=== PATIENT | male | born 1960 | race Caucasian/White ===

== ENCOUNTER 2018-10-13 05:57 | Observation (INO) | payer MEDICARE, MEDICAID ==
[2018-10-13] MEDS ORDERED: ceFAZolin 2 GM PREMIX in ORs 2 GM/50 ML BAG IVPB ONE (06:40)
[2018-10-13] MEDS ORDERED: Bupivacaine 0.5%* 50 ML VIAL ONE (06:47)
[2018-10-13] MEDS ORDERED: fentaNYL* 50 MCG/ML 2 ML VIAL (100 MCG VIAL) ONE (07:03)
[2018-10-13] MEDS ORDERED: Propofol* 10 MG/ML 20 ML BTL ONE (07:03)
[2018-10-13] MEDS ORDERED: Midazolam* 1 MG/ML 2 ML VIAL (2 MG) ONE (07:03)
[2018-10-13] MEDS ORDERED: Lidocaine 2% PF * 5 ML VIAL ONE (07:03)
[2018-10-13] MEDS ORDERED: Phenylephrine 10 MG/ML VIAL* 1 ML VIAL ONE (07:46)
[2018-10-13] MEDS ORDERED: VASOPRESSIN 20 UNITS/ML 1 ML VIAL ONE (07:49)
[2018-10-13] MEDS ORDERED: Naloxone* 0.4 MG/ML 1 ML VIAL IV PRN (08:07)
[2018-10-13] MEDS ORDERED: DiMENhydriNATE IV* 50 MG/ML VIAL IV PUSH PRN (08:07)
[2018-10-13] MEDS ORDERED: Metoclopramide IV* 5 MG/ML 2 ML VIAL ONE (08:07)
[2018-10-13] MEDS ORDERED: Dexamethasone IV* 4 MG/ML 1 ML (4 MG) ONE (08:07)
[2018-10-13] MEDS ORDERED: Ondansetron INJ* 2 MG/ML VIAL ONE (08:07)
[2018-10-13] MEDS ORDERED: Succinylcholine* 20 MG/ML 10 ML VIAL ONE (08:44)
[2018-10-13] MEDS ORDERED: Acetaminophen TAB* 325 MG PO PRN ×2 (09:08→09:20)
[2018-10-13] MEDS ORDERED: Bisacodyl SUPP* 10 MG SUPP PR PRN (09:08)
[2018-10-13] MEDS ORDERED: diPHENhydraMINE IV* 50 MG/ML 1 ml VIAL (BENADRYL) IV PRN (09:08)
[2018-10-13] MEDS ORDERED: oxyCODONE/Acetamin 5/325 MG* TAB PO PRN (09:08)
[2018-10-13] MEDS ORDERED: Magnesium Hydroxide LIQ* 30 ML UDC PO PRN (09:08)
[2018-10-13] MEDS ORDERED: oxyCODONE TAB* 5 MG TAB PO PRN (09:08)
[2018-10-13] MEDS ORDERED: oxyCODONE TAB* 5 MG TAB ONE ×2 (09:25→09:28)
[2018-10-13] MEDS: oxyCODONE TAB* 5 MG TAB PO PRN ×2 (09:26→09:28)
--- NOTE | 2018-10-13 09:27 | OP ---
Operative Report - Blank - Operative Report Date of Operation: 10/13/18 Note: PATIENT: William Castro DATE OF : 1960 DATE OF SURGERY: 10/13/2018 SURGEON: Bala Colon MD GENERAL FARM MANAGER: SHIVAM Cosme, whos assistance was necessary for positioning, retraction, help with instrumentation, and closure. ANESTHESIOLOGIST: Dr. Hernandez PREOPERATIVE DIAGNOSIS: Left ankle instability and peroneal tenosynovitis. POSTOPERATIVE DIAGNOSIS: Left ankle instability, peroneus brevis and longus tendon tears, and peroneal tenosynovitis. OPERATION: 1. Left ankle modified Brostrom procedure lateral ligament reconstruction. 2. Left peroneal tendon exploration with peroneus longus and peroneus brevis tenolysis, tenosynovectomy and excision of low-lying peroneus brevis muscle belly. ANESTHESIA: General IMPLANTS: none TOURNIQUET TIME: Less than 1 hour with an ankle Esmarch tourniquet SPECIMENS: none ESTIMATED BLOOD LOSS: minimal COMPLICATIONS: none STATUS: Stable from the operating room to the recovery room and then home. INDICATIONS FOR PROCEDURE: William has had persistent left ankle pain and instability despite extensive nonoperative treatment. Both operative and non operative treatment alternatives were reviewed. Further, the nature and risks of surgery were reviewed in careful detail, in the office as well as the pre-operative holding area. Our discussions regarding the risks of surgery included, but were not limited to, infection, wound problems, nerve injury, neuroma, RSD, persistent symptoms, recurrent instability, blood clot, failure of the surgery, and even the remote chance of catastrophic complication, including loss of limb. DESCRIPTION OF PROCEDURE: The patient was seen in the preoperative holding unit and informed written consent was obtained. The appropriate extremity was marked. The patient was then brought to the operating room and carefully positioned on the operating room table. Anesthesia was induced. All bony prominences were padded with great care. A chlorhexidine based pre-scrub was performed followed by a chloraprep prep and drape in standard sterile fashion. A surgical safety pause was then conducted in which we confirmed the appropriate patient, extremity, planned procedure, availability of equipment, indication and administration of prophylactic antibiotics, and DVT prophylaxis in the form of a compression boot on the non-surgical extremity. An Esmarch exsanguination of the limb was performed followed by the placement of an ankle Esmarch tourniquet. I utilized an incision overlying the distal fibula laterally. I carried the dissection down through the soft tissue to the level of the periosteum and superior peroneal retinaculum (SPR) with care taken to protect the sural nerve, which was not visualized during the procedure. I carefully incised the SPR off of the posterior fibula to expose the peroneal tendons. Dissection of the tendons was carried distally. The tendons were explored at this time for any tears. There were tears of both the peroneus longus and peroneus brevis tendons, but both tears were more degenerative appearing and not repairable. The torn parts of the tendons were sharply excised with tenotomy scissors. This left about 90% of the tendons intact. The remaining tendons appeared healthy and viable. There was a large amount of inflamed tenosynovium in the tendon sheath so an extensive tenosynovectomy was performed. Additionally, there was a low-lying peroneus brevis muscle belly which was debrided and excised. At this point, I carefully inspected the peroneal groove at the posterior aspect of the fibula. This was deemed to have adequate depth so the decision was made not to perform a groove deepening procedure. So at this point I carefully planned out the repair of the superior peroneal retinaculum. I then reduced the tendons and they sat nicely in the retro-fibular groove. The wound was copiously irrigated. I repaired the SPR utilizing #1 Vicryl suture in a transosseous horizontal mattress suture pattern. I utilized multiple sutures for this repair, appropriately tensioning the SPR. I was able to pass a [place] under the repaired SPR without difficulty after the repair. I then dissected anteriorly to expose the anterolateral ankle ligaments. We protected the superficial peroneal nerve at all times, which was not visualized within our field. Once we had adequately exposed a pocket anterior to the ligaments, we sharply took the ligaments down off of the anterior and distal aspect of the fibula using a 15 blade. The inferior extensor retinaculum was exposed and protected for subsequent repair later in the procedure. I then utilized a rongeur to make a trough along the fibula to receive the reconstructed ligaments. I then utilized K-wires to drill holes in the fibula for a transosseous suture repair of the lateral ligaments utilizing a horizontal mattress suture. Multiple #1 Vicryl sutures were passed through the fibula and then through the ligaments and then back through the fibula. These sutures were all passed with great care taken to appropriately tension both the ATFL as well as the CFL in order to get a nice tight repair. We held the ankle in a dorsiflexed and everted position while the ligaments and sutures were tied down over the fibular bone bridges. These held the ankle in a much improved position with excellent tension on the ligaments. We then utilized a rotational flap from the periosteum overlying the distal fibula to augment the repair. This was sewn down using a horizontal mattress stich overlying the ATFL. We further augmented the repair by bringing the inferior extensor retinaculum up to the fibula. There was a much improved anterior drawer at this point as compared to pre-operatively. The wound was copiously irrigated. We then irrigated the wound copiously again. The wound was closed in a layered fashion utilizing 3-0 Monocryl and 3-0 nylon. A sterile dressing was then applied and the ankle was splinted in a neutral position. All needle and sponge counts were correct at the end of the case. The patient was awakened from anesthesia and transferred to the recovery room in stable condition. There were no complications. ATTESTATION: I attest I was present and scrubbed and performed the critical portions of the procedure myself. POST-OPERATIVE PLAN: The patient will remain [id number] for an anticipated duration of 6 weeks. Follow up will be in 2 weeks for likely suture removal and transition into a short leg cast.
[2018-10-13] MEDS ORDERED: HYDROmorphone INJ1* 1 MG/ML SYRINGE ONE (09:28)
[2018-10-13] MEDS: HYDROmorphone INJ1* 1 MG/ML SYRINGE IV PRN ×4 (09:29→11:51)
[2018-10-13] MEDS ORDERED: Lactated Ringers 1000 ML Bag* 1,000 ML IV SCH (10:00)
--- NOTE | 2018-10-13 11:12 | PN ---
Progress Note - Progress Note Date of Service: 10/13/18 SOAP: Subjective: [Pt has just undergone surgery, a left lateral ligament ankle reconstruction ] Assessment: [S/P Left lateral ligament ankle reconstruction Plan: [Pt will stay overnight for observation today. We feel given that he has a high chance of developing pain and swelling with his splint in place, we would also like to have neurovascular checks done frequently. He does also have a history of Coumadin and plavix which he will need to restart tonight and tomorrow morning respectively. He will be seen by PT and evaluated NWB LLE We feel he is unasfe to be discharged home at this point ]
[2018-10-13] MEDS: oxyCODONE/Acetamin 5/325 MG* TAB PO PRN ×2 (13:00→17:06)
[2018-10-13] MEDS: ceFAZolin 1 GM ADVAN(*) 1 GM in NS 0.9% 50 ML* 50 ML IVPB SCH ×2 (14:02→22:04)
[2018-10-13] MEDS: Morphine 4 MG/ML VIAL (1 ml) 4 MG/ML VIAL IV PRN ×2 (14:09→18:50)
[2018-10-13] MEDS ORDERED: Warfarin TAB(*) 5 MG PO SCH (17:00)
[2018-10-13] MEDS: buPROPion SR TAB.SR* 150 MG PO SCH (20:45)
[2018-10-13] MEDS: Docusate CAP* 100 MG PO SCH (20:45)
[2018-10-13] MEDS: Venlafaxine EXT RELEASE CAP* 75 MG PO SCH (20:45)
[2018-10-13] MEDS: Cilostazol TAB* 100 MG PO SCH (20:46)
[2018-10-13] MEDS: ALPRAZolam TAB* 0.5 MG PO PRN (20:51)
[2018-10-13] MEDS: Magnesium Hydroxide LIQ* 30 ML UDC PO SCH (20:51)
[2018-10-13] MEDS: Cyclobenzaprine TAB* 10 MG PO PRN (20:52)
[2018-10-13] MEDS ORDERED: Atorvastatin* 40 MG TAB PO SCH (21:00)
[2018-10-13] MEDS ORDERED: traZODone TAB* 50 MG TAB PO SCH (21:00)
[2018-10-14] MEDS: oxyCODONE/Acetamin 5/325 MG* TAB PO PRN ×4 (00:55→13:25)
[2018-10-14] MEDS: ceFAZolin 1 GM ADVAN(*) 1 GM in NS 0.9% 50 ML* 50 ML IVPB SCH (05:48)
[2018-10-14 06:13] LABS: Hematocrit 35 % (42-52); Hemoglobin 12.5 g/dL (14.0-18.0); Mean Platelet Volume 6.8 fL (7.4-10.4); Platelet Count 277 10^3/uL (150-450)
[2018-10-14 06:28] LABS: BUN/Creatinine Ratio 11.8 (8-20); EGFR African American 83.2 (>60); EGFR Non-African American 68.8 (>60); Potassium 3.8 mmol/L (3.5-5.0)
[2018-10-14] MEDS: Magnesium Hydroxide LIQ* 30 ML UDC PO SCH (08:01)
[2018-10-14] MEDS: Venlafaxine EXT RELEASE CAP* 75 MG PO SCH (08:01)
[2018-10-14] MEDS: ALPRAZolam TAB* 0.5 MG PO PRN (08:01)
[2018-10-14] MEDS: Docusate CAP* 100 MG PO SCH (08:01)
[2018-10-14] MEDS: Cilostazol TAB* 100 MG PO SCH (08:01)
[2018-10-14] MEDS: buPROPion SR TAB.SR* 150 MG PO SCH (08:01)
[2018-10-14] MEDS: Cyclobenzaprine TAB* 10 MG PO PRN (08:02)
--- NOTE | 2018-10-14 08:59 | PN ---
Progress Note - Progress Note Date of Service: 10/14/18 SOAP: Subjective: POD #1 Left ankle ligament reconstruction, peroneal tenolysis. Doing well, pain controlled. Has not been OOB yet. Denies CP/SOB, calf pain, f/c, n/v. Objective: Vitals: Temp Pulse Resp BP Pulse Ox 97.8 F 70 18 122/61 95 10/14/18 03:58 10/14/18 03:58 10/14/18 08:02 10/14/18 03:58 10/14/18 03:58 Gen: A&Ox3, NAD at rest sitting in bed LLE: Splint C/D/I. +f/e at MTPs. N/V intact Labs: Laboratory Results - last 24 hr 0510/14/18 05:46 05:46 Hgb 12.5 L Hct 35 L Plt Count 277 MPV 6.8 L Sodium 138 Potassium 3.8 Chloride 106 Carbon Dioxide 28 Anion Gap 4 BUN 13 Creatinine 1.10 Est GFR ( Amer) 83.2 Est GFR (Non-Af Amer) 68.8 BUN/Creatinine Ratio 11.8 Glucose 118 H Calcium 8.0 L Assessment: POD #1 Left ankle ligament reconstruction, peroneal tenolysis Plan: NWB LLE Pt to work with PT, if stable he can be d/c'd home with VNS, otherwise would need CRISELDA Plavix and Coumadin restarted, bridge with Lovenox
[2018-10-14] MEDS ORDERED: Clopidogrel TAB* 75 MG PO SCH (09:00)
[2018-10-14] MEDS ORDERED: Vitamin THERAPEUTIC TAB PO SCH (09:00)
[2018-10-14] MEDS ORDERED: Enoxaparin(*) 80 MG/0.8 ML SYR SUBCUT SCH (09:00)
[2018-10-14] MEDS ORDERED: Lisinopril TAB* 10 MG PO SCH (09:00)
--- NOTE | 2018-10-14 10:04 | DS ---
Orthopedic Discharge Summary - Discharge Summary Date of Admission:10/13/18 Date of Discharge: 10/14/18 Date of Surgery: 10/13/18 Attending Orthopedic Provider: Bala Colon MD Pre-operative Diagnosis: Left ankle instability Operative Procedure: Left ankle ligament repair with peroneal tenolysis Disposition of Patient: Home Condition of Patient: Stable History: LUCAS RAMIREZ is a 58 year old M with years of increasingly severe left ankle pain and instability. Patient has failed conservative management and has elected to undergo a left ankle ligament repair. Hospital Course: LUCAS was admitted to [facility] on 10/13/18. Patient underwent a left ankle ligament repair with peroneal tenolysis without complication followed by a brief recovery in PACU and transfer to the Short Stay Surgical Unit in stable condition. Post-op day 1: patient was alert and in no acute distress. Dressing was clean, dry and intact. Operative extremity sensation intact to light touch distally, good capillary refill. Patient was deemed to be medically and orthopedically stable for discharge. Physical therapy goals were met. He was able to use a knee scooter to ambulate safely. Home Medications Medication Instructions Recorded Confirmed Type Cilostazol TAB* [Pletal TAB*] 100 mg PO BID 04/19/12 10/13/18 History Lisinopril [Lisinopril 2.5 MG-] 20 mg PO QAM 04/19/12 10/13/18 History Trazodone HCl 50 - 100 mg PO BEDTIME 04/19/12 10/13/18 History Warfarin [Coumadin] 5 mg PO 1700 04/19/12 10/13/18 History Cyclobenzaprine TAB* [Flexeril 10 mg PO TID PRN 02/02/14 10/13/18 History TAB*] ALPRAZolam [Alprazolam] 1 mg PO TID PRN 10/06/18 10/13/18 History Atorvastatin* [Lipitor*] 40 mg PO 2100 10/06/18 10/13/18 History Clopidogrel Bisulfate [Plavix] 75 mg PO QAM 10/06/18 10/13/18 History Venlafaxine ER (NF) [Effexor ER 150 mg PO BID 10/06/18 10/13/18 History (NF)] Diclofenac 1% GEL (NF) [Voltaren 1 applic TOPICAL TID PRN 10/10/18 10/13/18 History 1% GEL (NF)] Enoxaparin Sodium [Lovenox] 80 mg SQ Q12HR 10/10/18 10/13/18 History buPROPion HCl [Bupropion HCl Sr] 150 mg PO BID 10/13/18 10/13/18 History DISCHARGE INSTRUCTIONS: Non-weightbearing left leg with scooter or walker Wound Care: Keep splint on and dry until follow up Call Orthopedic office for increased pain, or fever. Go to ER with shortness of breath or chest pain. Diet: Regular diet, increase fluids and fiber to prevent constipation. Continue to use stool softeners, call office if no bowel motion within 48 hours. - Visiting home nurse to draw blood work for INR on Wednesday and and to provide home health aide DVT Prophylaxis: - Coumadin Dosing: Resume home dose of Coumadin (5mg daily except Wednesday and take 2.5mg) - Resume Plavix also - Lovenox 40mg daily until follow up with Coumadin clinic next week - Pain control with: Oxycodone 1 tab every 6 hours as needed FOLLOW UP: Follow up with Dr. Colon Within 10-14 days, call for appointment Please call our office with any questions or concerns ([phone]) Medications sent to [facility] to beds inpatient pharmacy
[2018-10-14 11:33] LABS: INR 1.17 (0.82-1.09)
[2018-10-14 14:02] VITALS: BP 105/52
[2018-10-14] MEDS ORDERED: Warfarin TAB(*) 5 MG PO SCH (17:00)
== END 2018-10-14 14:52 | disposition home or self-care (01) ==
LOC: OR 05:57 → SSU 09:08
PROVIDERS: ADMIT Orthopaedic Surgery; ATTEND Orthopaedic Surgery
DX: M25.372 Other instability, left ankle (principal); M76.72 Peroneal tendinitis, left leg; Z87.891 Personal history of nicotine dependence; Z88.6 Allergy status to analgesic agent; I10 Essential (primary) hypertension; I73.1 Thromboangiitis obliterans [Buerger's disease]; I82.409 Acute embolism and thrombosis of unspecified deep veins of unspecified lower extremity; E78.5 Hyperlipidemia, unspecified; F32.9 Major depressive disorder, single episode, unspecified; Z79.01 Long term (current) use of anticoagulants
CPT/HCPCS: 36415; 80048; 85014; 85018; 85049; 85610; 96365; 96366; 96367; 96372; 96375; 96376; A9270-GY; C1776; G0378; G8978-GP-CJ; G8979-GP-CI; G8987-GO-CI; G8988-GO-CH; J0330; J0690; J1100; J1170; J1650; J2250; J2270; J2405; J2704; J2765; J3010; J3490

== ENCOUNTER 2018-10-17 12:46 | Emergency (ER) | payer MEDICARE, MEDICAID ==
--- OUTSIDE RECORDS SUMMARY | 2018-10-17 13:21 | XMS REPORT | Continuity of Care Document ---
:1960 External Reference #:[id number] Author Name SNOW Croft Address [address] [place] [address] Care Team Providers Name Role Phone Frank Hardy MD Primary Care Physician Unavailable Payers Date Identification Numbers Payment Provider Subscriber Policy Number: [id number] Medicare William Castro PayID: [id number] [address] [place] [address] Policy Number: [id number] Medicaid William Castro Group Name: 1 1 [address] PayID: [id number] [place] [address] Effective: 2014 Policy Number: [employer] William Castro [id number] Claims Onset: 2014 Group Number: [id number] [address] [address] Group Name: [id number] [place] [address] PayID: [id number] Advance Directives Description No Information Available Problems Active Problems Provider Date Peroneal tendinitis, left leg Bala Colon MD Onset: 05/17/2018 Joint derangement Bala Colon MD Onset: 05/17/2018 Family History Description No Information Available Social History Type Date Description Comments Sex Unknown Tobacco Use Start: Unknown End: Unknown Patient is a former smoker Smoking Status Reviewed: 09/14/18 Patient is a former smoker Allergies, Adverse Reactions, Alerts Active Allergies Reaction Severity Comments Date Aspirin hives 05/17/2018 Medications Active Medications SIG Qnty Indications Ordering Provider Date Knee Scooter Disp 1 knee scooter M25.372 Akiko Dyer MD 10/04/2018 History Medications No Active Medications Unknown 05/17/2018 - 10/04/2018 Immunizations Description No Information Available Vital Signs Date Vital Result Comment 09/14/2018 1:06pm Height 70 inches 5'10" Weight 172.00 lb Heart Rate 80 /min BP Systolic 122 mmHg BP Diastolic 80 mmHg Body Temperature 97.3 F Pain Level 5 BMI (Body Mass Index) 24.7 kg/m2 07/06/2018 2:03pm Height 70 inches 5'10" Weight 171.00 lb Heart Rate 98 /min BP Systolic 138 mmHg BP Diastolic 80 mmHg Respiratory Rate 16 /min Body Temperature 99.0 F Pain Level 5 BMI (Body Mass Index) 24.5 kg/m2 05/17/2018 7:56am Height 70 inches 5'10" Weight 171.00 lb Heart Rate 82 /min Respiratory Rate 16 /min Body Temperature 97.0 F Pain Level 7 BMI (Body Mass Index) 24.5 kg/m2 Results Description No Information Available Procedures Description No Information Available Encounters Type Date Location Provider Dx Diagnosis Office Visit 09/14/2018 Orthopedic Bala Colon M25.372 Other 1:[facility]p [facility] instability, left ankle M76.72 Peroneal tendinitis, left leg Office Visit 07/06/2018 Orthopedic Bala Colon, M25.372 Other instability, 2:30p [facility] 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
[2018-10-17 14:11] VITALS: BP 106/68
--- NOTE | 2018-10-17 15:34 | ED ---
Adult Trauma - HPI Summary HPI Summary: Patient is a 58-year-old male who had recently had left foot surgery presenting to the ED after 3 falls in the past 3 days from arriving home from his surgery. He states he has been falling because he does not have a scooter at home. He has a walker given to him but he states the walker is too big for his apartment. For this reason he has not been using it. He has been hopping around on his right leg due to the nonweightbearing status of his left leg. As he is hopping on his right leg, he will often trip and fall. He denies any injuries after he falls. Denies any pain at this time. He states he called the orthopedic clinic and advised him to come here for further evaluation of his falls. Upon EMS arrival , he was placed in a cervical collar. He states his neck does not hurt, but this was precaution. - History of Current Complaint Chief Complaint: EDFall Stated Complaint: FALL/EVAL PER EMS Time Seen by Provider: 10/17/18 12:59 Hx Obtained From: Patient Mechanism of Injury: Fall Onset/Duration: Started Days Ago Onset of Pain: Minutes Onset Severity: Mild Current Severity: Mild Pain Intensity: 0 Pain Scale Used: 0-10 Numeric Aggravating Factor(s): Nothing Alleviating Factor(s): Nothing - Allergy/Home Medications Allergies/Adverse Reactions: Allergies Allergy/AdvReac Type Severity Reaction Status Date / Time aspirin Allergy Intermediate Hives Verified 10/13/18 06:48 Adhesive Tape Allergy Tears skin Verified 10/13/18 06:48 off latex Allergy Rash Verified 10/13/18 06:48 PMH/Surg Hx/FS Hx/Imm Hx Previously Healthy: Yes Endocrine/Hematology History: Reports: Hx Anticoagulant Therapy - coumadin Denies: Hx Diabetes, Hx Thyroid Disease Cardiovascular History: Reports: Hx Deep Vein Thrombosis - three bypasses, Hx Hypercholesterolemia, Hx Hypertension, Hx Peripheral Vascular Disease - 3 bypass /stents to the left leg-fem iliac/fem pop-left toe amputation, Other Cardiovascular Problems/Disorders - Hyperlipidemia Respiratory History: Denies: Hx Asthma, Hx Chronic Obstructive Pulmonary Disease (COPD), Other Respiratory Problems/Disorders GI History: Denies: Hx Ulcer, Other GI Disorders History: Denies: Other Problems/Disorders Musculoskeletal History: Reports: Hx Arthritis, Hx Back Problems, Hx Tendonitis - Peroneal tendinitis, left leg, Other Musculoskeletal History - Left chronic ankle instability-joint derangement Sensory History: Reports: Hx Contacts or Glasses - Glasses, Hx Hearing Aid - Bilateral Opthamlomology History: Reports: Hx Contacts or Glasses - Glasses Neurological History: Reports: Hx Nerve Disease - peripheral neuropathy Denies: Other Neuro Impairments/Disorders Psychiatric History: Reports: Hx Anxiety, Hx Depression Denies: Hx Suicide Attempt, Hx Substance Abuse - Surgical History Surgery Procedure, Year, and Place: 3 Bypasses, Femoral, Popliteal, [place], 3 Stents Left Leg [facility]. Rotator cuff repair 2014 [facility]. NASAL SEPTOPLASTy 1999 [facility] Hx Anesthesia Reactions: No Infectious Disease History: No Infectious Disease History: Denies: Hx Hepatitis, Hx Human Immunodeficiency Virus (HIV), Traveled Outside the [place] in Last 30 Days - Family History Known Family History: Negative: Cardiac Disease, Hypertension - Social History Occupation: Unemployed Lives: Alone Alcohol Use: Occasionally Hx Substance Use: No Substance Use Type: Reports: None Hx Tobacco Use: Yes Smoking Status (MU): Former Smoker Type: Cigarettes Amount Used/How Often: 1-2 PPD for 22 years Review of Systems Negative: Fever, Chills, Fatigue, Skin Diaphoresis Negative: Palpitations, Chest Pain Negative: Shortness Of Breath, Cough Genitourinary: Negative Positive: no symptoms reported, see HPI Musculoskeletal: Negative Skin: Negative Neurological: Negative All Other Systems Reviewed And Are Negative: Yes Physical Exam Triage Information Reviewed: Yes Vital Signs On Initial Exam: Initial Vitals Pulse Pulse Ox 78 90 10/17/18 12:49 10/17/18 12:49 Vital Signs Reviewed: Yes Appearance: Positive: Well-Appearing, Well-Nourished Skin: Positive: Warm, Skin Color Reflects Adequate Perfusion Head/Face: Positive: Normal Head/Face Inspection Eyes: Positive: EOMI, Conjunctiva Clear Neck: Positive: Supple, No Lymphadenopathy Cardiovascular: Positive: RRR, Pulses are Symmetrical in both Upper and Lower Extremities Musculoskeletal: Positive: Normal, Strength/ROM Intact Neurological: Positive: Speech Normal Psychiatric: Positive: Affect/Mood Appropriate AVPU Assessment: Alert Diagnostics - Vital Signs Vital Signs Temp Pulse Resp BP Pulse Ox 10/17/18 14:10 98.9 F 84 16 106/68 92 10/17/18 13:50 66 84/50 90 10/17/18 13:20 107/59 10/17/18 13:00 71 95 05/20/19 12:50 98.7 F 76 17 93/53 92 10/17/18 12:49 78 90 - Laboratory Lab Statement: Any lab studies that have been ordered have been reviewed, and results considered in the medical decision making process. Adult Trauma Course/Dx - Course Course Of Treatment: Patient is evaluated for multiple falls in the past 3 days due to hopping around his apartment. He states he has not been able to secure a scooter as he is #18 on the waiting list. He is unable to use his walker well at home due to the size of his apartment. Patient denies any CP, SOB, neck pain, back pain, headache, head injury, LOC or any other injuries after his falls. He denies any dizziness or weakness as the cause of his falls. He states these are mechanical. He states he is feeling otherwise well at this time. He called the ambulance as he had no way to get to the ED. Discussed case with social work who suggested calling that [employer] in attempts to borrow one until he can secure one of his own. He states he is okay for discharge at this time and will continue to attempt to use his walker more to prevent further falling. - Diagnoses Provider Diagnoses: Accident due to mechanical fall without injury Discharge - Sign-Out/Discharge Documenting (check all that apply): Patient Departure Patient Received Moderate/Deep Sedation with Procedure: No - Discharge Plan Condition: Stable Disposition: HOME Referrals: Frank Hardy MD [Primary Care Provider] - Additional Instructions: Please call [employer] to try to obtain a scooter [employer] Address: [address] [place] [address] Hours: 8:30a-5pm - Billing Disposition and Condition Condition: STABLE Disposition: Home
== END 2018-10-17 14:10 | disposition home or self-care (01) ==
LOC: ED 12:46
DX: Z04.3 Encounter for examination and observation following other accident (principal); Z86.718 Personal history of other venous thrombosis and embolism; E78.00 Pure hypercholesterolemia, unspecified; I10 Essential (primary) hypertension; I73.9 Peripheral vascular disease, unspecified; E78.5 Hyperlipidemia, unspecified; G62.9 Polyneuropathy, unspecified; Z87.891 Personal history of nicotine dependence; Z79.01 Long term (current) use of anticoagulants; Z98.890 Other specified postprocedural states; W18.09XA Striking against other object with subsequent fall, initial encounter; Y92.9 Unspecified place or not applicable
CPT/HCPCS: 99282

== ENCOUNTER 2018-10-18 12:53 | Observation (INO) | payer MEDICARE, MEDICAID ==
--- NOTE | 2018-10-18 14:06 | ED ---
Adult Trauma - HPI Summary HPI Summary: Patient is a 58-year-old male with a recent history of left sided foot and ankle surgery performed by Dr. Slater presenting to the ED with frequent falls. He was seen in the ED yesterday. Yesterday, social work was consulted to obtain a scooter. Patient states he has been unable to use his walker at home due to the size of his apartment. Provider had given him the phone number and information on [employer] to contact to borrow scooter. Patient states he is currently on the waiting list and is #18. Yesterday, he was comfortable with discharge home. Today he arrives requesting alf placement or placement to the hospital due to his frequent falls. He states since being discharged yesterday he has fallen 2-3 more times. He is now endorsing pain to the left hip. He states he has not tried to bear any weight on the hip as he is not to bear any weight on the foot. He has not been taking pain medication at home including ibuprofen or Tylenol. States he is allergic to ibuprofen as he is currently on Coumadin. Denies any other injuries status post falls. - History of Current Complaint Chief Complaint: EDFall Stated Complaint: LEFT LEG PAIN PER PT Time Seen by Provider: 10/18/18 12:58 Hx Obtained From: Patient Mechanism of Injury: Direct Blow Ambulatory at the Scene: No Onset Severity: Mild Current Severity: Mild Pain Intensity: 9 Pain Scale Used: 0-10 Numeric Character: Aching Aggravating Factor(s): Nothing Alleviating Factor(s): Nothing Associated Signs & Symptoms: Positive: Negative - Allergy/Home Medications Allergies/Adverse Reactions: Allergies Allergy/AdvReac Type Severity Reaction Status Date / Time aspirin Allergy Intermediate Hives Verified 10/18/18 13:09 Adhesive Tape Allergy Tears skin Verified 10/18/18 13:09 off latex Allergy Rash Verified 10/18/18 13:09 PMH/Surg Hx/FS Hx/Imm Hx Previously Healthy: Yes Endocrine/Hematology History: Reports: Hx Anticoagulant Therapy - coumadin Denies: Hx Diabetes, Hx Thyroid Disease Cardiovascular History: Reports: Hx Deep Vein Thrombosis - three bypasses, Hx Hypercholesterolemia, Hx Hypertension, Hx Peripheral Vascular Disease - 3 bypass /stents to the left leg-fem iliac/fem pop-left toe amputation, Other Cardiovascular Problems/Disorders - Hyperlipidemia Respiratory History: Denies: Hx Asthma, Hx Chronic Obstructive Pulmonary Disease (COPD), Other Respiratory Problems/Disorders GI History: Denies: Hx Ulcer, Other GI Disorders History: Denies: Other Problems/Disorders Musculoskeletal History: Reports: Hx Arthritis, Hx Back Problems, Hx Tendonitis - Peroneal tendinitis, left leg, Other Musculoskeletal History - Left chronic ankle instability-joint derangement Sensory History: Reports: Hx Contacts or Glasses - Glasses, Hx Hearing Aid - Bilateral Opthamlomology History: Reports: Hx Contacts or Glasses - Glasses Neurological History: Reports: Hx Nerve Disease - peripheral neuropathy Denies: Other Neuro Impairments/Disorders Psychiatric History: Reports: Hx Anxiety, Hx Depression Denies: Hx Suicide Attempt, Hx Substance Abuse - Surgical History Surgery Procedure, Year, and Place: 3 Bypasses, Femoral, Popliteal, Illiac, 3 Stents Left Leg [facility]. Rotator cuff repair 2014 [facility]. NASAL SEPTOPLASTy 1999 [facility] Hx Anesthesia Reactions: No Infectious Disease History: No Infectious Disease History: Denies: Hx Hepatitis, Hx Human Immunodeficiency Virus (HIV), Traveled Outside the [place] in Last 30 Days - Family History Known Family History: Negative: Cardiac Disease, Hypertension - Social History Occupation: Unemployed Lives: Alone Alcohol Use: Occasionally Hx Substance Use: No Substance Use Type: Reports: None Hx Tobacco Use: Yes Smoking Status (MU): Former Smoker Type: Cigarettes Amount Used/How Often: 1-2 PPD for 22 years Review of Systems Constitutional: Negative Negative: Fever, Chills, Fatigue Negative: Palpitations, Chest Pain Negative: Shortness Of Breath, Cough Genitourinary: Negative Positive: no symptoms reported, see HPI Positive: Arthralgia - left lateral hip pain s/p fall this morning Positive: Rash Neurological: Negative All Other Systems Reviewed And Are Negative: Yes Physical Exam Triage Information Reviewed: Yes Vital Signs On Initial Exam: Initial Vitals Temp Pulse Resp BP Pulse Ox 97.6 F 79 16 125/63 100 10/18/18 12:57 10/18/18 12:57 10/18/18 12:57 10/18/18 12:57 10/18/18 12:57 Vital Signs Reviewed: Yes Appearance: Positive: Well-Appearing, Well-Nourished Skin: Positive: Warm, Skin Color Reflects Adequate Perfusion Head/Face: Positive: Normal Head/Face Inspection Eyes: Positive: EOMI, Conjunctiva Clear Neck: Positive: Supple, No Lymphadenopathy Respiratory/Lung Sounds: Positive: Clear to Auscultation, Breath Sounds Present Cardiovascular: Positive: RRR, Pulses are Symmetrical in both Upper and Lower Extremities Musculoskeletal: Positive: Pain @ - left hip pain - lateral Neurological: Positive: Sensory/Motor Intact, Alert, Oriented to Person Place, Time Psychiatric: Positive: Normal, Affect/Mood Appropriate AVPU Assessment: Alert Diagnostics - Vital Signs Vital Signs Temp Pulse Resp BP Pulse Ox 10/18/18 12:57 97.6 F 79 16 125/63 100 - Laboratory Lab Statement: Any lab studies that have been ordered have been reviewed, and results considered in the medical decision making process. Adult Trauma Course/Dx - Course Course Of Treatment: Patient is not complaining of left sided hip pain from one of his falls over the past day. He was seen in the ED yesterday and discharged home. Today he is willing to be admitted at this time and is requesting this as he has been having too many frequent falls and is concerned over his health and the recovery to his foot and ankle. He has not been taking any medications including ibuprofen or Tylenol. He does endorse some pain to the incision site of the left foot. Denies any weakness, fevers, sweats, chills. He continues to state these falls are mechanical as he does not have a scooter at home. I discussed this with [facility] social work, who agrees to come see patient. Physical therapy is ordered from the ED. Discussed case with Dr. Caban to attempt at admission due to frequent falls. Left hip x-ray obtained and pending. Labs pending. Patient is signed out to Eddie Beach PA-C pending admission/discharge status, labs and xray. - Diagnoses Differential Diagnosis/HQI/PQRI: Positive: Contusion(s), Fracture, Other - frequent falls, weakness Provider Diagnoses: Fall Discharge - Sign-Out/Discharge Documenting (check all that apply): Sign-Out Patient Signing out patient TO: Eddie Beach Patient Received Moderate/Deep Sedation with Procedure: No - Discharge Plan Condition: Fair Referrals: Frank Hardy MD [Primary Care Provider] - - Billing Disposition and Condition Condition: FAIR
[2018-10-18 14:17] LABS: ABS Eosinophils 0.2 10^3/ul (0-0.6); ABS Lymphocytes 0.9 10^3/ul (1.0-4.8); ABS Monocytes 0.4 10^3/ul (0-0.8); ABS Neutrophils 3.9 10^3/ul (1.5-7.7); Eosinophil % 3.2 %; Hematocrit 37 % (42-52); Hemoglobin 12.9 g/dL (14.0-18.0); Lymphocyte % 16.3 %; Mean Corpuscular HGB Conc 34 g/dL (31-36); Mean Corpuscular Hemoglobin 34 pg (27-31); Mean Corpuscular Volume 100 fL (80-94); Nucleated Red Blood Cells % 0.1; Platelet Count 396 10^3/uL (150-450); Red Blood Count 3.73 10^6 /uL (4.18-5.48); Red Cell Distribution Width 15 % (10.5-15); White Blood Count 5.3 10^3/uL (3.5-10.8)
[2018-10-18 14:34] LABS: INR 1.17 (0.82-1.09)
[2018-10-18 14:46] LABS: Albumin 3.6 g/dL (3.2-5.2); Albumin/Globulin Ratio 1.6 (1-3); BUN/Creatinine Ratio 13.5 (8-20); C Reactive Protein 67.19 mg/L (<8.01); Calcium 8.9 mg/dL (8.6-10.3); EGFR African American 88.8 (>60); EGFR Non-African American 73.4 (>60); Globulin 2.3 g/dL (2-4); Potassium 5.1 mmol/L (3.5-5.0); Total Bilirubin 1.3 mg/dL (0.2-1.0); Total Protein 5.9 g/dL (6.4-8.9)
[2018-10-18] MEDS ORDERED: Acetaminophen TAB* 325 MG PO PRN (16:04)
[2018-10-18] MEDS ORDERED: ALPRAZolam TAB* 0.5 MG PO PRN (16:12)
[2018-10-18] MEDS: oxyCODONE/Acetamin 5/325 MG* TAB PO PRN ×2 (17:33→21:41)
--- NOTE | 2018-10-18 17:51 | HP ---
CC: Dr. Frank Hardy; Dr. Colon * HISTORY AND PHYSICAL: DATE OF ADMISSION: 10/18/18 PRIMARY CARE PROVIDER: Dr. Frank Hardy. ORTHOPEDIC SURGEON: Dr. Colon. ATTENDING PHYSICIAN: Dr. Camilla Caban * (dictated by SHIVAM Villar). CHIEF COMPLAINT: Left ankle pain and difficulty with ambulation. HISTORY OF PRESENT ILLNESS: Mr. Castro is a 58-year-old male with past medical history of coronary artery disease, Buerger's, hyperlipidemia, hypertension, DVT , who presents today with complaints of left ankle pain, status post ligament repair on 10/13/18. He was then discharged to home the following day with instructions for nonweightbearing left leg with use of scooter or walker. He notes that he was unable to obtain a scooter. He states that he was offered a wheelchair, but it did not fit in his apartment and that he was not interested in a walker. It is noted that the patient was in the ER the day prior to admission on 10/17/18, stating that he has had 3 falls in the past 3 days. He presented again today stating that he has fallen approximately 5 times in the last 24 hours since the day prior. The patient notes that he has not hit his head in the process of falling. He does report left hip pain due to the fall. He also complains of left ankle pain, which he states is a 9.5/10. He states that the area is tingling. He does have a history of peripheral neuropathy. The patient denies chest pain, shortness of breath, abdominal pain, nausea, vomiting, diarrhea, constipation. He denies fever, chills, cough. He denies loss of sensation or numbness in the left foot. He denies inability to move the toes. While in the emergency room, the patient received a full workup, which included blood work and left hip/pelvis imaging. The hospitalist team was asked to evaluate the patient for admission. PAST MEDICAL HISTORY: 1. Coronary artery disease with triple bypass, 4 stents. 2. Hypertension. 3. Hyperlipidemia. 4. Buerger's disease. 5. Peripheral neuropathy. 6. Depression. 7. Anxiety. 8. History of DVT. PAST SURGICAL HISTORY: 1. Left ankle on 10/13/18. 2. Triple bypass with 4 stents. 3. Left rotator cuff. 4. Septoplasty. 5. 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 HOME MEDICATIONS: 1. Acetaminophen 650 mg p.o. q.4 hours p.r.n. pain. 2. Alprazolam 1 mg p.o. q.i.d. p.r.n. anxiety. 3. Atorvastatin 40 mg p.o. daily. 4. Bupropion SR 150 mg p.o. b.i.d. 5. Cilostazol 100 mg p.o. b.i.d. 6. Clopidogrel 75 mg p.o. daily. 7. Diclofenac 1% gel 1 application topically t.i.d. p.r.n. pain. 8. Enoxaparin 80 mg subcu daily. 9. Lisinopril 20 mg p.o. daily. 10. Trazodone 50 to 100 mg p.o. at bedtime. 11. Venlafaxine 150 mg p.o. daily. ALLERGIES: ASPIRIN, hives; LATEX, rash; ADHESIVE TAPE "tears skin off." FAMILY HISTORY: Positive for heart disease, diabetes, stroke. Negative for cancer. SOCIAL HISTORY: The patient states that he quit smoking approximately 25 years ago. Prior to that, he has smoked for about 12 years, 2 packs per day. The patient states he occasionally drinks and reports that he does not consume alcohol on a weekly basis. He is disabled. He lives home alone. In the event that he is unable to make his own medical decisions, he appoints his sister, Erika Thornton, to be his surrogate decision maker. REVIEW OF SYSTEMS: A 10-point review of systems was performed and all the pertinent positives and negatives are in the HPI. All other systems are negative. PHYSICAL EXAMINATION GENERAL: Mr. Castro is a well-developed, well-nourished, somewhat unkempt, middle- aged white male, who is sitting up in bed. He appears to be in no acute distress. He appears comfortable. He is cooperative and appropriate. VITAL SIGNS: Temperature 97.6 temporal, heart rate 79, respiratory rate 16, oxygen saturation 100% on room air, blood pressure 125/63. HEENT: PERRL. EOMI. Sclerae without icterus. The patient is noted to have hearing aids bilaterally. He is wearing glasses. Edentulous. Oral mucous membranes are moist. There are no lesions. The pharynx is clear. NECK: With full range of motion. Trachea at midline. Nontender to palpation. RESPIRATORY: Symmetrical chest expansion without use of accessory muscles. The lungs are clear to auscultation bilaterally. There is no wheeze, rhonchi, or rubs. CARDIOVASCULAR: Regular rate and rhythm with S1, S2 present. There are no murmurs, rubs, clicks, or gallops. There is no JVD. ABDOMEN: Flat. Bowel sounds noted in all quadrants. The abdomen is soft. There is mild tenderness to palpation diffusely. MUSCULOSKELETAL: Full range of motion without pain or deformities. EXTREMITIES: Skin is warm and smooth bilaterally. There is no clubbing or cyanosis. Radial pulses palpable. Right pedal pulse palpable. The patient's left leg has a partial cast that is wrapped. Dressing is clean, dry, and intact. NEURO: The patient is awake. He is alert and oriented x3. He is able to move all of his extremities. Sensation intact distally to the left foot. The left third digit has been amputated. DIAGNOSTIC STUDIES/LAB DATA: Left hip/pelvis x-ray, impression: Degenerative changes of the left hip. Pelvis ring is intact. ASSESSMENT AND PLAN: Mr. Castro is a 58-year-old male with past medical history of left ankle ligament repair on 10/13/18, coronary artery disease, Buerger's, history of deep venous thrombosis, who presented today with difficulty ambulating due to inability to obtain a scooter. He will be admitted to observation for: 1. Left ankle ligament repair, 10/13/18. Ortho recommended nonweightbearing left leg. Physical therapy and occupational therapy will be ordered. The patient should be discharged with instructions to obtain a scooter. The patient will be continued on Percocet. He will also be continued on Lovenox for DVT prophylaxis, which he last administered this morning; therefore, we will continue it tomorrow. 2. Coronary artery disease. Continue atorvastatin, lisinopril, clopidogrel. 3. Hypertension. Continue home medications. 4. Depression, anxiety. The patient's home medication of alprazolam will be ordered p.r.n. He will continue his venlafaxine and bupropion. 5. Code status: Full code. 6. DVT prophylaxis: The patient scores 2 according to the DVT Risk Assessment , which places him at moderate risk. He is on postoperative Lovenox and we will continue this at home dose. TIME SPENT: Approximately 45 minutes was spent on this admission, greater than half that time was spent with the patient obtaining history, performing physical , and reviewing the plan of care. The case has been reviewed with my attending, Dr. Caban, who is in agreement with the plan of care. SHIVAM ANDERSON [id number]/[facility] #: [id number] DANIELA
[2018-10-18] MEDS: ALPRAZolam TAB* 0.5 MG PO PRN (20:47)
[2018-10-18] MEDS: traZODone TAB* 50 MG TAB PO PRN (20:47)
[2018-10-18] MEDS: Cilostazol TAB* 100 MG PO SCH (20:47)
[2018-10-18] MEDS: buPROPion SR TAB.SR* 150 MG PO SCH (20:47)
[2018-10-19] MEDS: oxyCODONE/Acetamin 5/325 MG* TAB PO PRN ×6 (01:40→22:07)
[2018-10-19] MEDS ORDERED: Ketorolac INJ* 15 MG/ML 1 ML VIAL IV PUSH ONE (02:03)
[2018-10-19] MEDS ORDERED: Enoxaparin(*) 80 MG/0.8 ML SYR SUBCUT SCH (09:00)
[2018-10-19] MEDS: Cilostazol TAB* 100 MG PO SCH ×2 (10:12→21:18)
[2018-10-19] MEDS: Atorvastatin* 40 MG TAB PO SCH (10:12)
[2018-10-19] MEDS: buPROPion SR TAB.SR* 150 MG PO SCH ×2 (10:12→21:18)
[2018-10-19] MEDS: Venlafaxine EXT RELEASE CAP* 75 MG PO SCH (10:12)
[2018-10-19] MEDS: Lisinopril TAB* 10 MG PO SCH (10:12)
[2018-10-19] MEDS: Clopidogrel TAB* 75 MG PO SCH (10:12)
--- NOTE | 2018-10-19 11:01 | PN ---
Progress Note - Progress Note Date of Service: 10/19/18 SOAP: Subjective: []Patient seen and examined at bedside today. He returned to the ER yesterday after falling 5x at home. Falls occurred while using his walker on carpet at home, he feels falls were mechanical in nature. He is unsure if he hit his head when falling, but reports no loss of consciousness or confusion. He does not feel he injured his left foot/ankle in the falls. Has no complaints today, but feels he has been unsteady to ambulate at home with his walker Objective: []General: NAD, a&ox3 LLE: Splint CDI and in good condition. Sensation intact to light touch distally , flexion and extension of MTPs intact without associated pain. Right calf supple and nontender. Assessment: []SP Left ankle modified Brostrom procedure lateral ligament reconstruction. Left peroneal tendon exploration with peroneus longus and peroneus brevis tenolysis, tenosynovectomy and excision of low-lying peroneus brevis muscle belly now admitted due to falls at home Plan: []NWB LLE May ambulate with knee scooter with PT. Head CT due to multiple falls at home on blood thinners Xrays left foot and ankle Needs rehab placement patient is not safe for discharge to home Vital Signs Temp 97.6 F 10/19/18 08:27 Pulse 59 10/19/18 08:27 Resp 18 10/19/18 10:56 BP 97/52 10/19/18 08:27 Pulse Ox 100 10/19/18 08:27 Intake & Output 10/18/18 10/19/18 10/19/18 18:59 06:59 18:59 Intake Total 2200 210 Output Total 1175 Balance 1025 210 Weight 170 lb Intake: Oral 2200 210 Output: Urine 1175 Other: # Bowel Movements 0 Laboratory Last Values WBC 5.3 10^3/uL (3.5-10.8) 10/18/18 14:08 RBC 3.73 10^6 /uL (4.18-5.48) L 10/18/18 14:08 Hgb 12.9 g/dL (14.0-18.0) L 10/18/18 14:08 Hct 37 % (42-52) L 10/18/18 14:08 MCV 100 fL (80-94) H 10/18/18 14:08 MCH 34 pg (27-31) H 10/18/18 14:08 MCHC 34 g/dL (31-36) 10/18/18 14:08 RDW 15 % (10.5-15) 10/18/18 14:08 Plt Count 396 10^3/uL (150-450) 10/18/18 14:08 MPV 7.0 fL (7.4-10.4) L 10/18/18 14:08 Neut % (Auto) 73.1 % 10/18/18 14:08 Lymph % (Auto) 16.3 % 10/18/18 14:08 [place] % (Auto) 7.1 % 10/18/18 14:08 Eos % (Auto) 3.2 % 10/18/18 14:08 Baso % (Auto) 0.3 % 10/18/18 14:08 Absolute Neuts (auto) 3.9 10^3/ul (1.5-7.7) 10/18/18 14:08 Absolute Lymphs (auto) 0.9 10^3/ul (1.0-4.8) L 10/18/18 14:08 Absolute Monos (auto) 0.4 10^3/ul (0-0.8) 10/18/18 14:08 Absolute Eos (auto) 0.2 10^3/ul (0-0.6) 10/18/18 14:08 Absolute Basos (auto) 0.0 10^3/ul (0-0.2) 10/18/18 14:08 Absolute Nucleated RBC 0.0 10^3/ul 10/18/18 14:08 Nucleated RBC % 0.1 10/18/18 14:08 INR (Anticoag Therapy) 1.17 (0.82-1.09) H 10/18/18 14:08 Sodium 139 mmol/L (135-145) 10/18/18 14:08 Potassium 5.1 mmol/L (3.5-5.0) H 10/18/18 14:08 Chloride 105 mmol/L (101-111) 10/18/18 14:08 Carbon Dioxide 29 mmol/L (22-32) 10/18/18 14:08 Anion Gap 5 mmol/L (2-11) 10/18/18 14:08 BUN 14 mg/dL (6-24) 10/18/18 14:08 Creatinine 1.04 mg/dL (0.67-1.17) 10/18/18 14:08 Est GFR ( Amer) 88.8 (>60) 10/18/18 14:08 Est GFR (Non-Af Amer) 73.4 (>60) 10/18/18 14:08 BUN/Creatinine Ratio 13.5 (8-20) 10/18/18 14:08 Glucose 91 mg/dL (70-100) 10/18/18 14:08 Calcium 8.9 mg/dL (8.6-10.3) 10/18/18 14:08 Total Bilirubin 1.30 mg/dL (0.2-1.0) H 10/18/18 14:08 AST 35 U/L (13-39) 10/18/18 14:08 ALT 16 U/L (7-52) 10/18/18 14:08 Alkaline Phosphatase 102 U/L (34-104) 10/18/18 14:08 C-Reactive Protein 67.19 mg/L (<8.01) H 10/18/18 14:08 Total Protein 5.9 g/dL (6.4-8.9) L 10/18/18 14:08 Albumin 3.6 g/dL (3.2-5.2) 10/18/18 14:08 Globulin 2.3 g/dL (2-4) 10/18/18 14:08 Albumin/Globulin Ratio 1.6 (1-3) 10/18/18 14:08
--- NOTE | 2018-10-19 11:13 | PN ---
Subjective Date of Service: 10/19/18 Interval History: Mr. Castro is feeling about the same today. He reports 7/10 left ankle pain which is consistent with what he has been experiencing recently, though he thinks his pain has gotten worse since surgery and that is why he is falling. He is not sure if he hit his head any of those times. He has had difficulty getting around his apartment because it is mostly carpeted and he has a hard time moving the walker around. Denies CP, SOB, N/V, leg pain. He does feel he needs to go to rehab prior to returning home as he does not feel safe d/t frequent falls. To clarify surgical history: NO cardiac cath, stenting, or CABG. He has had 3 LLE bypasses - femoral, iliac, popliteal - in that order starting in 2002. Had failed stenting in all of these vessels. Vascular issues and the DVTs he has had are all secondary to Buerger's disease. Has been on Coumadin since 2002 which is when he had his first DVT. No concerns from nursing. Family History: Unchanged from Admission Social History: Unchanged from Admission Past Medical History: Unchanged from Admission Objective Active Medications: Acetaminophen (Tylenol Tab*) 650 mg PO Q4H PRN FEVER/PAIN Alprazolam (Xanax Tab*) 0.5 mg PO QID PRN ANXIETY Atorvastatin Calcium (Lipitor*) 40 mg PO DAILY [facility] Bupropion HCl (Wellbutrin Sr Tab*) 150 mg PO BID [facility] Cilostazol (Pletal Tab*) 100 mg PO BID [facility] Clopidogrel Bisulfate (Plavix Tab*) 75 mg PO DAILY [facility] Enoxaparin Sodium (Lovenox(*)) 80 mg SUBCUT BID RANDEE Lisinopril (Prinivil Tab*) 20 mg PO DAILY [facility] Oxycodone/Acetaminophen (Percocet 5/325 Tab*) 1 tab PO Q4H PRN Pain Trazodone HCl (Desyrel Tab*) 50 mg PO BEDTIME PRN INSOMNIA Venlafaxine HCl (Effexor Xr Cap*) 150 mg PO DAILY [facility] Warfarin Sodium (Coumadin Tab(*)) 2.5 mg PO SuTh@1700 RANDEE; Protocol Warfarin Sodium (Coumadin Tab(*)) 5 mg PO MoTuWeFrSa@1700 RANDEE; Protocol Vital Signs - 8 hr 05/10/19/18 10/19/18 03:34 05:59 08:00 Temperature 98.1 F Pulse Rate 61 Respiratory 16 16 16 Rate Blood Pressure 109/59 (mmHg) O2 Sat by Pulse 99 Oximetry 10/19/18 10/19/18 10/19/18 08:27 10:12 10:56 Temperature 97.6 F Pulse Rate 59 Respiratory 16 18 18 Rate Blood Pressure 97/52 (mmHg) O2 Sat by Pulse 100 Oximetry Oxygen Devices in Use Now: None Appearance: Middle-aged male sitting in chair in NAD Eyes: No Scleral Icterus Ears/Nose/Mouth/Throat: Mucous Membranes Moist Neck: NL Appearance and Movements; NL JVP, Trachea Midline Respiratory: Symmetrical Chest Expansion and Respiratory Effort, Clear to Auscultation Cardiovascular: NL Sounds; No Murmurs; No JVD, RRR Abdominal: NL Sounds; No Tenderness; No Distention Extremities: No Edema, - - Surgical cast in place LLE Skin: No Rash or Ulcers Neurological: Alert and Oriented x 3 Lines/Tubes/Other Access: Clean, Dry and Intact Peripheral IV Nutrition: Taking PO's Result Diagrams: 10/18/18 14:08 10/18/18 14:08 Assess/Plan/Problems-Billing Assessment: Mr. Castro is a 58 yo M with PMH of HTN, HLD, Buerger's disease with resulting DVT s/p multiple bypasses, neuropathy, and recent total left ankle ligament repair on 10/13/[address] Colon; who presented to the ED with c/o difficulty ambulating and multiple falls at home. - Patient Problems (1) Inability to ambulate due to left ankle or foot Code(s): R26.2 - DIFFICULTY IN WALKING, NOT ELSEWHERE CLASSIFIED Comment: - S/p left ankle ligament repair on 10/13/[address] Colon - Reported to have 4 falls in a 24hr period prior to admission; not sure if he hit his head; was not able to obtain a scooter as recommended and was unsuccessful with a walker - Left ankle and foot xray unremarkable for fracture - CT brain unremarkable for hemorrhage - Appreciate Ortho consult - PT/OT evals; NWB LLE per d/c summary from prior visit - Will need CRISELDA as returning home is not a safe discharge - Continue Percocet (2) History of DVT (deep vein thrombosis) Code(s): Z86.718 - PERSONAL HISTORY OF OTHER VENOUS THROMBOSIS AND EMBOLISM Comment: - There was some confusion regarding Lovenox dosing; he was on 80mg BID preop and stopped the day before surgery as instructed; at d/c he was placed on only 40mg daily and instructed to resume Coumadin; he has been taking 40mg daily but did not resume Coumadin - Spoke with PCP office to confirm usual Coumadin dosing; he has been on Coumadin since 2002 so is stable on that dosing - Lovenox 80mg BID bridging to Coumadin (goal INR 2.5-3.5) (3) Buerger's disease Code(s): I73.1 - THROMBOANGIITIS OBLITERANS [BUERGER'S DISEASE] Comment: - LLE only, s/p femoral, iliac, popliteal stenting and bypasses - Continue Pletal, Plavix (4) Hypertension Code(s): I10 - ESSENTIAL (PRIMARY) HYPERTENSION Comment: - Borderline soft pressures, SBP 90-120s - Continue lisinopril (5) Hyperlipidemia Code(s): E78.5 - HYPERLIPIDEMIA, UNSPECIFIED Comment: - Continue atorvastatin (6) Anxiety and depression Code(s): F41.9 - ANXIETY DISORDER, UNSPECIFIED; F32.9 - MAJOR DEPRESSIVE DISORDER, SINGLE EPISODE, UNSPECIFIED Comment: - Continue venlafaxine, bupropion, Xanax (7) DVT prophylaxis Code(s): Z29.9 - ENCOUNTER FOR PROPHYLACTIC MEASURES, UNSPECIFIED Comment: - Lovenox bridging to Coumadin (goal INR 2.5-3.5) (8) Full code status Code(s): Z78.9 - OTHER SPECIFIED HEALTH STATUS Comment: Status and Disposition: Inpatient. Anticipate d/c to [facility] when a bed offer is obtained as he is medically stable. Attending: Sami Bautista
[2018-10-19] MEDS ORDERED: Warfarin TAB(*) 5 MG PO SCH (17:00)
[2018-10-19] MEDS: Enoxaparin(*) 80 MG/0.8 ML SYR SUBCUT SCH (21:20)
[2018-10-20] MEDS: ALPRAZolam TAB* 0.5 MG PO PRN ×2 (02:11→08:54)
[2018-10-20] MEDS: oxyCODONE/Acetamin 5/325 MG* TAB PO PRN ×2 (02:12→07:22)
[2018-10-20] MEDS: traZODone TAB* 50 MG TAB PO PRN (02:12)
[2018-10-20 04:55] LABS: ABS Eosinophils 0.3 10^3/ul (0-0.6); ABS Lymphocytes 1.6 10^3/ul (1.0-4.8); ABS Monocytes 0.4 10^3/ul (0-0.8); ABS Neutrophils 2.6 10^3/ul (1.5-7.7); Eosinophil % 5.4 %; Hematocrit 36 % (42-52); Hemoglobin 12.4 g/dL (14.0-18.0); Lymphocyte % 32.2 %; Mean Corpuscular HGB Conc 35 g/dL (31-36); Mean Corpuscular Hemoglobin 34 pg (27-31); Mean Corpuscular Volume 99 fL (80-94); Mean Platelet Volume 7.1 fL (7.4-10.4); Nucleated Red Blood Cells % 0.1; Platelet Count 408 10^3/uL (150-450); Red Blood Count 3.61 10^6 /uL (4.18-5.48); Red Cell Distribution Width 15 % (10.5-15); White Blood Count 4.9 10^3/uL (3.5-10.8)
[2018-10-20 05:01] LABS: INR 1.24 (0.82-1.09)
[2018-10-20 05:12] LABS: Calcium 8.5 mg/dL (8.6-10.3); Potassium 4.1 mmol/L (3.5-5.0)
[2018-10-20 05:18] LABS: BUN/Creatinine Ratio 16.5 (8-20); EGFR African American 84.1 (>60); EGFR Non-African American 69.5 (>60)
[2018-10-20] MEDS: Lisinopril TAB* 10 MG PO SCH (08:53)
[2018-10-20] MEDS: Cilostazol TAB* 100 MG PO SCH (08:53)
[2018-10-20] MEDS: Clopidogrel TAB* 75 MG PO SCH (08:53)
[2018-10-20] MEDS: Venlafaxine EXT RELEASE CAP* 75 MG PO SCH (08:53)
[2018-10-20] MEDS: Enoxaparin(*) 80 MG/0.8 ML SYR SUBCUT SCH (08:54)
[2018-10-20] MEDS: Atorvastatin* 40 MG TAB PO SCH (08:54)
[2018-10-20] MEDS: buPROPion SR TAB.SR* 150 MG PO SCH (08:54)
--- NOTE | 2018-10-20 11:05 | DS ---
CC: Dr. Frank Hardy; Dr. Bala Colon* DISCHARGE SUMMARY: DATE OF ADMISSION: 10/18/18 DATE OF DISCHARGE: 10/20/18 PRIMARY CARE PROVIDER: Dr. Frank Hardy. ORTHOPEDIC SURGEON: Dr. Bala Colon. ATTENDING PHYSICIAN: Dr. Sami Bautista* (dictated by Ana Foster NP). PRIMARY DIAGNOSES: 1. Inability to ambulate due to nonweightbearing status, left lower extremity, status post ligament repair on 10/13/18. 2. Falls. SECONDARY DIAGNOSES: 1. History of deep vein thrombosis. 2. Buerger's disease. 3. Hypertension. 4. Hyperlipidemia. 5. Anxiety. 6. Depression. STUDIES WHILE IN THE HOSPITAL: 1. EKG on 10/18/18 shows normal sinus rhythm with PACs and PVCs and a rate of 75, QTc 415, no ischemic changes. 2. Left hip pelvis x-ray on 10/18/18 reads as degenerative changes of the left hip. Pelvic ring is intact. 3. Brain CT on 10/19/18 reads as no evidence of intracranial mass or hemorrhage. 4. Left ankle x-ray on 10/19/18 reads as limited radiographic exam of the left ankle and foot secondary to the overlying splint cast without suspicious abnormality. 5. Left foot x-ray on 10/19/18 reads as limited radiographic exam of the left ankle and foot secondary to the overlying splint cast without suspicious abnormality. CONSULTATIONS WHILE IN THE HOSPITAL: SHIVAM Cardenas from Orthopedics, . HISTORY OF PRESENT ILLNESS AND HOSPITAL COURSE: Mr. Castro is a 58-year-old male with past medical history of hypertension, hyperlipidemia, Buerger's disease with resulting DVT, status post multiple stents and bypasses, neuropathy , and recent left ankle ligament repair on 10/13/[address] Colon, who presented to the emergency room on 10/18/18 with complaints of left ankle pain and difficulty with ambulation. Please see the history and physical by SHIVAM Villar for complete summary of the events leading up to this hospitalization. In short, the patient underwent a left ankle ligament repair on 10/13/[address] Colon and was discharged from this facility on . He was instructed to use a scooter or walker at home though ultimately the patient reports that because most of his home is carpeted he had significant difficulty using a walker and therefore had multiple falls. He reported 3 falls in 3 days after surgery and then 5 falls within 24 hours of presenting to the emergency room. He denied any head injuries. In the emergency room, he had imaging as noted above and labs, which were mostly unremarkable except for a mild anemia consistent with his baseline and mildly elevated potassium at 5.1 and an elevated CRP at 67. Vital signs were stable. He was admitted by the hospitalist service longterm care to find mcc placement. The following day, the patient was evaluated by Physical Therapy, who noted that he would benefit from short-term rehab. He was also evaluated by Occupational Therapy, who felt as though he would benefit from rehabilitation. The patient was seen by SHIVAM Cardenas from Orthopedics, who ultimately had no acute concerns. She noted that the patient should remain nonweightbearing in the left lower extremity and said that he may ambulate with a knee scooter if he was able to obtain one. When I saw the patient on 10/19/18, the patient did report to me that he was unsure of he hit his head during any of his falls and so a brain CT was done as he has been on anticoagulation. There were no bleeds noted. I will note that there was some confusion regarding dosing of the patient's Lovenox. He had been on 80 mg b.i.d. of therapeutic Lovenox preoperatively and stopped that the day prior to surgery as instructed. At discharge here from the hospital on 10/14/18, he was discharged on only 40 mg daily of Lovenox and instructed to resume his Coumadin. He had been taking the 40 mg daily but did not resume his Coumadin because those instructions were not clear to him. The patient has been on Coumadin since 2002 due to a history of DVT and he does have a goal INR of 2.5 to 3.5 due to the presence of left lower extremity . As of today, the patient's INR remains subtherapeutic at 1.24. The patient has been offered a bed for rehab at [facility] and has accepted. Mr. Castro is stable for discharge today. Vital signs are as follows: Temp 98.8, heart rate 81, respiratory rate 16, oxygen saturation 99% on room air, blood pressure 107/72. DISCHARGE MEDICATIONS: New Medications: Oxycodone/acetaminophen 5/325 mg 1 tab p.o. q.4 hours p.r.n. pain, max daily dose of 6 tabs. Changed Medications: Enoxaparin 80 mg subcu q.12 hours (previously was 40 mg daily). Continued Home Medications: 1. Alprazolam 1 mg p.o. 4 times a day p.r.n. anxiety. 2. Atorvastatin 40 mg p.o. daily. 3. Bupropion 150 mg p.o. b.i.d. 4. Pletal 100 mg p.o. b.i.d. 5. Plavix 75 mg p.o. daily. 6. Lisinopril 20 mg p.o. daily. 7. Venlafaxine 150 mg p.o. daily. 8. Coumadin 2.5 mg p.o. Wednesday and . 9. Coumadin 5 mg p.o. Wednesday, Wednesday, Wednesday, Wednesday, Wednesday. 10. Acetaminophen 650 mg p.o. q.4 hours p.r.n. pain. 11. Diclofenac 1% gel 1 application topically t.i.d. p.r.n. pain. 12. Trazodone 50 to 100 mg p.o. at bedtime. DISCHARGE PLAN: Mr. Castro will be discharged to subacute rehab at [facility]. Activity will be nonweightbearing on the left lower extremity, otherwise as tolerated. Diet will be heart healthy. Medications are noted above. The patient can take Percocet for pain. As noted above, he should be on 80 mg every 12 hours of Lovenox for therapeutic dosing bridging to Coumadin. He can resume his usual Coumadin dosing as he has been on Coumadin for quite some time and has been stable on that dosing, so he should continue this daily until he has reached a goal INR of 2.5 to 3.5. He can continue his other usual medications when I have not made any further changes. The patient will need to follow up with a provider at [facility] and should follow up with his primary care provider after discharge from rehab. He has been instructed to return to the emergency room or nearest hospital for any worsening of symptoms, shortness of breath, lightheadedness, dizziness, chest discomfort, high fevers, chills, night sweats, loss of consciousness, or any other worrisome signs or symptoms. DISCHARGE CONDITION: Stable. DISCHARGE DISPOSITION: [facility] Facility, [facility]. This is a summarized report of a complex medical history and hospital stay. For further details, please see the entire medical record. TIME SPENT: Approximately 45 minutes was spent on this discharge. ANA FOSTER, COMMUNITY ASSISTANT [id number]/CPS #: [id number] DANIELA
[2018-10-20 12:26] VITALS: BP 130/74
[2018-10-20] MEDS ORDERED: Warfarin TAB(*) 2.5 MG PO SCH (17:00)
== END 2018-10-20 12:20 ==
LOC: ED 12:53 → SSU 16:04
PROVIDERS: ADMIT Internal Medicine; ATTEND Internal Medicine
DX: R26.2 Difficulty in walking, not elsewhere classified (principal); Z98.890 Other specified postprocedural states; Z86.718 Personal history of other venous thrombosis and embolism; Z91.81 History of falling; I73.1 Thromboangiitis obliterans [Buerger's disease]; I10 Essential (primary) hypertension; E78.5 Hyperlipidemia, unspecified; F41.9 Anxiety disorder, unspecified; F32.9 Major depressive disorder, single episode, unspecified; Z79.01 Long term (current) use of anticoagulants; Z88.6 Allergy status to analgesic agent; Z87.891 Personal history of nicotine dependence; R21 Rash and other nonspecific skin eruption
CPT/HCPCS: 36415; 70450; 80048; 80053; 85025; 85610; 86140; 93005; 96365; 96372; 99284; A9270-GY; G0378; G8978-GP-CJ; G8979-GP-CI; G8987-GO-CJ; G8988-GO-CI; J1650; J1885

== ENCOUNTER 2018-10-26 15:28 | Emergency (ER) | payer MEDICARE, MEDICAID ==
[2018-10-26 16:16] LABS: ABS Basophils 0.1 10^3/ul (0-0.2); ABS Eosinophils 0.2 10^3/ul (0-0.6); ABS Lymphocytes 1.2 10^3/ul (1.0-4.8); ABS Monocytes 0.6 10^3/ul (0-0.8); ABS Neutrophils 7.4 10^3/ul (1.5-7.7); Eosinophil % 2.5 %; Hematocrit 41 % (42-52); Lymphocyte % 12.2 %; Mean Corpuscular HGB Conc 34 g/dL (31-36); Mean Corpuscular Hemoglobin 34 pg (27-31); Mean Corpuscular Volume 100 fL (80-94); Mean Platelet Volume 7.6 fL (7.4-10.4); Nucleated Red Blood Cells % 0.1; Platelet Count 828 10^3/uL (150-450); Red Cell Distribution Width 15 % (10.5-15); White Blood Count 9.5 10^3/uL (3.5-10.8)
--- NOTE | 2018-10-26 16:30 | ED ---
Psychiatric Complaint - HPI Summary HPI Summary: Pt is a 58 y/o M presenting to the ED brought in by EMS for a psychiatric complaint. The pt is from [facility] and states that he saw 17 guys threatening him with knives and guns, so he called the police. He denies SI/HI, CP, SOB, fever, alcohol use, smoking or drug use, or prior psychiatric issues. He notes L ankle surgery 16 days ago. - History Of Current Complaint Chief Complaint: EDPsychosocial Time Seen by Provider: 10/26/18 15:47 Hx Obtained From: Patient Onset/Duration: Sudden Onset, Lasting Hours, Still Present Timing: Hours Severity Initially: Moderate Severity Currently: Moderate Character: Anxious Aggravating Factor(s): Nothing Alleviating Factor(s): Nothing Associated Signs And Symptoms: Positive: Hallucinating, Paranoid Behavior Related History: Negative For: Prior Psychiatric Issues Has Suicidal: Denies: Thoughts Has Homicidal: Denies: Thoughts - Allergies/Home Medications Allergies/Adverse Reactions: Allergies Allergy/AdvReac Type Severity Reaction Status Date / Time aspirin Allergy Intermediate Hives Verified 10/18/18 13:09 Adhesive Tape Allergy Tears skin Verified 10/18/18 13:09 off latex Allergy Rash Verified 10/18/18 13:09 PMH/Surg Hx/FS Hx/Imm Hx Previously Healthy: No Endocrine/Hematology History: Reports: Hx Anticoagulant Therapy - coumadin Denies: Hx Diabetes, Hx Thyroid Disease Cardiovascular History: Reports: Hx Deep Vein Thrombosis - three bypasses, Hx Hypercholesterolemia, Hx Hypertension, Hx Peripheral Vascular Disease - 3 bypass /stents to the left leg-fem iliac/fem pop-left toe amputation, Other Cardiovascular Problems/Disorders - Hyperlipidemia Respiratory History: Denies: Hx Asthma, Hx Chronic Obstructive Pulmonary Disease (COPD), Other Respiratory Problems/Disorders GI History: Denies: Hx Ulcer, Other GI Disorders History: Denies: Other Problems/Disorders Musculoskeletal History: Reports: Hx Arthritis, Hx Back Problems, Hx Tendonitis - Peroneal tendinitis, left leg, Other Musculoskeletal History - Left chronic ankle instability-joint derangement Sensory History: Reports: Hx Contacts or Glasses, Hx Hearing Aid Opthamlomology History: Reports: Hx Contacts or Glasses Neurological History: Reports: Hx Nerve Disease - peripheral neuropathy Denies: Other Neuro Impairments/Disorders Psychiatric History: Reports: Hx Anxiety, Hx Depression Denies: Hx Suicide Attempt, Hx Substance Abuse - Surgical History Surgery Procedure, Year, and Place: 3 Bypasses, Femoral, Popliteal, [place], 4 Stents Left Leg [facility]. Rotator cuff repair 2014 [facility]. Nasal Septoplasty 1999 [facility]. Left 3rd toe amputation. Left ankle-ligament repairs 09/2018 Hx Anesthesia Reactions: No Infectious Disease History: No Infectious Disease History: Denies: Hx Hepatitis, Hx Human Immunodeficiency Virus (HIV), Traveled Outside the [place] in Last 30 Days - Family History Known Family History: Negative: Cardiac Disease, Hypertension - Social History Lives: Assisted Living Alcohol Use: Occasionally Hx Substance Use: No Substance Use Type: Reports: None Hx Tobacco Use: Yes Smoking Status (MU): Former Smoker Type: Cigarettes Amount Used/How Often: 1-2 PPD for 22 years Review of Systems Negative: Fever Negative: Chest Pain Negative: Shortness Of Breath Psychological: Other - denies SI/HI Positive: Other - paranoid All Other Systems Reviewed And Are Negative: Yes Physical Exam - Summary Physical Exam Summary: Appearance: Well appearing, no pain distress, anxious affect Skin: warm, dry, reflects adequate perfusion Head/face: normal Eyes: EOMI, YARY ENT: normal Neck: supple, non-tender Respiratory: CTA, breath sounds present Cardiovascular: RRR, pulses symmetrical Abdomen: non-tender, soft Musculoskeletal: L ankle has a splint on it, strength/ROM intact Neuro: normal, sensory motor intact, A&Ox3 Triage Information Reviewed: Yes Vital Signs On Initial Exam: Initial Vitals Temp Pulse Resp BP Pulse Ox 97.8 F 97 18 138/75 96 10/26/18 15:35 10/26/18 15:35 10/26/18 15:35 10/26/18 15:35 10/26/18 15:35 Vital Signs Reviewed: Yes Diagnostics - Vital Signs Vital Signs Temp Pulse Resp BP Pulse Ox 10/26/18 15:35 97.8 F 97 18 138/75 96 - Laboratory Lab Results: Lab Results 10/26/18 Range/Units 15:57 WBC 9.5 (3.5-10.8) 10^3/uL RBC 4.10 L (4.18-5.48) 10^6 /uL Hgb 14.0 (14.0-18.0) g/dL Hct 41 L (42-52) % MCV 100 H (80-94) fL MCH 34 H (27-31) pg MCHC 34 (31-36) g/dL RDW 15 (10.5-15) % Plt Count 828 H D (150-450) 10^3/uL MPV 7.6 (7.4-10.4) fL Neut % (Auto) 78.5 % Lymph % (Auto) 12.2 % Rhea % (Auto) 6.1 % Eos % (Auto) 2.5 % Baso % (Auto) 0.7 % Absolute Neuts (auto) 7.4 (1.5-7.7) 10^3/ul Absolute Lymphs (auto) 1.2 (1.0-4.8) 10^3/ul Absolute Monos (auto) 0.6 (0-0.8) 10^3/ul Absolute Eos (auto) 0.2 (0-0.6) 10^3/ul Absolute Basos (auto) 0.1 (0-0.2) 10^3/ul Absolute Nucleated RBC 0.0 10^3/ul Nucleated RBC % 0.1 Result Diagrams: 10/26/18 15:57 10/26/18 15:57 Lab Statement: Any lab studies that have been ordered have been reviewed, and results considered in the medical decision making process. Course/Dx - Course Course Of Treatment: Pt is a 58 y/o M presenting to the ED brought in by EMS for a psychiatric complaint. The pt is from [facility] and states that he saw 17 guys threatening him with knives and guns, so he called the police. He denies CP, SOB, fever, alcohol use, smoking or drug use, or prior psychiatric issues. The pt will be d/c'ed with dx including drug withdrawal symptoms and depression. He is stable and agreeable with this plan. - Differential Dx/Clinical Impression Differential Diagnosis/HQI/PQRI: Positive: Depression Provider Diagnosis: Symptom of drug withdrawal, Depression Discharge - Sign-Out/Discharge Documenting (check all that apply): Patient Departure Patient Received Moderate/Deep Sedation with Procedure: No - Discharge Plan Condition: Stable Disposition: HOME Referrals: Frank Hardy MD [Primary Care Provider] - As Soon As Possible (Schedule an appointment with your PCP to discuss your current medications and how they might be interacting at this time.) - Billing Disposition and Condition Condition: STABLE Disposition: Home - Attestation Statements Document Initiated by Deniaibe: Yes Documenting Scribe: Jessy Link Provider For Whom Bree is Documenting (Include Credential): Jd Humphries MD. Scribe Attestation: Jessy Trinidad, scribed for Jd Humphries MD. on 10/26/18 at 2148. Scribe Documentation Reviewed: Yes Provider Attestation: The documentation as recorded by the deniaibe, Jessy Link accurately reflects the service I personally performed and the decisions made by , Jd Humphries MD. Status of Scribe Document: Viewed
[2018-10-26 16:33] LABS: ALT 21 U/L (7-52); AST 23 U/L (13-39); Albumin 4.2 g/dL (3.2-5.2); Albumin/Globulin Ratio 1.6 (1-3); Alkaline Phosphatase 132 U/L (34-104); Anion Gap 8 mmol/L (2-11); BUN/Creatinine Ratio 21.3 (8-20); Blood Urea Nitrogen 23 mg/dL (6-24); CO2 Carbon Dioxide 23 mmol/L (22-32); Calcium 9.2 mg/dL (8.6-10.3); Chloride 104 mmol/L (101-111); EGFR Non-African American 70.2 (>60); Globulin 2.6 g/dL (2-4); Glucose 105 mg/dL (70-100); Potassium 4.9 mmol/L (3.5-5.0); Sodium 135 mmol/L (135-145); Total Protein 6.8 g/dL (6.4-8.9)
[2018-10-26 16:40] LABS: Acetaminophen < 15 mcg/mL; Alcohol < 10 mg/dL (<10); Salicylate < 2.50 mg/dL (<30)
[2018-10-26 16:54] LABS: TSH (Thyroid Stimulating Horm) 0.71 mcIU/mL (0.34-5.60)
[2018-10-26 17:13] LABS: Urine Appearance Cloudy; Urine Bilirubin Negative (Negative); Urine Blood Negative (Negative); Urine Color Yellow; Urine Glucose Negative (Negative); Urine Ketones 1+ (Negative); Urine Nitrite Negative (Negative); Urine Protein Negative (Negative); Urine Specific Gravity 1.019 (1.010-1.030); Urine Urobilinogen Negative (Negative)
[2018-10-26 17:24] LABS: Urine Benzodiazepine Screen Presumptive Positive (None Detect); Urine Opiates Screen None Detected (None Detect)
[2018-10-26 22:13] VITALS: BP 168/91
== END 2018-10-26 22:12 | disposition home or self-care (01) ==
LOC: ED 15:28
DX: F19.939 Other psychoactive substance use, unspecified with withdrawal, unspecified (principal); F32.9 Major depressive disorder, single episode, unspecified; I10 Essential (primary) hypertension; I73.9 Peripheral vascular disease, unspecified; E78.5 Hyperlipidemia, unspecified; M19.90 Unspecified osteoarthritis, unspecified site; E78.00 Pure hypercholesterolemia, unspecified; F41.9 Anxiety disorder, unspecified; Z88.6 Allergy status to analgesic agent; Z91.040 Latex allergy status; Z79.01 Long term (current) use of anticoagulants; Z86.718 Personal history of other venous thrombosis and embolism; Z87.891 Personal history of nicotine dependence
CPT/HCPCS: 36415; 80053; 80307; 80320; 80329; 81003; 84443; 85025; 99284; G0480

== ENCOUNTER 2018-10-27 09:58 | Inpatient (IN) | payer MEDICARE, MEDICAID ==
--- NOTE | 2018-10-27 10:25 | ED ---
Complex/Multi-Sys Presentation - HPI Summary HPI Summary: 58 year old M brought in by ambulance from [facility] to [facility] with a chief complaint of altered mental status since this morning. Symptoms aggravated by nothing. Symptoms alleviated by nothing. Patient was seen ED yesterday and discharged to [facility] yesterday. Per [facility] staff, patient has been increasingly confused and anxious. LEVEL 5 CAVEAT: HPI is limited due to altered mental status. - History Of Current Complaint Chief Complaint: EDAltMentalStatus Time Seen by Provider: 10/27/18 10:12 Hx Obtained From: Other: - [facility] staff Onset/Duration: Lasting Hours, Still Present Timing: Constant Aggravating Factor(s): Nothing Alleviating Factor(s): Nothing Associated Signs And Symptoms: Positive: Other - increasing confusion and anxiety - Allergies/Home Medications Allergies/Adverse Reactions: Allergies Allergy/AdvReac Type Severity Reaction Status Date / Time aspirin Allergy Intermediate Hives Verified 10/27/18 10:08 Adhesive Tape Allergy Tears skin Verified 10/27/18 10:08 off latex Allergy Rash Verified 10/27/18 10:08 Home Medications: Home Medications Warfarin TAB(*) [Coumadin TAB(*)] 3.5 mg PO DAILY 10/27/18 [History Confirmed ] PMH/Surg Hx/FS Hx/Imm Hx Previously Healthy: No Endocrine/Hematology History: Reports: Hx Anticoagulant Therapy - coumadin Denies: Hx Diabetes, Hx Thyroid Disease Cardiovascular History: Reports: Hx Deep Vein Thrombosis - three bypasses, Hx Hypercholesterolemia, Hx Hypertension, Hx Peripheral Vascular Disease - 3 bypass /stents to the left leg-fem iliac/fem pop-left toe amputation, Other Cardiovascular Problems/Disorders - Hyperlipidemia Respiratory History: Denies: Hx Asthma, Hx Chronic Obstructive Pulmonary Disease (COPD), Other Respiratory Problems/Disorders GI History: Denies: Hx Ulcer, Other GI Disorders History: Denies: Other Problems/Disorders Musculoskeletal History: Reports: Hx Arthritis, Hx Back Problems, Hx Tendonitis - Peroneal tendinitis, left leg, Other Musculoskeletal History - Left chronic ankle instability-joint derangement Sensory History: Reports: Hx Contacts or Glasses, Hx Hearing Aid Opthamlomology History: Reports: Hx Contacts or Glasses Neurological History: Reports: Hx Nerve Disease - peripheral neuropathy Denies: Other Neuro Impairments/Disorders Psychiatric History: Reports: Hx Anxiety, Hx Depression Denies: Hx Eating Disorder, Hx Suicide Attempt, Hx of Violent Episodes Against Others, Hx Substance Abuse - Surgical History Surgery Procedure, Year, and Place: 3 Bypasses, Femoral, Popliteal, [place], 4 Stents Left Leg [facility]. Rotator cuff repair 2014 [facility]. Nasal Septoplasty 1999 [facility]. Left 3rd toe amputation. Left ankle-ligament repairs 09/2018 Hx Anesthesia Reactions: No Infectious Disease History: No Infectious Disease History: Denies: Hx Hepatitis, Hx Human Immunodeficiency Virus (HIV), Traveled Outside the [place] in Last 30 Days - Family History Known Family History: Negative: Cardiac Disease, Hypertension - Social History Alcohol Use: Occasionally Hx Substance Use: No Substance Use Type: Reports: None Hx Tobacco Use: Yes Smoking Status (MU): Former Smoker Type: Cigarettes Amount Used/How Often: 1-2 PPD for 22 years Review of Systems Neurological: Other - altered mental status, increasing confusion Positive: Other - increasing anxiety All Other Systems Reviewed And Are Negative: Yes Physical Exam - Summary Physical Exam Summary: VITAL SIGNS: Reviewed. GENERAL: Patient is a well-developed and nourished MALE who is lying comfortable in the stretcher. Patient is not in any acute respiratory distress. HEAD AND FACE: No signs of trauma. No ecchymosis, hematomas or skull depressions. No sinus tenderness. EYES: PERRLA, EOMI x 2, No injected conjunctiva, no nystagmus. EARS: Hearing grossly intact. Ear canals and tympanic membranes are within normal limits. MOUTH: Oropharynx within normal limits. NECK: Supple, trachea is midline, no adenopathy, no JVD, no carotid bruit, no c- spine tenderness, neck with full ROM. CHEST: Symmetric, no tenderness at palpation LUNGS: Clear to auscultation bilaterally. No wheezing or crackles. CVS: Regular rate and rhythm, S1 and S2 present, no murmurs or gallops appreciated. ABDOMEN: Soft, non-tender. No signs of distention. No rebound no guarding, and no masses palpated. Bowel sounds are normal. EXTREMITIES: FROM in all major joints, no edema, no cyanosis or clubbing. NEURO: Alert and oriented x 3. No acute neurological deficits. Speech is normal and follows commands. SKIN: Dry and warm. GCS: 15 Triage Information Reviewed: Yes Vital Signs On Initial Exam: Initial Vitals Temp Pulse Resp BP Pulse Ox 99.1 F 95 14 159/90 93 10/27/18 09:59 10/27/18 09:59 10/27/18 09:59 10/27/18 09:59 10/27/18 09:59 Vital Signs Reviewed: Yes Diagnostics - Vital Signs Vital Signs Temp Pulse Resp BP Pulse Ox 10/27/18 09:59 99.1 F 95 14 159/90 93 - Laboratory Result Diagrams: 10/27/18 10:59 10/27/18 10:59 Lab Statement: Any lab studies that have been ordered have been reviewed, and results considered in the medical decision making process. - Radiology CXR Radiology Interpretation Completed By: Radiologist Summary of Radiographic Findings: NO ACTIVE CARDIOPULMONARY DISEASE IS NOTED. ED physician has reviewed this report. - CT Brain CT Interpretation Completed By: Radiologist Summary of CT Findings: NO ACUTE INTRACRANIAL PATHOLOGY. ED physician has reviewed this report. - EKG 1028 Cardiac Rate: NL - 95 BPM EKG Rhythm: Sinus Rhythm Summary of EKG Findings: No ST elevations Complex Multi-Symp Course/Dx Assessment/Plan: 58 year old M brought in by ambulance from [facility] to [facility] with a chief complaint of altered mental status since this morning. Symptoms aggravated by nothing. Symptoms alleviated by nothing. Patient was seen ED yesterday and discharged to [facility] yesterday. Per [facility] staff, patient has been increasingly confused and anxious. Unable to obtain any history from the patient due to confusion. The patient is alert but not oriented. In the EMS report, EMS state that patient was hallucinating this morning and was aggressive towards the staff members at the snf. He has a left posterior cast in the lower extremity secondary to status post ankle/ foot ligament repair on 10/13/18. Blood test results without any significant abnormality except for an INR of 2.75. Head CT impression: No acute interconnected pathology. Chest x-ray impression: No active cardiopulmonary disease. In the ED course, the patient continues to have altered mental status. The patient doesnt have any fever, doesnt have any headache, doesnt have any neck stiffness so at this point, I do not believe that the patient needs an LP. At this point, because of the patients symptoms, I discussed my physical exam and findings with Dr. Cai from the hospital services who accepted the patient for admission. The patient is alert but not oriented. - Diagnoses Provider Diagnoses: Altered mental status - Physician Notifications Discussed Care Of Patient With: Maribel Cai Time Discussed With Above Provider: 12:22 Instructed by Provider To: Other - Dr. Cai, hospitalist, agrees to admit patient Discharge - Sign-Out/Discharge Documenting (check all that apply): Patient Departure - Admit Patient Received Moderate/Deep Sedation with Procedure: No - Discharge Plan Condition: Stable Disposition: ADMITTED TO [facility] - Billing Disposition and Condition Condition: STABLE Disposition: Admitted to [facility] - Attestation Statements Document Initiated by Scribe: Yes Documenting Scribe: Sho Manning Provider For Whom Scribe is Documenting (Include Credential): Jacky Cherry MD Scribe Attestation: Sho Trinidad, scribed for Jacky Cherry MD on 10/27/18 at 1849. Scribe Documentation Reviewed: Yes Provider Attestation: The documentation as recorded by the Sho naylor accurately reflects the service I personally performed and the decisions made by Jacky north MD Status of Scribe Document: Viewed
[2018-10-27 11:11] LABS: ABS Basophils 0.1 10^3/ul (0-0.2); ABS Eosinophils 0.1 10^3/ul (0-0.6); ABS Lymphocytes 1.3 10^3/ul (1.0-4.8); ABS Monocytes 0.6 10^3/ul (0-0.8); Eosinophil % 0.8 %; Hematocrit 42 % (42-52); Hemoglobin 14.7 g/dL (14.0-18.0); Lymphocyte % 14.7 %; Mean Corpuscular HGB Conc 35 g/dL (31-36); Mean Corpuscular Hemoglobin 35 pg (27-31); Mean Corpuscular Volume 100 fL (80-94); Mean Platelet Volume 7.2 fL (7.4-10.4); Platelet Count 999 10^3/uL (150-450); Red Blood Count 4.23 10^6 /uL (4.18-5.48); Red Cell Distribution Width 15 % (10.5-15); White Blood Count 9.1 10^3/uL (3.5-10.8)
[2018-10-27 11:22] LABS: INR 2.75 (0.82-1.09)
[2018-10-27 11:58] LABS: Acetaminophen < 15 mcg/mL; Alcohol < 10 mg/dL (<10); Salicylate < 2.50 mg/dL (<30)
[2018-10-27 11:59] LABS: ALT 22 U/L (7-52); AST 26 U/L (13-39); Albumin 4.3 g/dL (3.2-5.2); Albumin/Globulin Ratio 1.7 (1-3); Alkaline Phosphatase 134 U/L (34-104); Anion Gap 10 mmol/L (2-11); BUN/Creatinine Ratio 19.5 (8-20); Blood Urea Nitrogen 24 mg/dL (6-24); CO2 Carbon Dioxide 21 mmol/L (22-32); Calcium 9.4 mg/dL (8.6-10.3); Chloride 106 mmol/L (101-111); Creatine Kinase 302 U/L (10-223); EGFR African American 73.1 (>60); EGFR Non-African American 60.4 (>60); Globulin 2.6 g/dL (2-4); Glucose 106 mg/dL (70-100); Potassium 4.7 mmol/L (3.5-5.0); Sodium 137 mmol/L (135-145); Total Protein 6.9 g/dL (6.4-8.9)
[2018-10-27 12:10] LABS: TSH (Thyroid Stimulating Horm) 0.67 mcIU/mL (0.34-5.60)
[2018-10-27 12:24] LABS: Urine Appearance Cloudy; Urine Bilirubin Negative (Negative); Urine Blood Negative (Negative); Urine Color Amber; Urine Glucose Negative (Negative); Urine Ketones 1+ (Negative); Urine Nitrite Negative (Negative); Urine Protein Negative (Negative); Urine Specific Gravity 1.023 (1.010-1.030); Urine Urobilinogen Negative (Negative)
[2018-10-27 13:08] LABS: Urine Benzodiazepine Screen Presumptive Positive (None Detect); Urine Opiates Screen None Detected (None Detect)
[2018-10-27] MEDS ORDERED: oxyCODONE/Acetamin 5/325 MG* TAB PO PRN (15:52)
[2018-10-27] MEDS ORDERED: Acetaminophen TAB* 325 MG PO PRN (15:52)
[2018-10-27] MEDS ORDERED: Warfarin TAB(*) 2.5 MG PO SCH (17:00)
[2018-10-27] MEDS ORDERED: Warfarin TAB(*) 1 MG PO SCH (17:00)
[2018-10-27] MEDS: Cilostazol TAB* 100 MG PO SCH (21:12)
[2018-10-27] MEDS: Atorvastatin* 40 MG TAB PO SCH (21:12)
[2018-10-27] MEDS: buPROPion SR TAB.SR* 150 MG PO SCH (21:12)
[2018-10-27] MEDS: Venlafaxine EXT RELEASE CAP* 75 MG PO SCH (21:13)
[2018-10-27] MEDS: ALPRAZolam TAB* 0.5 MG PO PRN (22:11)
--- NOTE | 2018-10-28 00:29 | HP ---
CC: Dr. Hardy* HISTORY AND PHYSICAL: DATE OF ADMISSION: 10/27/18 PRIMARY CARE PROVIDER: Dr. Hardy. ATTENDING PHYSICIAN WHILE IN THE HOSPITAL: Dr. Maribel Cai* (dictated by Elayne Anna NP). CHIEF COMPLAINT: Altered mental status. HISTORY OF PRESENT ILLNESS: Mr. Castro is a 58-year-old male with past medical history significant for hypertension, Buerger's disease, history of DVT, hyperlipidemia, depression, anxiety, peripheral neuropathy with recent admission on 10/13/18, left ankle instability, peroneus brevis and longus tendon tear and peroneal tenosynovitis, who had lateral ligament reconstruction. The patient was subsequently discharged on 10/17/18. He was discharged after the operative procedure to home on the . He then returned on the and was admitted with left ankle pain and difficulty with ambulation after he he had 3 falls at his house. He then was discharged on to [place] where he has been residing for rehab. The patient was sent into the emergency room yesterday for altered mental status and increased anxiety and again, the patient was seen and evaluated in the emergency room. He was evaluated by staff, had a mental health evaluation and was discharged back home. He re-presented today again with increased anxiety and confusion and per social work, Cristy [place] is trying to get the patient into [facility] in [place]. During evaluation the patient reports that he was brought in by the inside b2b sales from [facility] to have a drug screen. He also in conversation of why he was here, when asked the year, he states Wednesday; when the asked the year again, he reports September 2018. The patient also is paranoid that he reports that he is concerned the diamonds are missing from his home. The patient is very difficult to stay focused on a topic and has difficulty answering questions, but does have periods of lucidity, and able to answer medical history correctly. While in the emergency room, the patient had routine lab work. He had a CT of the brain, which was within normal limits. Due to his increased confusion and anxiety, we were asked to see and evaluate him for admission. PAST MEDICAL HISTORY: Significant for hypertension, Buerger's disease, history of DVT on chronic anticoagulation, hyperlipidemia, depression, anxiety, peripheral neuropathy. PAST SURGICAL HISTORY: Ligament repair in the left ankle, history of iliac femoral popliteal bypass with stenting in the leg, toe amputation, rotator cuff repair. HOME MEDICATIONS: Include: 1. Effexor 150 mg daily, previous dose was Effexor 150 mg b.i.d. 2. Voltaren topical 1% t.i.d. p.r.n. 3. Wellbutrin SR 150 mg p.o. b.i.d. 4. Coumadin 3.5 mg daily. 5. Tylenol 650 mg q.4 hours as needed for pain. 6. Alprazolam 0.5 q.6 hours p.r.n., previous dose was 1 mg 4 times a day as needed. 7. Atorvastatin 40 mg p.o. daily. 8. Trazodone 50 mg at h.s. 9. Plavix 75 mg p.o. daily. 10. Lovenox 80 mg subcu b.i.d. 11. Lisinopril 20 mg p.o. daily. 12. Oxycodone 5/325 one tablet p.o. q.4 hours as needed for pain. ALLERGIES: ASPIRIN, ADHESIVE TAPE, and LATEX. FAMILY HISTORY: Mother with an SD, in 2012 at the age of 94. Mother with a history of diabetes. No reported history of cancer. SOCIAL HISTORY: The patient denies any tobacco. Reports occasional alcohol use. Denies any illicit drug use. He is currently residing at [facility]. Prior to that, he lived home alone in [place]. Surrogate decision maker in the event he is unable to make his own decisions is his sister, Alex, he is a full code. REVIEW OF SYSTEMS: He denies any fever, unintended weight loss, chest pain, edema, cough, hemoptysis, shortness of breath. No nausea, vomiting, diarrhea, abdominal pain, hematuria, or dysuria. Denies any focal weakness or sensory loss. Denies any visual complaints, dysphagia, arthralgias, myalgias, rashes, or lesions. He does report he has a surgical incision to the left ankle. He does report feeling anxious and depressed. PHYSICAL EXAMINATION GENERAL: At this time, Mr. Castro is a 58-year-old male. He is alert. He is oriented at times with periods of confusion and delusional thinking. He appears anxious. VITAL SIGNS: Blood pressure 169/77, heart rate 89, O2 saturation 96%, respirations are 14, temperature 98.5. HEENT: Head is atraumatic, normocephalic. Eyes: EOMs are intact. Sclerae anicteric and not pale. Oral mucosa appeared to be moist. NECK: Supple. LUNGS: Clear to auscultation bilaterally. No wheezes, rales, or rhonchi. CARDIAC: S1, S2. Regular rate and rhythm. No murmurs, rubs, or gallops. ABDOMEN: Soft and nontender. Bowel sounds are present x4. MUSCULOSKELETAL: He is able to move all 4 extremities. He does have a splint that is intact to his left lower leg. Sensation is intact to his left foot. NEUROLOGIC: He is awake, alert and oriented x3. Speech is clear. Thought process is intact. There are no gross focal deficits. SKIN: Splint was removed by Orthopedics. Left lateral incision is well approximated. There is no drainage. There is mild erythema. No swelling. Sutures were removed by Orthopedics and dressing was applied. DIAGNOSTIC STUDIES/LAB DATA: WBCs are 9.1, RBCs 4.23, hemoglobin 14.7, hematocrit was 42, MCV was 100, MCH was 35, platelet count was 999,000. INR was 2.75. Sodium 137, potassium 4.7, chloride 106, carbon dioxide was 21, anion gap was 10, BUN was 24, creatinine 1.23, glucose was 106, lactic acid 0.6 , calcium 9.4, magnesium 2.0. ASTs were 26, ALTs were 22, alkaline phosphatase was 134. Ammonia was 41. CK was 302. TSH was 0.67. Urine was within normal limits except for ketones were 1+. Urine toxicology was positive for amphetamines and benzodiazepines. Salicylates, acetaminophen, and alcohol were negative. He had a CT of the brain, radiologist's impression: No acute intracranial pathology. He had electrocardiogram, which showed sinus rhythm with a PVC at the rate of 95. He had a chest x-ray, radiologist's impression: No active cardiopulmonary disease. ASSESSMENT AND PLAN: Mr. Castro is a 58-year-old male, who presented to the emergency room with complaints of confusion and increased anxiety. We were asked to see and evaluate him for admission due to the confusion and anxiety and altered mental status. He will be admitted under observation for: 1. Altered mental status. I suspect this could be related to recent adjustments in his medication. He was previously taking 1 mg of Xanax 4 times a day and was adjusted to 0.5 mg daily. His Effexor was adjusted from 150 mg b.i.d. to 150 mg daily. These doses were confirmed with med list from his primary care doctor's office. I will restart his medications at the previous doses and continue to monitor his mental status. He does not appear to have any underlying source of infection. His left lateral ankle surgical incision scar is without signs or symptoms of infection. This was also assessed by Orthopedics and dressing was changed by Orthopedics today. I am going to hold his trazodone as this could be contributing to his delusional thinking as well. I will also consult Psychiatry for evaluation as the patient does appear to be delusional and does have difficulty focusing. If this patient's mental status does not improve, we can also consider consultation to Neurology to rule out encephalitis. I feel the more likely cause of his altered mentation is the recent change in his medication dosing. 2. Buerger's disease. We will continue on Coumadin as previously prescribed. 3. History of deep venous thrombosis: He will be placed on Coumadin 3.5 mg p.o. daily. I will repeat an INR daily. He was on bridging with Lovenox, which has been discontinued as his INR is therapeutic at 2.75. 4. Depression and anxiety. He will continue on Effexor 150 mg b.i.d. and Wellbutrin 150 b.i.d. as well as alprazolam 1 mg p.o. q.6 hours as needed. 5. Hypertension. He will continue on lisinopril 20 mg p.o. daily. 6. Hyperlipidemia. He will continue on atorvastatin 40 mg p.o. daily. 7. Thrombocytosis. Patient does have elevated platelet count of 999,000, suspect this could be acute phase reaction. Will continue to trend. If this does not improve could consider consultation to hematology. 8. FEN: He can have a heart healthy, decaf okay diet. 9. Code status: He is a full code. 10. DVT prophylaxis: We will continue his Coumadin. TIME SPENT: Time spent on this admission was approximately 60 minutes, greater than half that time was spent at the bedside reviewing events leading thus far to his hospitalization, performing my physical exam, and reviewing my plan of care. I have discussed this with my attending, Dr. Maribel Cai; she is in agreement with my plan. ELAYNE ANNA, RIGOBERTO [id number]/[facility] #: [id number] DANIELA
[2018-10-28] MEDS: Haloperidol INJ IV/IM* 5 MG/ML AMP IV PRN ×3 (01:15→09:10)
[2018-10-28] MEDS ORDERED: Lorazepam PYXIS KEY PRN (06:46)
[2018-10-28] MEDS ORDERED: LORazepam INJ* 2 MG/ML 1 ML VIAL IV PUSH ONE (06:47)
[2018-10-28] MEDS: ALPRAZolam TAB* 0.5 MG PO PRN (09:04)
[2018-10-28] MEDS: Clopidogrel TAB* 75 MG PO SCH (09:05)
[2018-10-28] MEDS: Venlafaxine EXT RELEASE CAP* 75 MG PO SCH (09:05)
[2018-10-28] MEDS: Lisinopril TAB* 10 MG PO SCH (09:05)
[2018-10-28] MEDS: buPROPion SR TAB.SR* 150 MG PO SCH (09:05)
[2018-10-28] MEDS: Cilostazol TAB* 100 MG PO SCH ×2 (09:05→21:18)
--- NOTE | 2018-10-28 09:48 | CONSULT ---
Consult Consult: Reason for consult: Altered mental status CC " [facility] " Mr. Castro is a 58-year-old male with past history significant for Depression and Anxiety, hypertension, Buerger's disease, history of DVT, hyperlipidemia, peripheral neuropathy and recent left lateral ligament surgery who recently admitted to this hospital and was discharged on 10/20/18 to [facility] For physical rehab. At that time he presented lucid without cognitive impairment. Over the last 2 days staff at [facility] noticed increasing confusion and behavioral changes such as running around naked and talking about things that did not make sense. Staff at [facility] reported that they did not have knowledge of recent drug and or alcohol use. Per his outpatient provider he has a long history of alcohol abuse. While he is on wellbutrin, his urine was positive for amphetamine without a record of being prescribed amphetamine on [place] prescription monitoring program. Upon evaluation patient mumbles to self and is unable to participate in the encounter. Collateral from his family practitioner suggested that he has not displayed concerning cognitive changes, but noted that he has a long history of alcohol use but has never seen him intoxicated during follow up appointments. Patient was unable to engage in encounter to complete psychiatric review of systems. PAST PSYCHIATRIC HISTORY: Prior Diagnosis :Depression and Anxiety History of past Psychiatric Hospitalizations: Per collateral no known past Psychiatric Hospitalizations History of past suicide/homicide attempts : Per collateral no known past suicide/homicide attempts Outpatient follow-up: Juli Ricardo [facility] [phone] Medications: Currently psychiatric medications include effexor 150mg BID and wellbutrin 150mg BID, Xanax 1mg QID recently decreased to 0.5mg daily last admission Other home medications include: 1. Voltaren topical 1% t.i.d. p.r.n. 2. Coumadin 3.5 mg daily. 3. Tylenol 650 mg q.4 hours as needed for pain. 4. Alprazolam 0.5 q.6 hours p.r.n., previous dose was 1 mg 4 times a day as needed. 5. Atorvastatin 40 mg p.o. daily. 6. Trazodone 50 mg at h.s. 7. Plavix 75 mg p.o. daily. 8. Lovenox 80 mg subcu b.i.d. 9. Lisinopril 20 mg p.o. daily. 10. Oxycodone 5/325 one tablet p.o. q.4 hours as needed for pain. Guardianship: None. FAMILY HISTORY: - Suicide: unknown - Mental illness: unknown - Substance abuse: unknown SUBSTANCE ABUSE HISTORY: Per collateral history he has a long history of alcohol abuse, amount and last date of use is unknown SOCIAL HISTORY: Arrested for driving without a license due to being charged with driving while intoxicated. Currently living at [facility] for rehabilitation. Most of his family is living in [place]. PAST MEDICAL HISTORY: Significant for hypertension, Buerger's disease, history of DVT on chronic anticoagulation, hyperlipidemia, depression, anxiety, peripheral neuropathy. PAST SURGICAL HISTORY: Ligament repair in the left ankle, history of iliac femoral popliteal bypass with stenting in the leg, toe amputation, rotator cuff repair. - Allergies: Asprin, adhesive tape and latex Physical Exam: Please see H and P note Mental Status Exam on Admission APPEARANCE : 58 year old in hospital room with multiple bruising wearing a diaper. BEHAVIOR: unable to participate in encounter EYE CONTACT: poor, deviation of right eye. PSYCHOMOTOR ACTIVITY: psychomotor agitation MOVEMENTS: movements of upper and lower extremity SPEECH : Normal rate, rhythm, volume and tone. MOOD : "umm " AFFECT : irritable THOUGHT PROCESS: incoherent THOUGHT CONTENT: poverty of content PERCEPTION: appears to be talking to himself SUICIDALITY: no suicidal ideation intent or plan HOMICIDALITY: no homicidal ideation intent or plan Insight/judgment: Poor insight and judgment ORIENTATION: Not Oriented to self, location, or time. MOCA unable to be performed. Diagnosis on Admission: Acute alcohol withdrawal, wernicke's encephalopathy. Assessment: 58 year old male with history of depression, anxiety, and a history of alcohol abuse presents to the medical floor with acute mental status changes starting 2 days ago. Plan # The patient doesnt requires inpatient psychiatric admission at this time. # D/C haldol and wellbutrin as it can lower seizure threshold, can use haldol 5mg in the event of acute agitation. # Can discontinue alprazolam and begin WAM protocol for alcohol withdrawal #Monitor for possible benzodiazepine withdrawal # Thiamine 500mg once. Folate 1mg daily and thiamine 100mg daily # Decrease effexor to 150mg daily # Medical management per medical team #Neurology on board for management of any neurological etiology. #Continue 1:1 supervision # Psychiatry will continue to follow patient.
[2018-10-28] MEDS ORDERED: ALPRAZolam TAB* 0.5 MG PO PRN (10:38)
[2018-10-28] MEDS ORDERED: Thiamine IV* 500 MG in NS 0.9% 250 ML* 250 ML IV ONE (12:30)
[2018-10-28] MEDS: Multivitamins/Minerals TAB PO SCH (13:54)
[2018-10-28] MEDS: Folic Acid TAB* 1 MG PO SCH (13:54)
[2018-10-28] MEDS: LORazepam TAB(*) 1 MG PO SCH ×2 (13:54→15:30)
[2018-10-28 15:35] LABS: % Iron Saturation 23 % (15-55); Iron 63 ug/dL (50-212); Total Iron Binding Capacity 272 mcg/dL (250-450); Transferrin 194 mg/dL (203-362)
[2018-10-28 15:52] LABS: Ferritin 150.2 ng/mL (24-336)
[2018-10-28 15:56] LABS: Folate 4.38 ng/mL (>3.99)
--- NOTE | 2018-10-28 16:03 | PN ---
Subjective Date of Service: 10/28/18 Interval History: Lying in bed. Agitated as evidence by frequent movement. Does not engage in ROS. One to one in place. Objective Active Medications: Acetaminophen (Tylenol Tab*) 650 mg PO Q4H PRN PRN Reason: FEVER/PAIN Atorvastatin Calcium (Lipitor*) 40 mg PO BEDTIME [facility] Last Admin: 10/27/18 21:12 Dose: 40 mg Cilostazol (Pletal Tab*) 100 mg PO BID [facility] Last Admin: 10/28/18 09:05 Dose: 100 mg Clopidogrel Bisulfate (Plavix Tab*) 75 mg PO DAILY [facility] Last Admin: 10/28/18 09:05 Dose: 75 mg Folic Acid (Folvite Tab*) 1 mg PO DAILY [facility] Last Admin: 10/28/18 13:54 Dose: 1 mg Thiamine HCl 500 mg/ Sodium (Chloride) 255 mls @ 255 mls/hr IV ONCE ONE Stop: 10/29/18 09:59 Lisinopril (Prinivil Tab*) 20 mg PO DAILY [facility] Last Admin: 10/28/18 09:05 Dose: 20 mg Lorazepam (Ativan Tab(*)) 0 - 6 mg PO .PER [place] PROTOCOL [facility]; Protocol Last Admin: 10/28/18 15:30 Dose: 6 mg Miscellaneous (Ativan Pyxis Moya) 1 ea N/A .ATIVAN IV MOYA PRN PRN Reason: PYXIS MOYA Multivitamins/Minerals (Theragran/Minerals Tab*) 1 tab PO DAILY [facility] Last Admin: 10/28/18 13:54 Dose: 1 tab Oxycodone/Acetaminophen (Percocet 5/325 Tab*) 1 tab PO Q8H PRN PRN Reason: Pain Last Admin: 10/28/18 02:31 Dose: 1 tab Pharmacy Profile Note (Coumadin Per Pharmacy*) 1 note FOLLOW UP .PER PHARMACY PROTOC [facility]; Protocol Thiamine HCl (Vitamin B-1 Tab*) 100 mg PO DAILY [facility] Venlafaxine HCl (Effexor Xr Cap*) 150 mg PO DAILY [facility] Warfarin Sodium (Coumadin Tab(*)) 1 mg PO ONCE ONE; Protocol Stop: 10/28/18 17:01 Warfarin Sodium (Coumadin Tab(*)) 2.5 mg PO ONCE ONE Stop: 10/28/18 17:01 Vital Signs - 8 hr 10/28/18 10/28/18 10/28/18 09:04 10:11 12:24 Temperature Pulse Rate Respiratory 24 24 20 Rate Blood Pressure (mmHg) O2 Sat by Pulse Oximetry 10/28/18 10/28/18 10/28/18 13:00 13:54 15:05 Temperature 97.8 F 97.6 F Pulse Rate 110 115 Respiratory 20 18 20 Rate Blood Pressure 142/76 132/66 (mmHg) O2 Sat by Pulse 100 96 Oximetry 10/28/18 15:30 Temperature Pulse Rate Respiratory 24 Rate Blood Pressure (mmHg) O2 Sat by Pulse Oximetry Oxygen Devices in Use Now: None Appearance: Agitated as evidence by frequent movement and moaning. Eyes: No Scleral Icterus, - - Right eye deviated. Ears/Nose/Mouth/Throat: NL Teeth, Lips, Gums, Clear Oropharnyx, Mucous Membranes Moist Neck: NL Appearance and Movements; NL JVP Respiratory: Symmetrical Chest Expansion and Respiratory Effort, Clear to Auscultation Cardiovascular: NL Sounds; No Murmurs; No JVD, No Edema Abdominal: NL Sounds; No Tenderness; No Distention Lymphatic: No Cervical Adenopathy Extremities: No Clubbing, Cyanosis, - - Cast on LLE Skin: No Nodules or Sclerosis Neurological: NL Muscle Strength and Tone - Withdrawals equally Result Diagrams: 10/27/18 10:59 10/27/18 10:59 Additional Lab and Data: Laboratory Results - last 24 hr 10/27/18 10:59 Sodium 137 Potassium 4.7 Chloride 106 Carbon Dioxide 21 L Anion Gap 10 BUN 24 Creatinine 1.23 H Est GFR ( Amer) 73.1 Est GFR (Non-Af Amer) 60.4 BUN/Creatinine Ratio 19.5 Glucose 106 H Calcium 9.4 Magnesium 2.0 Iron 63 TIBC 272 % Saturation 23 Unsat Iron Binding < 257 Transferrin 194 L Ferritin 150.2 Total Bilirubin 1.00 AST 26 ALT 22 Alkaline Phosphatase 134 H Total Creatine Kinase 302 H Troponin I 0.00 Total Protein 6.9 Albumin 4.3 Globulin 2.6 Albumin/Globulin Ratio 1.7 Vitamin B12 189 Folate 4.38 TSH 0.67 Salicylates < 2.50 Acetaminophen < 15 Serum Alcohol < 10 Microbiology and Other Data: Microbiology 10/28/18 06:00 Nasal Nasal Screen MRSA (PCR) - Final Mrsa Not Detected Assess/Plan/Problems-Billing Assessment: 58 yr old male with pmh of htn buergers, dvt, hld, depression, anxiety; who presented to the ED from [facility] due to AMS - Patient Problems (1) Altered mental status Comment: - Patient presented to ED with AMS. Call was placed to [facility] by Dr Steinberg and staff report he was in his usual state of health until about 2 days ago when he became more altered. - Per nursing notes in chart from [facility] patient was having hallucinations. - Patient is currently incoherent - Patient will occasionally follow simple commands like raising arm or pushing extremities. - Received call this evening that patient was standing on bed and not follow directions. Luigi ordered x1. (2) Toxic encephalopathy Comment: - AMS suspected to be secondary to toxic encephalopathy possible due to medications, alcohol or withdrawal. - Patient recently had medications changes with Xanax and Effexor which could have attributed to encephalopathy - EEG completed and awaiting official read. Prelim read by Dr Brand was that there was no seizure activity. - MRI ordered. - WAM ordered by psych. - Patient transferred to [facility] on 10/20 from the hospital and he has resided there until this admission. - Per collateral obtained from family by Dr Do, patient has not always been forth coming about drinking habits - Thiamine ordered per Neurology (3) Anxiety and depression Comment: - Given acute AMS changes made to medicataions per Psych: Routine Haldol and Wellbutrin discontinued, Xanax disontinued and WAM implemented. - Effexor continued, but at lower dose (4) Buerger's disease Comment: - LLE only, s/p femoral, iliac, popliteal stenting and bypasses - Continue Pletal, Plavix (5) History of DVT (deep vein thrombosis) Current Visit: No Status: Acute Code(s): Z86.718 - PERSONAL HISTORY OF OTHER VENOUS THROMBOSIS AND EMBOLISM SNOMED Code(s): 887412003 Comment: - Coumadin (6) Hyperlipidemia Comment: - Continue atorvastatin (7) Hypertension Comment: - Continue lisinopril (8) Thrombocytosis Comment: - PLT yesterday 828 and today 999 - Could be acute phase reactant. - Given hx of Beurgers and DVT; I have requested a consult from Hematology. (9) Vitamin B 12 deficiency Comment: - 189 - Replacement ordered (10) Full code status Comment: (11) DVT prophylaxis Comment: - Coumadin Status and Disposition: Inpatient. Attending: Kimberly Russo
[2018-10-28] MEDS ORDERED: Ziprasidone IM INJ* 20 MG/ML VIAL IM ONE (16:35)
[2018-10-28] MEDS ORDERED: Warfarin TAB(*) 1 MG PO ONE (17:00)
[2018-10-28] MEDS ORDERED: Warfarin TAB(*) 2.5 MG PO ONE (17:00)
--- NOTE | 2018-10-28 17:04 | CONS ---
NEUROLOGY CONSULTATION NOTE: DATE OF CONSULT: 10/28/18 CONSULTING PROVIDER: Dr. Garland Gallagher. REASON FOR CONSULT: Possible seizure-like activity. CHIEF COMPLAINT: Incoherent and not following commands. HISTORY OF PRESENT ILLNESS: Mr. Castro is a 58-year-old man with history of psychiatric history who was admitted for possible acute psychosis, who developed sudden onset agitation this morning and minimally responsive state. Neurology was consulted to evaluate for possible seizure. The patient opens his eyes briefly, is moving sporadically, has startle myoclonus, and appears restless in bed. He has incomprehensible speech and is insensible. He makes no sense. He is able to move extremities to command, but he will not focus or cooperate with the examiner. Apparently, the patient has history of depression; anxiety; peripheral neuropathy; DVT, on Coumadin; Buerger's disease; hypertension, and dyslipidemia. He was hospitalized twice within this past month. Initial hospitalization was due to a left knee surgery. He was discharged on 10/17/18, but was admitted again on 10/18/18 due to left ankle pain and falls at home. Initially, he was discharged to home, but then was discharged to [place] where he has been residing for rehabilitation. The patient presented yesterday from [place] to the ER at [facility] for altered mental status and increased anxiety. He was evaluated by Elayne Anna NP, yesterday and during her evaluation, the patient thought that he was brought in by associate vice president from [facility] to have a drug screen. Apparently, he was paranoid and was concerned that his diamonds were missing from his home. He was described as trouble focusing and difficulty answering questions. The examination today is different than the examination yesterday; however, the patient did receive Haldol 3 mg and lorazepam 1 mg this morning 1 to 3 hours before my assessment. Apparently, there were also concerns that the patient's medications have been altered over the last few weeks from when he comes to the hospital and then gets discharged. Apparently, the patient's Effexor was dropped from 150 twice a day to 150 daily and now decreased again to 150 daily after being placed on 150 b.i.d. since admission. He also was taking the last dose of Wellbutrin. He has Xanax prescribed 1 mg every 6 hours as needed. It is unclear how long he was taking the Xanax. An EEG was obtained while he was having some of the bizarre abnormal movements and there was no evidence of epileptiform abnormalities. The EEG showed evidence of mild generalized nonspecific slowing of the background. PAST MEDICAL HISTORY: Hypertension; Buerger's disease; history of DVT, on chronic anticoagulation therapy with Coumadin; hyperlipidemia; depression; anxiety; peripheral neuropathy. PAST SURGICAL HISTORY: Recent ligament repair and history of iliac-femoral popliteal bypass with stenting. HOME MEDICATIONS: Include: 1. Cilostazol 100 mg. 2. Atorvastatin 40 mg p.o. at bedtime. 3. Venlafaxine 150 mg p.o. b.i.d. 4. Trazodone 50 mg p.o. at bedtime. 5. Lisinopril 20 mg p.o. daily. 6. Diclofenac 1 application topical t.i.d. p.r.n. 7. Clopidogrel 75 mg p.o. daily. 8. Bupropion 150 mg p.o. b.i.d. 9. Alprazolam 1 mg p.o. q.i.d. p.r.n. 10. Acetaminophen 650 mg p.o. every 4 hours as needed. 11. Oxycodone 1 tablet by mouth every 6 hours as needed. 12. Warfarin 3.5 mg p.o. daily. ALLERGIES: ASPIRIN, ADHESIVE TAPE, and LATEX. FAMILY HISTORY: Mother of [place]. No reported history of cancer. SOCIAL HISTORY: According to the report, the patient denied any recent alcohol or tobacco use. There is a questionable reported history of alcohol abuse in the history, but we are unable to confirm that now. REVIEW OF SYSTEMS: The patient is unable to participate with the review of systems at this time due to encephalopathy. PHYSICAL EXAM: Vitals: Temperature of 97.8, pulse rate of 110, respiratory rate of 20, oxygen saturation of 100%, and blood pressure of 142/76. General: Disheveled appearing man, who is restless, who has severe startle myoclonus and alerts for a few seconds, but then goes back to a drowsy state. Head: Normocephalic, atraumatic. Eyes: Conjunctivae/corneas are clear, deviating towards the right, but then also to the left. Neck is supple and symmetrical. There is no carotid bruit. No lymphadenopathy. He has no nuchal rigidity. Lungs are clear to auscultation bilaterally, nonlabored breathing. Cardiovascular: Regular rate and rhythm with normal S1, S2. Extremities: Normal range of motion with no cyanosis or hammertoes. Skin: No skin lesions or lacerations. Psych: Inappropriate, agitated, irritable as well as has myoclonic-like jerking. Neurological Examination: Mental Status: The patient is easily arousable, but is not alert except for name. He is unaware of where he is. He is extremely drowsy that he goes back to sleep after a few seconds. Cranial Nerves: He has a disconjugate gaze with the eyes roving towards the right and left. No clear nystagmus. Sensation is intact on the forehead, cheeks, and jaw region bilaterally. He has no facial droop. Tongue is symmetrical and midline. Motor Examination: He is able to move all 4 extremities to command, actually against gravity, but then goes back to sleep within again a few seconds. Reflexes: Right/left, brachioradialis 1/1, biceps 1 /1, triceps 1/1, patella 1/1, ankle 0/0, plantar flexor/flexor. Sensation appears to be intact to noxious stimuli in all 4 distal extremities. Coordination and gait were not assessed given that the patient is unable to cooperate with the examiner. DIAGNOSTIC STUDIES/LAB DATA: WBC of 9.1, hemoglobin of 14, hematocrit of 42, platelet count of 999,000. INR 2.75. Sodium 137, potassium 4.7, chloride of 106, anion gap of 10, BUN of 24, creatinine of 1.24, glucose 106. Alkaline phosphatase of 134, ammonia of 41. TSH is 0.67. Urinalysis: No pyuria. Toxicology screen positive for amphetamines and benzodiazepines. CT of the head without contrast showed no evidence of acute intracranial abnormality. This was personally reviewed by me. I reviewed Dr. Gallagher's note and recommendations. ASSESSMENT: Mr. William Castro is a 58-year-old man, who initially presented with acute psychotic like symptoms with paranoia, but developed acute encephalopathy today. I suspect the acute encephalopathy is related to toxic encephalopathy secondary to the combination of antipsychotic therapy, benzodiazepines, and his current antidepressant medications. Reassuringly, the EEG was obtained during the same time he had these abnormal movements and it showed no evidence of epileptiform discharges or electrographic seizures. The EEG background actually just showed mild diffuse slowing of the background with a frequency of approximately 7 Hz. The other differential diagnosis includes Wernicke's encephalopathy if the patient has history of alcohol us (although I was unable to find that in the medical chart), or possible benzodiazepine withdrawal since the patient was supposed to be taking benzodiazepine - 1 mg of Xanax every 6 hours as needed. We are not sure if he was taking that regularly and then that abruptly discontinued or changed. I am not concerned about stroke and I am less concerned about seizures given that we documented these movements to be nonepileptic. However, the patient does seem to have a toxic metabolic reaction from probably all the antipsychotic, antidepressant, and benzodiazepine therapy he has been receiving. He is not showing any signs of [employer]ULATORY COMPLIANCE DIRECTOR infection as he has no nuchal rigidity and he was talking and verbalizing with staff last night before he received the Haldol today. RECOMMENDATIONS: Please continue neuro checks every 4 hours. If the patient's agitation worsens, he may need to go to the ICU for closer monitoring. Please obtain an MRI of the brain without contrast to evaluate for any structural abnormalities. Given his kidney function and we do not have any concern at this point, we will do a noncontrasted study. Minimize the use of benzodiazepines, although do not completely discontinue the medication since he can develop a benzodiazepine withdrawal. I do not see any evidence of ankle clonus, hyperreflexia, or hemodynamic dysregulation to suspect serotonin syndrome; however, decreasing the Effexor to prevent it is recommended.. This differential is not entirely excluded. Please obtain a vitamin B12 level. Please obtain a CK level. Furthermore, treat with thiamine 500 mg IV x1 and then can repeat another dose tomorrow. If he responds to thiamine, please increase his thiamine to 500 mg every 8 hours for the next 48 hours. I will sign out to Dr. Robi Grijalva, who will follow the patient over the weekend. TIME SPENT: I spent a total of 75 minutes of which more than 50% was spent obtaining history, examining the patient, education and counseling with the primary team and other providers including Dr. Gallagher. [id number]/[facility] #: [id number] DANIELA
[2018-10-28] MEDS: Atorvastatin* 40 MG TAB PO SCH (21:18)
[2018-10-28] MEDS: NS 0.9% 1000 ML** 1,000 ML IV SCH (21:18)
--- NOTE | 2018-10-29 00:17 | EEG ---
ELECTROENCEPHALOGRAPHY: DATE OF STUDY: 10/28/18 DATE READ: 10/28/18 ORDERED BY: Casandra Frye NP CLINICAL PROBLEM: Mr. Castro is a 58-year-old man, who has history of depression and anxiety disorder, who presents with abnormal movements. This EEG was requested to evaluate for epileptiform abnormalities or convulsive status epilepticus. CLINICAL STATE: Awake and drowsy. REPORT: This is a limited EEG due to diffuse muscle movement artifact. However , in between the movements, we were able to see the background which consisted of a mixed frequency slowing in the delta and theta range with appropriate organization and clearly defined anterior-posterior voltage. There was a slow waking background rhythm of 7 Hz, which was symmetrical and showed normal reactivity. Anteriorly, there was an expected pattern of lower voltage, irregular, mixed faster frequencies. Attenuation of the occipital rhythm accompanied drowsiness. Hyperventilation and photic stimulation were not performed. Single electrode EKG showed sinus tachycardia. CLINICAL IMPRESSION: This is an abnormal awake and drowsy EEG due to a slow posterior dominant rhythm. Otherwise, there was retained organization reactivity. These findings are suggestive of a mild nonspecific encephalopathy. Please note that the cardiac technologist as well as the video recorded the patient "whole body twitching, fighting the aide, lifting the legs, shaking, and hallucinating." These were not clearly associated with any epileptiform discharges or electrographic seizures; however, the quality of the study is limited due to movement artifact. [id number]/[facility] #: [id number] MTDD
[2018-10-29] MEDS: LORazepam TAB(*) 1 MG PO SCH ×9 (00:24→22:34)
[2018-10-29 06:32] LABS: ABS Eosinophils 0.3 10^3/ul (0-0.6); ABS Lymphocytes 1.6 10^3/ul (1.0-4.8); ABS Monocytes 0.7 10^3/ul (0-0.8); ABS Neutrophils 6.5 10^3/ul (1.5-7.7); Eosinophil % 3.5 %; Hematocrit 40 % (42-52); Hemoglobin 13.7 g/dL (14.0-18.0); Lymphocyte % 17.7 %; Mean Corpuscular HGB Conc 34 g/dL (31-36); Mean Corpuscular Hemoglobin 34 pg (27-31); Mean Corpuscular Volume 100 fL (80-94); Mean Platelet Volume 7.2 fL (7.4-10.4); Platelet Count 812 10^3/uL (150-450); Red Blood Count 4.02 10^6 /uL (4.18-5.48); Red Cell Distribution Width 15 % (10.5-15); White Blood Count 9.2 10^3/uL (3.5-10.8)
[2018-10-29 06:35] LABS: INR 4.97 (0.82-1.09)
[2018-10-29 06:49] LABS: BUN/Creatinine Ratio 28.5 (8-20); Calcium 8.8 mg/dL (8.6-10.3); EGFR African American 64.6 (>60); EGFR Non-African American 53.4 (>60); Potassium 3.7 mmol/L (3.5-5.0)
[2018-10-29] MEDS: NS 0.9% 1000 ML** 1,000 ML IV SCH (07:09)
[2018-10-29] MEDS: Clopidogrel TAB* 75 MG PO SCH (08:24)
[2018-10-29] MEDS: Cilostazol TAB* 100 MG PO SCH (08:24)
[2018-10-29] MEDS: Multivitamins/Minerals TAB PO SCH (08:25)
[2018-10-29] MEDS: Cyanocobalamin TAB* 500 MCG PO SCH (08:26)
[2018-10-29] MEDS: Folic Acid TAB* 1 MG PO SCH (08:26)
[2018-10-29] MEDS: Lisinopril TAB* 10 MG PO SCH (08:26)
[2018-10-29] MEDS: Venlafaxine EXT RELEASE CAP* 75 MG PO SCH (08:26)
[2018-10-29] MEDS: Thiamine TAB* 100 MG TAB PO SCH (08:26)
--- NOTE | 2018-10-29 08:36 | PN ---
Subjective Date of Service: 10/29/18 Length of Stay: 2 Days Interval History: Better overnight, slept better. Received Ativan for agitation overnight. Awake and alert this am, tremulous. Eating breakfast, much more alert than prior reports. EEG: c/w encephalopathy MRI: No acute issues Objective Active Medications: Acetaminophen (Tylenol Tab*) 650 mg PO Q4H PRN PRN Reason: FEVER/PAIN Atorvastatin Calcium (Lipitor*) 40 mg PO BEDTIME [facility] Last Admin: 10/28/18 21:18 Dose: 40 mg Cilostazol (Pletal Tab*) 100 mg PO BID [facility] Last Admin: 10/29/18 08:24 Dose: Not Given Clopidogrel Bisulfate (Plavix Tab*) 75 mg PO DAILY [facility] Last Admin: 10/29/18 08:24 Dose: Not Given Cyanocobalamin (Vitamin B12 Tab*) 1,000 mcg PO DAILY [facility] Last Admin: 10/29/18 08:26 Dose: 1,000 mcg Folic Acid (Folvite Tab*) 1 mg PO DAILY [facility] Last Admin: 10/29/18 08:26 Dose: 1 mg Thiamine HCl 500 mg/ Sodium (Chloride) 255 mls @ 255 mls/hr IV ONCE ONE Stop: 10/29/18 09:59 Last Admin: 10/29/18 08:25 Dose: 255 mls/hr Sodium Chloride (Ns 0.9% 1000 Ml) 1,000 mls @ 100 mls/hr IV PER RATE [facility] Last Admin: 10/29/18 07:09 Dose: 100 mls/hr Lisinopril (Prinivil Tab*) 20 mg PO DAILY [facility] Last Admin: 10/29/18 08:26 Dose: 20 mg Lorazepam (Ativan Tab(*)) 0 - 6 mg PO .PER [facility] PROTOCOL [facility]; Protocol Last Admin: 10/29/18 08:26 Dose: 3 mg Miscellaneous (Ativan Pyxis Aceves) 1 ea N/A .ATIVAN IV ACEVES PRN PRN Reason: PYXIS ACEVES Multivitamins/Minerals (Theragran/Minerals Tab*) 1 tab PO DAILY [facility] Last Admin: 10/29/18 08:25 Dose: 1 tab Oxycodone/Acetaminophen (Percocet 5/325 Tab*) 1 tab PO Q8H PRN PRN Reason: Pain Last Admin: 10/28/18 02:31 Dose: 1 tab Pharmacy Profile Note (Coumadin Per Pharmacy*) 1 note FOLLOW UP .PER PHARMACY PROTOC [facility]; Protocol Thiamine HCl (Vitamin B-1 Tab*) 100 mg PO DAILY [facility] Last Admin: 10/29/18 08:26 Dose: 100 mg Venlafaxine HCl (Effexor Xr Cap*) 150 mg PO DAILY [facility] Last Admin: 10/29/18 08:26 Dose: 150 mg Vital Signs 10/28/18 10/28/18 10/28/18 09:04 10:11 12:24 Temperature Pulse Rate Respiratory 24 24 20 Rate Blood Pressure (mmHg) O2 Sat by Pulse Oximetry 10/28/18 10/28/18 10/28/18 13:00 13:54 15:05 Temperature 97.8 F 97.6 F Pulse Rate 110 115 Respiratory 20 18 20 Rate Blood Pressure 142/76 132/66 (mmHg) O2 Sat by Pulse 100 96 Oximetry 10/28/18 10/28/18 10/28/18 15:30 17:00 18:00 Temperature Pulse Rate 100 Respiratory 24 18 20 Rate Blood Pressure 89/53 (mmHg) O2 Sat by Pulse 95 Oximetry 10/28/18 10/28/18 10/28/18 19:03 20:00 21:05 Temperature 97.1 F 97.6 F Pulse Rate 78 82 Respiratory 20 18 20 Rate Blood Pressure 106/52 106/51 (mmHg) O2 Sat by Pulse 95 98 Oximetry 10/28/18 10/29/18 10/29/18 23:08 00:24 01:22 Temperature 98 F 97.4 F Pulse Rate 90 98 Respiratory 20 16 20 Rate Blood Pressure 112/58 118/62 (mmHg) O2 Sat by Pulse 97 98 Oximetry 10/29/18 10/29/18 10/29/18 02:00 03:10 03:55 Temperature 98.2 F Pulse Rate 87 Respiratory 18 20 20 Rate Blood Pressure 131/70 (mmHg) O2 Sat by Pulse 96 Oximetry 10/29/18 10/29/18 10/29/18 03:56 05:30 05:33 Temperature 98.4 F Pulse Rate 99 Respiratory 20 20 18 Rate Blood Pressure 138/66 (mmHg) O2 Sat by Pulse Oximetry 10/29/18 10/29/18 10/29/18 07:20 08:09 08:26 Temperature 98.5 F 98.3 F Pulse Rate 90 98 Respiratory 21 20 18 Rate Blood Pressure 102/68 110/56 (mmHg) O2 Sat by Pulse 93 95 Oximetry Intake and Output Last 24 Hours 10/27/18 10/28/18 10/29/18 10/30/18 06:59 06:59 06:59 06:59 Intake Total 0 1155 1049 Output Total 200 175 Balance -200 1155 874 Weight 159 lb 3.2 oz 159 lb 3.2 oz Intake: IV Fluids 1049 thiamine 1049 IVPB 255 thiamine 255 Oral 0 900 Output: Urine 200 175 Other: Estimated Void Medium # Bowel Movements 0 # Voids 0 1 Oxygen Devices in Use Now: None Neurology Exam: General: Disheveled HEENT: Normocephelic/atraumatic, poor dentition, anicteric Neck: Supple Chest: Clear to auscultation bilaterally Cardiovascular: Regular rate and rhythm without murmurs, rubs, gallops Abdomen: Soft, non-tender/non-distended Extremities: No clubbing, cyanosis, or edema Skin: Scattered bruises Neurological Findings: Awake, alert, and oriented to person, place, and thought it was October 22 Following commands Speech: fluent without dysarthria, repetition intact Cranial Nerve: PERRL, EOM intact, VFF, 3-4 beats lateral gaze nystagmus bilaterally face symmetric bilaterally, facial sensation intact, hearing intact to finger rub bilaterally, palate elevates symmetrically, tongue midline, SCM and Trapezius s/s. Motor: SMAE antigravity Sensation: intact to LT/PP bilaterally upper and lower extremities, grossly Deep Tendon Reflex: WNL Tremulous, with intention tremor, occasional myoclonic like jerks Result Diagrams: 10/29/18 05:55 10/29/18 05:55 Additional Lab and Data: Laboratory Results - last 24 hr 10/27/18 10:59 Sodium 137 Potassium 4.7 Chloride 106 Carbon Dioxide 21 L Anion Gap 10 BUN 24 Creatinine 1.23 H Est GFR ( Amer) 73.1 Est GFR (Non-Af Amer) 60.4 BUN/Creatinine Ratio 19.5 Glucose 106 H Calcium 9.4 Magnesium 2.0 Iron 63 TIBC 272 % Saturation 23 Unsat Iron Binding < 257 Transferrin 194 L Ferritin 150.2 Total Bilirubin 1.00 AST 26 ALT 22 Alkaline Phosphatase 134 H Total Creatine Kinase 302 H Troponin I 0.00 Total Protein 6.9 Albumin 4.3 Globulin 2.6 Albumin/Globulin Ratio 1.7 Vitamin B12 189 Folate 4.38 TSH 0.67 Salicylates < 2.50 Acetaminophen < 15 Serum Alcohol < 10 Microbiology and Other Data: Microbiology 10/28/18 06:00 Nasal Nasal Screen MRSA (PCR) - Final Mrsa Not Detected Assessment/Plan 58 year old gentleman with a history of Buerger's disease, DVT, HLD, anxiety and depression, reported Alcohol use who has had several recent admissions with worsening mental status. --AMS: Toxic encephalopathy: Multifactorial related to recent illnesses, multiple medication changes, +/- BZD withdraw, +/- recent/history of EtOH use --No evidence of seizure or stroke --I am worried about continued, under-reported EtOH use: Would continue [facility] protocol --Continue close neuro checks --Supplement Thiamin and F.A --B12 replacement --Minimize sedating meds as much as possible with atypical/BZD for acute agitation --Minimize any changes to his antidepressant meds at this point. Would continue current regimen. No evidence Serotonin syndrome --Will continue to follow along, no new recs at this time. Continue supportive care
[2018-10-29] MEDS ORDERED: Thiamine IV* 500 MG in NS 0.9% 250 ML* 250 ML IV ONE (09:00)
--- NOTE | 2018-10-29 14:33 | PN ---
Subjective Date of Service: 10/29/18 Interval History: Patient very cooperative and engaged in care this AM. However, frequently falls asleep during conversation and has poor insight. Patient denies F/C, N/V, abdominal pain, diarrhea, CP, SOB, or other pain. Family History: Unchanged from Admission Social History: Unchanged from Admission Past Medical History: Unchanged from Admission Objective Active Medications: Acetaminophen (Tylenol Tab*) 650 mg PO Q4H PRN PRN Reason: FEVER/PAIN Atorvastatin Calcium (Lipitor*) 40 mg PO BEDTIME [facility] Last Admin: 10/28/18 21:18 Dose: 40 mg Cyanocobalamin (Vitamin B12 Tab*) 1,000 mcg PO DAILY [facility] Last Admin: 10/29/18 08:26 Dose: 1,000 mcg Folic Acid (Folvite Tab*) 1 mg PO DAILY [facility] Last Admin: 10/29/18 08:26 Dose: 1 mg Sodium Chloride (Ns 0.9% 1000 Ml) 1,000 mls @ 100 mls/hr IV PER RATE [facility] Last Admin: 10/29/18 07:09 Dose: 100 mls/hr Lisinopril (Prinivil Tab*) 20 mg PO DAILY [facility] Last Admin: 10/29/18 08:26 Dose: 20 mg Lorazepam (Ativan Tab(*)) 0 - 6 mg PO .PER WA PROTOCOL [facility]; Protocol Last Admin: 10/29/18 10:23 Dose: 3 mg Miscellaneous (Ativan Pyxis Moya) 1 ea N/A .ATIVAN IV MOYA PRN PRN Reason: PYXIS MOYA Multivitamins/Minerals (Theragran/Minerals Tab*) 1 tab PO DAILY [facility] Last Admin: 10/29/18 08:25 Dose: 1 tab Oxycodone/Acetaminophen (Percocet 5/325 Tab*) 1 tab PO Q8H PRN PRN Reason: Pain Last Admin: 10/28/18 02:31 Dose: 1 tab Pharmacy Profile Note (Coumadin Per Pharmacy*) 1 note FOLLOW UP .PER PHARMACY PROTOC [facility]; Protocol Thiamine HCl (Vitamin B-1 Tab*) 100 mg PO DAILY [facility] Last Admin: 10/29/18 08:26 Dose: 100 mg Venlafaxine HCl (Effexor Xr Cap*) 150 mg PO DAILY [facility] Last Admin: 10/29/18 08:26 Dose: 150 mg Vital Signs - 8 hr 10/29/18 10/29/18 10/29/18 07:20 08:00 08:09 Temperature 98.5 F 98.3 F Pulse Rate 90 98 Respiratory 21 16 20 Rate Blood Pressure 102/68 110/56 (mmHg) O2 Sat by Pulse 93 95 Oximetry 10/29/18 10/29/18 10/29/18 08:26 10:00 10:23 Temperature Pulse Rate 111 Respiratory 18 20 18 Rate Blood Pressure 108/61 (mmHg) O2 Sat by Pulse Oximetry 10/29/18 10/29/18 10/29/18 12:28 13:07 14:00 Temperature 97.8 F Pulse Rate 106 109 Respiratory 20 18 Rate Blood Pressure 116/63 118/52 (mmHg) O2 Sat by Pulse 96 Oximetry Oxygen Devices in Use Now: None Appearance: Patient is a 58yo male who appears stated age and is sitting in the bed, occasionally grabbing at the air. Eyes: No Scleral Icterus, PERRLA Ears/Nose/Mouth/Throat: NL Teeth, Lips, Gums, Clear Oropharnyx, Mucous Membranes Moist Neck: NL Appearance and Movements; NL JVP, Trachea Midline Respiratory: Symmetrical Chest Expansion and Respiratory Effort, Clear to Auscultation Cardiovascular: NL Sounds; No Murmurs; No JVD, RRR, No Edema Abdominal: NL Sounds; No Tenderness; No Distention Lymphatic: No Cervical Adenopathy Extremities: No Edema, No Clubbing, Cyanosis, - - Left foot in cast. Skin: No Nodules or Sclerosis, - - Bruising in various stages of healing over entire body Neurological: Alert and Oriented x 3, - - Tremulous, hyperactive. Result Diagrams: 10/30/18 06:38 10/29/18 05:55 Additional Lab and Data: Laboratory Results - last 24 hr 10/27/18 10:59 Sodium 137 Potassium 4.7 Chloride 106 Carbon Dioxide 21 L Anion Gap 10 BUN 24 Creatinine 1.23 H Est GFR ( Amer) 73.1 Est GFR (Non-Af Amer) 60.4 BUN/Creatinine Ratio 19.5 Glucose 106 H Calcium 9.4 Magnesium 2.0 Iron 63 TIBC 272 % Saturation 23 Unsat Iron Binding < 257 Transferrin 194 L Ferritin 150.2 Total Bilirubin 1.00 AST 26 ALT 22 Alkaline Phosphatase 134 H Total Creatine Kinase 302 H Troponin I 0.00 Total Protein 6.9 Albumin 4.3 Globulin 2.6 Albumin/Globulin Ratio 1.7 Vitamin B12 189 Folate 4.38 TSH 0.67 Salicylates < 2.50 Acetaminophen < 15 Serum Alcohol < 10 Microbiology and Other Data: Microbiology 10/28/18 06:00 Nasal Nasal Screen MRSA (PCR) - Final Mrsa Not Detected Assess/Plan/Problems-Billing 58 year old gentleman with a history of Buerger's disease, DVT, HLD, anxiety and depression, reported Alcohol use who has had several recent admissions with worsening mental status. - Patient Problems (1) Altered mental status Current Visit: Yes Status: Acute Code(s): R41.82 - ALTERED MENTAL STATUS, UNSPECIFIED SNOMED Code(s): 518330188 Comment: - Patient presented to ED with AMS. Call was placed to [facility] by Dr Steinberg and staff report he was in his usual state of health until about 2 days ago when he became more altered. - Per nursing notes in chart from [facility] patient was having hallucinations. - Patient is greatly improved today, continue WAM and Vitamin Supplementation. (2) Thrombocytosis Current Visit: Yes Status: Acute Comment: - Trending down - Could be acute phase reactant. - Appreciate Heme/Onc Consult, continue to trend (3) Toxic encephalopathy Current Visit: Yes Status: Acute Code(s): G92 - TOXIC ENCEPHALOPATHY SNOMED Code(s): 04856999 Comment: - AMS suspected to be secondary to toxic encephalopathy possible due to medications, alcohol or withdrawal. - Patient recently had medications changes with Xanax and Effexor which could have attributed to encephalopathy - EEG completed and shows no Epileptiform discharges - MRI ordered. - WAM ordered by psych. - Patient transferred to [facility] on 10/20 from the hospital and he has resided there until this admission. - Per collateral obtained from family by Dr Diehl, patient has not always been forth coming about drinking habits - Thiamine ordered per Neurology (4) Inability to ambulate due to left ankle or foot Current Visit: No Status: Acute Code(s): R26.2 - DIFFICULTY IN WALKING, NOT ELSEWHERE CLASSIFIED SNOMED Code(s): 709949112 Comment: - S/p left ankle ligament repair on 10/13/[address] Colon - NWB LLE per d/c summary from prior visit - Will need CRISELDA as returning home is not a safe discharge - Continue Percocet (5) Vitamin B 12 deficiency Current Visit: Yes Status: Acute Code(s): E53.8 - DEFICIENCY OF OTHER SPECIFIED B GROUP VITAMINS SNOMED Code(s): 583437334 Comment: - 189 - Replacement ordered (6) Anxiety and depression Current Visit: No Status: Acute Code(s): F41.9 - ANXIETY DISORDER, UNSPECIFIED; F32.9 - MAJOR DEPRESSIVE DISORDER, SINGLE EPISODE, UNSPECIFIED SNOMED Code(s): 628199268 Comment: - Given acute AMS changes made to medicataions per Psych: Routine Haldol and Wellbutrin discontinued, Xanax disontinued and WAM implemented. - Effexor continued, but at lower dose (7) Buerger's disease Current Visit: No Status: Acute Code(s): I73.1 - THROMBOANGIITIS OBLITERANS [BUERGER'S DISEASE] SNOMED Code(s): 49978440 Comment: - LLE only, s/p femoral, iliac, popliteal stenting and bypasses - Hold Pletal and Plavix due to Bruising and very supratherapeutic INR (8) History of DVT (deep vein thrombosis) Current Visit: No Status: Acute Code(s): Z86.718 - PERSONAL HISTORY OF OTHER VENOUS THROMBOSIS AND EMBOLISM SNOMED Code(s): 313851052 Comment: - Coumadin (9) Hyperlipidemia Current Visit: No Status: Acute Code(s): E78.5 - HYPERLIPIDEMIA, UNSPECIFIED SNOMED Code(s): 02709134 Comment: - Continue atorvastatin (10) Hypertension Current Visit: No Status: Acute Code(s): I10 - ESSENTIAL (PRIMARY) HYPERTENSION SNOMED Code(s): 40329429 Comment: - Normotensive - Continue lisinopril (11) DVT prophylaxis Current Visit: No Status: Acute Code(s): Z29.9 - ENCOUNTER FOR PROPHYLACTIC MEASURES, UNSPECIFIED SNOMED Code(s): 429500376 Comment: - Supratheraperutic on Coumadin (12) Full code status Current Visit: No Status: Acute Code(s): Z78.9 - OTHER SPECIFIED HEALTH STATUS SNOMED Code(s): 218551493 Comment: Status and Disposition: Inpatient.
--- NOTE | 2018-10-29 20:12 | CONS ---
MEDICAL ONCOLOGY/HEMATOLOGY CONSULTATION NOTE: DATE OF CONSULT: 10/29/18 REASON FOR CONSULT: Thrombocytosis. HISTORY OF PRESENT ILLNESS: Mr. Castro is a 58-year-old male with multiple recent hospitalizations and emergency room visits. He was admitted on 10/13/18 with left ankle instability, peroneus brevis and longus tendon tear, and peroneal tenosynovitis. He had a lateral ligament reconstruction. He was discharged on 10/17/18. He returned on 10/18/18 and was admitted with ankle pain and difficulty ambulating after falling on multiple occasions. He then was discharged on 10/20/18 to [place] for subacute rehab. He presented to the emergency room with an altered mental status with increased anxiety. He was evaluated by [facility] and sent back to [place]. He returned again at the time of this admission, and decision was made to admit him to the hospital given his confusion. CT scan of the brain was unremarkable. During his 2 previous admissions, CBCs have been without major abnormalities. At this time on admission, he was found to have a platelet count of 828,000 despite having band in the normal range on 3 checks between 10/14/18 and . On 10/27/18, the platelet count was 929,000 and today it is 812,000. Associated with this, he has a normal white count and only minimal anemia. MCV is slightly high at 100 and has been slightly high since 10/18/18. He had a B12 level checked, which was 189. Given his nutritional status, this is not totally surprising. The patient has very little insight as to his current condition, but falls asleep frequently. PAST MEDICAL HISTORY: Does not reveal any prior significant hematologic abnormalities in terms of blood counts. He has had DVT for which he is on chronic anticoagulation. Underlying hypertension, hyperlipidemia, peripheral neuropathy, and Buerger's disease. Multiple orthopedic surgeries. Status post ileal femoral popliteal bypass. MEDICATIONS: Medications at the time of admission include: 1. Effexor 100 mg daily. 2. Wellbutrin 150 mg b.i.d. 3. Coumadin 3.5 mg daily. 4. Alprazolam 0.5 mg q.6 hours p.r.n. 5. Atorvastatin 40 mg daily. 6. Trazodone 50 mg h.s. 7. Plavix 75 mg daily. 8. Lovenox 80 mg subcu b.i.d. 9. Lisinopril 20 mg daily. 10. Oxycodone p.r.n. ALLERGIES: To ASPIRIN. SOCIAL HISTORY: Alcohol use. No tobacco. Lived alone in [place], currently at [facility]. PHYSICAL EXAM: A 58-year-old male with stable vital signs. Lungs: Clear. Heart: Benign. Abdomen: Soft, nontender without masses or organomegaly. Extremities: No edema. LABORATORY DATA: Peripheral smear was reviewed. There clearly is marked increase in number of platelets. Some of the platelets are large, and an occasional giant platelet is seen. White cells are without significant evidence for any early forms without any hypersegmented polys and without any toxic granulation. White cells appear normal without any schistocytes or any nucleated red blood cells. IMPRESSION: 1. Thrombocytosis. This is isolated without any associated changes in other cell lines. It is acute. It is almost certainly reactive to recent events and not a primary essential thrombocythemia; If a primary change, one would have expected elevated counts during his recent hospitalization and also I would have suspected other cell lines potentially to be abnormal. In the setting of secondary thrombocytosis, there is no evidence for use of aspirin.other medications or pheresis to lower the platelet count. It should come down as his medical condition improves. If his platelet count were to continue to rise and/or if his other cell lines were to also become elevated, then obtaining a workup to include JAK2, CALR, MPL would be appropriate. In addition, to that situation, BCR-ABL by FISH would be appropriate test. 2. History of deep venous thrombosis. He currently is therapeutic on his Coumadin and has only recently stopped Lovenox. He should maintain on his Coumadin. Actually today, his INR is supratherapeutic and Coumadin should be held until back to less than 3. 3. He has a very low normal B12 level, and given his nutritional status, it would be reasonable to check methylmalonic acid level, and if elevated, to supplement with B12. [id number]/[facility] #: [id number] [facility]
[2018-10-29] MEDS ORDERED: LORazepam INJ* 2 MG/ML 1 ML VIAL IV PUSH ONE (20:54)
[2018-10-29] MEDS ORDERED: Lorazepam PYXIS KEY PRN (20:54)
[2018-10-29] MEDS ORDERED: Ziprasidone IM INJ* 20 MG/ML VIAL IM PRN (22:22)
[2018-10-29] MEDS: Atorvastatin* 40 MG TAB PO SCH (22:35)
[2018-10-30] MEDS: LORazepam TAB(*) 1 MG PO SCH ×2 (02:33→16:16)
[2018-10-30] MEDS: NS 0.9% 1000 ML** 1,000 ML IV SCH ×2 (05:22→17:36)
[2018-10-30 06:46] LABS: ABS Eosinophils 0.3 10^3/ul (0-0.6); ABS Lymphocytes 1.9 10^3/ul (1.0-4.8); ABS Monocytes 0.4 10^3/ul (0-0.8); ABS Neutrophils 3.4 10^3/ul (1.5-7.7); Eosinophil % 5.1 %; Hematocrit 36 % (42-52); Hemoglobin 12.6 g/dL (14.0-18.0); Lymphocyte % 31.6 %; Mean Corpuscular HGB Conc 35 g/dL (31-36); Mean Corpuscular Hemoglobin 35 pg (27-31); Mean Corpuscular Volume 100 fL (80-94); Mean Platelet Volume 6.6 fL (7.4-10.4); Nucleated Red Blood Cells % 0.1; Platelet Count 653 10^3/uL (150-450); Red Blood Count 3.63 10^6 /uL (4.18-5.48); Red Cell Distribution Width 15 % (10.5-15)
[2018-10-30 06:59] LABS: INR 1.85 (0.82-1.09)
[2018-10-30 07:02] LABS: BUN/Creatinine Ratio 22.9 (8-20); Calcium 8.1 mg/dL (8.6-10.3); EGFR African American 97.3 (>60); EGFR Non-African American 80.5 (>60); Magnesium 1.7 mg/dL (1.9-2.7); Potassium 3.5 mmol/L (3.5-5.0)
[2018-10-30] MEDS: Lisinopril TAB* 10 MG PO SCH (10:21)
[2018-10-30] MEDS: Venlafaxine EXT RELEASE CAP* 75 MG PO SCH (10:21)
[2018-10-30] MEDS: Thiamine TAB* 100 MG TAB PO SCH (10:21)
[2018-10-30] MEDS: Folic Acid TAB* 1 MG PO SCH (10:21)
[2018-10-30] MEDS: Cyanocobalamin TAB* 500 MCG PO SCH (10:21)
[2018-10-30] MEDS: Multivitamins/Minerals TAB PO SCH (10:21)
[2018-10-30] MEDS ORDERED: Magnesium Sulfate 2 GM IV* 2 GM/50 ML BAG IVPB ONE (12:02)
--- NOTE | 2018-10-30 12:47 | PN ---
Subjective Date of Service: 10/30/18 Interval History: Patient is much more sedated today. Patient denies F/C, N/V, abdominal pain, or other pain. Patient is today not oriented to time or place. Patient received overnight Geodon. Patient looks and feels much less tremulous than previously. Family History: Unchanged from Admission Social History: Unchanged from Admission Past Medical History: Unchanged from Admission Objective Active Medications: Acetaminophen (Tylenol Tab*) 650 mg PO Q4H PRN PRN Reason: FEVER/PAIN Atorvastatin Calcium (Lipitor*) 40 mg PO BEDTIME [facility] Last Admin: 10/29/18 22:35 Dose: 40 mg Cyanocobalamin (Vitamin B12 Tab*) 1,000 mcg PO DAILY [facility] Last Admin: 10/30/18 10:21 Dose: 1,000 mcg Folic Acid (Folvite Tab*) 1 mg PO DAILY [facility] Last Admin: 10/30/18 10:21 Dose: 1 mg Sodium Chloride (Ns 0.9% 1000 Ml) 1,000 mls @ 100 mls/hr IV PER RATE [facility] Last Admin: 10/30/18 05:22 Dose: 100 mls/hr Magnesium Sulfate (Magnesium Sulfate 2 Gm Iv*) 2 gm in 50 mls @ 50 mls/hr IVPB ONCE ONE Stop: 10/30/18 13:01 Last Admin: 10/30/18 12:18 Dose: 50 mls/hr Lisinopril (Prinivil Tab*) 20 mg PO DAILY [facility] Last Admin: 10/30/18 10:21 Dose: 20 mg Lorazepam (Ativan Tab(*)) 0 - 6 mg PO .PER WA PROTOCOL [facility]; Protocol Last Admin: 10/30/18 02:33 Dose: 5 mg Miscellaneous (Ativan Pyxis Moya) 1 ea N/A .ATIVAN IV MOYA PRN PRN Reason: PYXIS MOYA Multivitamins/Minerals (Theragran/Minerals Tab*) 1 tab PO DAILY [facility] Last Admin: 10/30/18 10:21 Dose: 1 tab Oxycodone/Acetaminophen (Percocet 5/325 Tab*) 1 tab PO Q8H PRN PRN Reason: Pain Last Admin: 10/28/18 02:31 Dose: 1 tab Pharmacy Profile Note (Coumadin Per Pharmacy*) 1 note FOLLOW UP .PER PHARMACY PROTOC [facility]; Protocol Thiamine HCl (Vitamin B-1 Tab*) 100 mg PO DAILY [facility] Last Admin: 10/30/18 10:21 Dose: 100 mg Venlafaxine HCl (Effexor Xr Cap*) 150 mg PO DAILY [facility] Last Admin: 10/30/18 10:21 Dose: 150 mg Warfarin Sodium (Coumadin Tab(*)) 3 mg PO 1700 ONE Stop: 10/30/18 17:01 Ziprasidone (Geodon Im Inj*) 10 mg IM ONCE PRN PRN Reason: AGITATION Stop: 10/30/18 22:21 Last Admin: 10/29/18 22:53 Dose: 10 mg Vital Signs - 8 hr 10/30/18 10/30/18 10/30/18 05:56 07:44 08:00 Temperature 97.5 F Pulse Rate 63 64 Respiratory 16 16 16 Rate Blood Pressure 120/68 136/59 (mmHg) O2 Sat by Pulse 100 99 Oximetry 10/30/18 10/30/18 10:15 12:12 Temperature Pulse Rate 68 58 Respiratory Rate Blood Pressure 130/65 134/63 (mmHg) O2 Sat by Pulse Oximetry Oxygen Devices in Use Now: None Appearance: Patient is a 58yo male who appears stated age and is sitting in the bed in [facility]. Eyes: No Scleral Icterus, PERRLA Ears/Nose/Mouth/Throat: NL Teeth, Lips, Gums, Clear Oropharnyx, Mucous Membranes Moist Neck: NL Appearance and Movements; NL JVP, Trachea Midline Respiratory: Symmetrical Chest Expansion and Respiratory Effort, Clear to Auscultation Cardiovascular: NL Sounds; No Murmurs; No JVD, RRR, No Edema Abdominal: NL Sounds; No Tenderness; No Distention, No Hepatosplenomegaly Lymphatic: No Cervical Adenopathy Extremities: No Edema, No Clubbing, Cyanosis Skin: No Nodules or Sclerosis, - - Bruising all over abdomen with small subcutaneous hematomas. Neurological: Alert and Oriented x 3, NL Sensation, NL Muscle Strength and Tone , - - CN II-XII intact. Result Diagrams: 10/30/18 06:38 10/30/18 06:38 Additional Lab and Data: Laboratory Results - last 24 hr 10/27/18 10:59 Sodium 137 Potassium 4.7 Chloride 106 Carbon Dioxide 21 L Anion Gap 10 BUN 24 Creatinine 1.23 H Est GFR ( Amer) 73.1 Est GFR (Non-Af Amer) 60.4 BUN/Creatinine Ratio 19.5 Glucose 106 H Calcium 9.4 Magnesium 2.0 Iron 63 TIBC 272 % Saturation 23 Unsat Iron Binding < 257 Transferrin 194 L Ferritin 150.2 Total Bilirubin 1.00 AST 26 ALT 22 Alkaline Phosphatase 134 H Total Creatine Kinase 302 H Troponin I 0.00 Total Protein 6.9 Albumin 4.3 Globulin 2.6 Albumin/Globulin Ratio 1.7 Vitamin B12 189 Folate 4.38 TSH 0.67 Salicylates < 2.50 Acetaminophen < 15 Serum Alcohol < 10 Microbiology and Other Data: Microbiology 10/28/18 06:00 Nasal Nasal Screen MRSA (PCR) - Final Mrsa Not Detected Assess/Plan/Problems-Billing 58 year old gentleman with a history of Buerger's disease, DVT, HLD, anxiety and depression, reported Alcohol use who has had several recent admissions with worsening mental status. - Patient Problems (1) Altered mental status Current Visit: Yes Status: Acute Code(s): R41.82 - ALTERED MENTAL STATUS, UNSPECIFIED SNOMED Code(s): 865753680 Comment: - Patient presented to ED with AMS. Call was placed to [facility] by Dr Steinberg and staff report he was in his usual state of health until about 2 days ago when he became more altered. - Per nursing notes in chart from [facility] patient was having hallucinations. - Patient is having a fluctuating course, continue WAM and Vitamin Supplementation. - No need for Higher treatment dose of Thiamine. - MRI negative (2) Thrombocytosis Current Visit: Yes Status: Acute Comment: - Trending down - Could be acute phase reactant. - Appreciate Heme/Onc Consult, continue to trend (3) Toxic encephalopathy Current Visit: Yes Status: Acute Code(s): G92 - TOXIC ENCEPHALOPATHY SNOMED Code(s): 83733649 Comment: - AMS suspected to be secondary to toxic encephalopathy possible due to medications, alcohol or withdrawal. - Patient recently had medications changes with Xanax and Effexor which could have attributed to encephalopathy - EEG completed and shows no Epileptiform discharges - MRI ordered. - WAM ordered by psych. - Patient transferred to [facility] on 10/20 from the hospital and he has resided there until this admission. - Per collateral obtained from family by Dr Diehl, patient has not always been forth coming about drinking habits - Thiamine ordered per Neurology (4) Inability to ambulate due to left ankle or foot Current Visit: No Status: Acute Code(s): R26.2 - DIFFICULTY IN WALKING, NOT ELSEWHERE CLASSIFIED SNOMED Code(s): 638232134 Comment: - S/p left ankle ligament repair on 10/13/[address] Colon - NWB LLE per d/c summary from prior visit - Will need CRISELDA as returning home is not a safe discharge - Continue Percocet - Orthopedics will follow up to assess need for ongoing cast and NWB status. (5) Vitamin B 12 deficiency Current Visit: Yes Status: Acute Code(s): E53.8 - DEFICIENCY OF OTHER SPECIFIED B GROUP VITAMINS SNOMED Code(s): 539623014 Comment: - 189 - Replacement ordered (6) Anxiety and depression Current Visit: No Status: Acute Code(s): F41.9 - ANXIETY DISORDER, UNSPECIFIED; F32.9 - MAJOR DEPRESSIVE DISORDER, SINGLE EPISODE, UNSPECIFIED SNOMED Code(s): 914395633 Comment: - Given acute AMS changes made to medicataions per Psych: Routine Haldol and Wellbutrin discontinued, Xanax disontinued and WAM implemented. - Effexor continued, but at lower dose (7) Buerger's disease Current Visit: No Status: Acute Code(s): I73.1 - THROMBOANGIITIS OBLITERANS [BUERGER'S DISEASE] SNOMED Code(s): 60979725 Comment: - LLE only, s/p femoral, iliac, popliteal stenting and bypasses - Resume Pletal and Plavix. (8) History of DVT (deep vein thrombosis) Current Visit: No Status: Acute Code(s): Z86.718 - PERSONAL HISTORY OF OTHER VENOUS THROMBOSIS AND EMBOLISM SNOMED Code(s): 280652294 Comment: - Coumadin (9) Hyperlipidemia Current Visit: No Status: Acute Code(s): E78.5 - HYPERLIPIDEMIA, UNSPECIFIED SNOMED Code(s): 22122566 Comment: - Continue atorvastatin (10) Hypertension Current Visit: No Status: Acute Code(s): I10 - ESSENTIAL (PRIMARY) HYPERTENSION SNOMED Code(s): 39061614 Comment: - Normotensive - Continue lisinopril (11) DVT prophylaxis Current Visit: No Status: Acute Code(s): Z29.9 - ENCOUNTER FOR PROPHYLACTIC MEASURES, UNSPECIFIED SNOMED Code(s): 879615498 Comment: - Subtheraperutic on Coumadin - Continue dosing per pharmacy (12) Full code status Current Visit: No Status: Acute Code(s): Z78.9 - OTHER SPECIFIED HEALTH STATUS SNOMED Code(s): 581821179 Comment: Status and Disposition: Inpatient. Hopeful D/C soon back to Rehab.
--- NOTE | 2018-10-30 15:48 | CONSULT ---
Identification - Patient Identification Reason for Psychiatric Consultation: Other - Mental status change. -: Patient is a 58 year old, M admitted on 10/27/18. History - Objective HPI: Seen patient for a follow up psychiatric from our previous consult by Dr. Gallagher. Please review Dr. Gallagher's note for history. Today Mr. Castro appears to be doing fairly well without any psychiatric distress and he denies depressive, manic or psychotic symptoms. Slept fine last night and reports of a good appetite. But he has difficulty recollecting names, unable to tell where is he now. He thought he was in [place] but knew this was a hospital( didn't know the name of the hospital ). Denies SI or HI. Past Medical History: Wornecke's Encephalopathy,Delirium and possible Benzo withdrawal. Burger's disease, H/O DVT and HTN. Exam Appearance: Well Developed/Nourished Hygiene: Normal Grooming: Fairly Well Kept Psychomotor Activities: Normal Attitude and Relatedness: Appropriate Eye Contact: Good - Speech Quality: Unpressured Latencies: Normal Quantity: Appropriate Patient's Decription of Mood: "Good" Observed Affect: Good Affect Consistent with: Euphoria Patient's Thought Process: Coherent, Goal Directed Thought Content: No Passive Wish, No Suicidal Planning, No Homicidal Ideation, No Paranoid Ideation Experiencing Hallucinations: No, Sensorium is Clear Type of Hallucinations: Visual: No, Auditory: No, Command: No Level of Consciousness: Alert Orientation: Yes Orientated to Place, Yes Orientated to Person, No Intact, No Orientated to Time Impulse Control: Intact Insight and Judgement: Poor Impression - Impression Merits Inpatient Hospitalization: No Plan - Treatment Plan Continued Medication Management: Consider Medication Medications: Current Medications Acetaminophen (Tylenol Tab*) 650 mg PO Q4H PRN PRN Reason: FEVER/PAIN Atorvastatin Calcium (Lipitor*) 40 mg PO BEDTIME REPLACED BY [facility] Last Admin: 10/29/18 22:35 Dose: 40 mg Cilostazol (Pletal Tab*) 100 mg PO BID REPLACED BY [facility] Clopidogrel Bisulfate (Plavix Tab*) 75 mg PO DAILY REPLACED BY [facility] Cyanocobalamin (Vitamin B12 Tab*) 1,000 mcg PO DAILY REPLACED BY [facility] Last Admin: 10/30/18 10:21 Dose: 1,000 mcg Folic Acid (Folvite Tab*) 1 mg PO DAILY REPLACED BY [facility] Last Admin: 10/30/18 10:21 Dose: 1 mg Sodium Chloride (Ns 0.9% 1000 Ml) 1,000 mls @ 100 mls/hr IV PER RATE REPLACED BY [facility] Last Admin: 10/30/18 05:22 Dose: 100 mls/hr Lisinopril (Prinivil Tab*) 20 mg PO DAILY REPLACED BY [facility] Last Admin: 10/30/18 10:21 Dose: 20 mg Lorazepam (Ativan Tab(*)) 0 - 6 mg PO .PER WAM PROTOCOL REPLACED BY [facility]; Protocol Last Admin: 10/30/18 02:33 Dose: 5 mg Miscellaneous (Ativan Pyxis Aceves) 1 ea N/A .ATIVAN IV ACEVES PRN PRN Reason: PYXIS ACEVES Multivitamins/Minerals (Theragran/Minerals Tab*) 1 tab PO DAILY REPLACED BY [facility] Last Admin: 10/30/18 10:21 Dose: 1 tab Oxycodone/Acetaminophen (Percocet 5/325 Tab*) 1 tab PO Q8H PRN PRN Reason: Pain Last Admin: 10/28/18 02:31 Dose: 1 tab Pharmacy Profile Note (Coumadin Per Pharmacy*) 1 note FOLLOW UP .PER PHARMACY PROTOC REPLACED BY [facility]; Protocol Thiamine HCl (Vitamin B-1 Tab*) 100 mg PO DAILY REPLACED BY [facility] Last Admin: 10/30/18 10:21 Dose: 100 mg Venlafaxine HCl (Effexor Xr Cap*) 150 mg PO DAILY REPLACED BY [facility] Last Admin: 10/30/18 10:21 Dose: 150 mg Warfarin Sodium (Coumadin Tab(*)) 3 mg PO 1700 ONE Stop: 10/30/18 17:01 Ziprasidone (Geodon Im Inj*) 10 mg IM ONCE PRN PRN Reason: AGITATION Stop: 10/30/18 22:21 Last Admin: 10/29/18 22:53 Dose: 10 mg - Discharge Plan Discharge Plan: Outpatient Follow Up Outpatient Program: Counseling/Psych Services at [place]
[2018-10-30] MEDS ORDERED: Warfarin TAB(*) 3 MG PO ONE (17:00)
[2018-10-30] MEDS: Atorvastatin* 40 MG TAB PO SCH (21:14)
[2018-10-30] MEDS: Cilostazol TAB* 100 MG PO SCH (21:14)
[2018-10-31 05:49] LABS: INR 1.52 (0.82-1.09)
[2018-10-31 05:58] LABS: BUN/Creatinine Ratio 20.5 (8-20); Calcium 8.1 mg/dL (8.6-10.3); EGFR African American 123.7 (>60); EGFR Non-African American 102.2 (>60); Magnesium 1.8 mg/dL (1.9-2.7); Potassium 3.9 mmol/L (3.5-5.0)
[2018-10-31] MEDS ORDERED: LORazepam TAB(*) 1 MG PO PRN (07:42)
--- NOTE | 2018-10-31 07:43 | CONSULT ---
Consult Consult: Reason for consult: Altered mental status CC " I am better " Mr. Castro is a 58-year-old male with past history significant for Depression and Anxiety, hypertension, Buerger's disease, history of DVT, hyperlipidemia, peripheral neuropathy and recent left lateral ligament surgery who recently admitted to this hospital and was discharged on 10/20/18 to [place] For physical rehab. Patient showed improvement of cognition since my last encounter on Wednesday. Patient endorsed a drinking history of about 3 drinks a night of vodka. He stated that his last drink was more than a week ago before he went to [facility]. He reported that he doesnt plan on drinking after knowing how alcohol changes his behavior. He was unable to recall the events that led to his hospitalization. Mental Status Exam on Admission APPEARANCE : 58 year old in hospital room sitting calm in bed BEHAVIOR: cooperative EYE CONTACT: good PSYCHOMOTOR ACTIVITY: no psychomotor agitation MOVEMENTS: no abnormal movements SPEECH : Normal rate, rhythm, volume and tone. MOOD : "good " AFFECT : euythymic THOUGHT PROCESS: linear and goal directed THOUGHT CONTENT: no delusions PERCEPTION: not responding to internal stimuli SUICIDALITY: no suicidal ideation intent or plan HOMICIDALITY: no homicidal ideation intent or plan Insight/judgment: fair insight and judgment ORIENTATION: Oriented to self, location, or time. Diagnosis on Admission: Alcohol use disorder, Alcohol withdrawal in remission, Anxiolytic withdrawal in remission. Assessment: 58 year old male with history of depression, anxiety, and a history of alcohol abuse presents to the medical floor with acute mental status changes is now coherent displaying organized thought process. Patient no longer shows right eye lateral deviation. Plan # The patient doesnt requires inpatient psychiatric admission at this time. # [facility] protocol for alcohol withdrawal if not scoring for 3 consecutive 8 hour increments can discontinue. #Continue to monitor for signs of benzodiazepine withdrawal. #Continue Folate 1mg daily and thiamine 100mg daily # Continue effexor to 150mg daily # Medical management per medical team #Patient no longer requires 1:1 #Substance abuse resources offered and declined #Patient advised of the lethality of combining pain medications, alcohol and benzodiazepines. # Psychiatry will continue to follow patient. Please contact Psychiatry department if you have any questions.
[2018-10-31] MEDS: Multivitamins/Minerals TAB PO SCH (08:41)
[2018-10-31] MEDS: Folic Acid TAB* 1 MG PO SCH (08:41)
[2018-10-31] MEDS: Clopidogrel TAB* 75 MG PO SCH (08:42)
[2018-10-31] MEDS: Lisinopril TAB* 10 MG PO SCH (08:42)
[2018-10-31] MEDS: Thiamine TAB* 100 MG TAB PO SCH (08:42)
[2018-10-31] MEDS: Cilostazol TAB* 100 MG PO SCH ×2 (08:42→21:06)
[2018-10-31] MEDS: Venlafaxine EXT RELEASE CAP* 75 MG PO SCH (08:42)
[2018-10-31] MEDS: Enoxaparin(*) 40 MG/0.4 ML SYR SUBCUT SCH (08:42)
[2018-10-31] MEDS: Cyanocobalamin TAB* 500 MCG PO SCH (08:42)
--- NOTE | 2018-10-31 08:49 | PN ---
Subjective Date of Service: 10/31/18 Length of Stay: 4 Days Interval History: No need for [place] protocol since 4 yesterday. Doing better and slowly improving. This am, very pleasant, awake, alert, answering all questions and following commands. No new issues. Family History: Unchanged from Admission Social History: Unchanged from Admission Past Medical History: Unchanged from Admission Objective Active Medications: Acetaminophen (Tylenol Tab*) 650 mg PO Q4H PRN PRN Reason: FEVER/PAIN Atorvastatin Calcium (Lipitor*) 40 mg PO BEDTIME [facility] Last Admin: 10/30/18 21:14 Dose: 40 mg Cilostazol (Pletal Tab*) 100 mg PO BID [facility] Last Admin: 10/31/18 08:42 Dose: 100 mg Clopidogrel Bisulfate (Plavix Tab*) 75 mg PO DAILY [facility] Last Admin: 10/31/18 08:42 Dose: 75 mg Cyanocobalamin (Vitamin B12 Tab*) 1,000 mcg PO DAILY [facility] Last Admin: 10/31/18 08:42 Dose: 1,000 mcg Enoxaparin Sodium (Lovenox(*)) 40 mg SUBCUT Q24H [facility] Last Admin: 10/31/18 08:42 Dose: 40 mg Folic Acid (Folvite Tab*) 1 mg PO DAILY [facility] Last Admin: 10/31/18 08:41 Dose: 1 mg Lisinopril (Prinivil Tab*) 20 mg PO DAILY [facility] Last Admin: 10/31/18 08:42 Dose: 20 mg Lorazepam (Ativan Tab(*)) 1 mg PO Q8H PRN PRN Reason: ANXIETY Miscellaneous (Ativan Pyxis Aceves) 1 ea N/A .ATIVAN IV ACEVES PRN PRN Reason: PYXIS ACEVES Multivitamins/Minerals (Theragran/Minerals Tab*) 1 tab PO DAILY [facility] Last Admin: 10/31/18 08:41 Dose: 1 tab Oxycodone/Acetaminophen (Percocet 5/325 Tab*) 1 tab PO Q8H PRN PRN Reason: Pain Last Admin: 10/28/18 02:31 Dose: 1 tab Pharmacy Profile Note (Coumadin Per Pharmacy*) 1 note FOLLOW UP .PER PHARMACY PROTOC [facility]; Protocol Thiamine HCl (Vitamin B-1 Tab*) 100 mg PO DAILY [facility] Last Admin: 10/31/18 08:42 Dose: 100 mg Venlafaxine HCl (Effexor Xr Cap*) 150 mg PO DAILY [facility] Last Admin: 10/31/18 08:42 Dose: 150 mg Warfarin Sodium (Coumadin Tab(*)) 3 mg PO ONCE ONE Stop: 10/31/18 17:01 Vital Signs 10/30/18 10/30/18 10/30/18 10:15 12:12 14:20 Temperature Pulse Rate 68 58 79 Respiratory Rate Blood Pressure 130/65 134/63 117/55 (mmHg) O2 Sat by Pulse Oximetry 10/30/18 10/30/18 10/30/18 16:04 16:16 18:05 Temperature 98.5 F Pulse Rate 71 79 Respiratory 16 16 Rate Blood Pressure 120/74 127/66 (mmHg) O2 Sat by Pulse 98 Oximetry 10/30/18 10/30/18 10/30/18 18:51 20:00 20:19 Temperature 98.7 F Pulse Rate 79 Respiratory 16 16 16 Rate Blood Pressure 125/60 (mmHg) O2 Sat by Pulse 97 Oximetry 10/30/18 10/31/18 10/31/18 22:00 00:15 02:05 Temperature 97.5 F 98.3 F Pulse Rate 83 80 Respiratory 16 16 16 Rate Blood Pressure 139/79 139/70 (mmHg) O2 Sat by Pulse 96 Oximetry 10/31/18 04:09 Temperature 97.8 F Pulse Rate 80 Respiratory 16 Rate Blood Pressure 146/80 (mmHg) O2 Sat by Pulse 94 Oximetry Intake and Output Last 24 Hours 10/29/18 10/30/18 10/31/18 11/01/18 06:59 06:59 06:59 06:59 Intake Total 1155 3583 3525 Output Total 1050 1580 Balance 1155 6133 1945 Weight 159 lb 3.2 oz Intake: IV Fluids 3361 2480 NS 2312 2480 thiamine 1049 IVPB 255 252 55 Mag 55 thiamine 255 252 Oral 900 3570 990 Output: Urine 1050 1580 Other: Estimated Void Medium Large # Bowel Movements 2 0 Estimated Stool Amount Large # Voids 1 4 Oxygen Devices in Use Now: None Neurology Exam: General: Well nourished, well developed, and in no acute distress HEENT: Normocephalic/atraumatic, sclera anicteric, mucous membranes moist Neck: Supple Chest: Clear to auscultation bilaterally Cardiovascular: Regular rate and rhythm without murmurs, rubs, gallops Abdomen: Soft, non-tender/non-distended Neurological Findings: Awake, alert, and oriented to person, place, and time. Speech: fluent without dysarthria, repetition intact Cranial Nerve: PERRL, EOM intact, VFF, no nystagmus, face symmetric bilaterally , facial sensation intact, hearing intact to finger rub bilaterally, palate elevates symmetrically, tongue midline, SCM and Trapezius s/s. Motor: 5/5 throughout, proximal and distal extremities x4 tone/bulk normal Sensation:grossly intact to LT/PP Deep Tendon Reflex: 2+ symmetric in the upper/lower extremities Tremulous but no resting tremor, mild intention tremor bilaterally Result Diagrams: 10/30/18 06:38 10/31/18 05:34 Additional Lab and Data: Laboratory Results - last 24 hr 10/27/18 10:59 Sodium 137 Potassium 4.7 Chloride 106 Carbon Dioxide 21 L Anion Gap 10 BUN 24 Creatinine 1.23 H Est GFR ( Amer) 73.1 Est GFR (Non-Af Amer) 60.4 BUN/Creatinine Ratio 19.5 Glucose 106 H Calcium 9.4 Magnesium 2.0 Iron 63 TIBC 272 % Saturation 23 Unsat Iron Binding < 257 Transferrin 194 L Ferritin 150.2 Total Bilirubin 1.00 AST 26 ALT 22 Alkaline Phosphatase 134 H Total Creatine Kinase 302 H Troponin I 0.00 Total Protein 6.9 Albumin 4.3 Globulin 2.6 Albumin/Globulin Ratio 1.7 Vitamin B12 189 Folate 4.38 TSH 0.67 Salicylates < 2.50 Acetaminophen < 15 Serum Alcohol < 10 Microbiology and Other Data: Microbiology 10/28/18 06:00 Nasal Nasal Screen MRSA (PCR) - Final Mrsa Not Detected Assessment/Plan 58 year old gentleman with a history of Buerger's disease, DVT, HLD, anxiety and depression, reported Alcohol use who has had several recent admissions with worsening mental status. --AMS: Much improved: --Suspect Toxic encephalopathy: Multifactorial: recent illnesses, multiple medication changes, +/- BZD withdraw, +/- recent/history of EtOH use --No evidence of seizure or stroke --Supplement Thiamin and F.A --B12 replacement From neurologic perspective, he is much improved. Will sign off for now. Continue supportive care. We are available with any new issues or concerns. Thank you for the opportunity to participate in his care.
--- NOTE | 2018-10-31 13:27 | PN ---
Progress Note - Progress Note Date of Service: 10/31/18 SOAP: Subjective: []William was seen at beside. He feels well without fever, chills, CP, SOB, dizziness. Cast is comfortable, patient has no questions today. Objective: []General: Appears well, NAD LLE: Short leg fiberglass cast CDI with ankle in neutral position. F/E at MTPs intact, sensation intact to light touch and capillary refill less than two seconds distally Assessment: [] S/P left ankle Bromstrom and peroneal tenosynovectomy 10/13/18 Dr Colon Plan: []NWB LLE No evidence of infection, sutures removed and cast placed 10/27/[address] Colon in 1 month, 11/27/18 Vital Signs Temp 97.5 F 10/31/18 08:08 Pulse 100 10/31/18 08:08 Resp 18 10/31/18 08:08 BP 127/81 10/31/18 08:08 Pulse Ox 97 10/31/18 08:08 Intake & Output 10/30/18 10/31/18 10/31/18 18:59 06:59 18:59 Intake Total 2940 585 Output Total 580 1000 Balance 2360 -415 Intake: IV Fluids 1895 585 NS 1895 585 IVPB 55 Mag 55 Oral 990 0 Output: Urine 580 1000 Other: # Bowel Movements 0 Laboratory Last Values WBC 6.0 10^3/uL (3.5-10.8) 10/30/18 06:38 RBC 3.63 10^6 /uL (4.18-5.48) L 10/30/18 06:38 Hgb 12.6 g/dL (14.0-18.0) L 10/30/18 06:38 Hct 36 % (42-52) L 10/30/18 06:38 MCV 100 fL (80-94) H 10/30/18 06:38 MCH 35 pg (27-31) H 10/30/18 06:38 MCHC 35 g/dL (31-36) 10/30/18 06:38 RDW 15 % (10.5-15) 10/30/18 06:38 Plt Count 653 10^3/uL (150-450) H 10/30/18 06:38 MPV 6.6 fL (7.4-10.4) L 10/30/18 06:38 Neut % (Auto) 56.7 % 10/30/18 06:38 Lymph % (Auto) 31.6 % 10/30/18 06:38 [place] % (Auto) 6.0 % 10/30/18 06:38 Eos % (Auto) 5.1 % 10/30/18 06:38 Baso % (Auto) 0.6 % 10/30/18 06:38 Absolute Neuts (auto) 3.4 10^3/ul (1.5-7.7) 10/30/18 06:38 Absolute Lymphs (auto) 1.9 10^3/ul (1.0-4.8) 10/30/18 06:38 Absolute Monos (auto) 0.4 10^3/ul (0-0.8) 10/30/18 06:38 Absolute Eos (auto) 0.3 10^3/ul (0-0.6) 10/30/18 06:38 Absolute Basos (auto) 0.0 10^3/ul (0-0.2) 10/30/18 06:38 Absolute Nucleated RBC 0.0 10^3/ul 10/30/18 06:38 Nucleated RBC % 0.1 10/30/18 06:38 INR (Anticoag Therapy) 1.52 (0.82-1.09) H 10/31/18 05:34 Sodium 137 mmol/L (135-145) 10/31/18 05:34 Potassium 3.9 mmol/L (3.5-5.0) 10/31/18 05:34 Chloride 110 mmol/L (101-111) 10/31/18 05:34 Carbon Dioxide 23 mmol/L (22-32) 10/31/18 05:34 Anion Gap 4 mmol/L (2-11) 10/31/18 05:34 BUN 16 mg/dL (6-24) 10/31/18 05:34 Creatinine 0.78 mg/dL (0.67-1.17) 10/31/18 05:34 Est GFR ( Amer) 123.7 (>60) 10/31/18 05:34 Est GFR (Non-Af Amer) 102.2 (>60) 10/31/18 05:34 BUN/Creatinine Ratio 20.5 (8-20) H 10/31/18 05:34 Glucose 101 mg/dL (70-100) H 10/31/18 05:34 Lactic Acid 0.6 mmol/L (0.5-2.0) 10/27/18 10:59 Calcium 8.1 mg/dL (8.6-10.3) L 10/31/18 05:34 Magnesium 1.8 mg/dL (1.9-2.7) L 10/31/18 05:34 Iron 63 ug/dL (50-212) 10/27/18 10:59 TIBC 272 mcg/dL (250-450) 10/27/18 10:59 % Saturation 23 % (15-55) 10/27/18 10:59 Unsat Iron Binding < 257 ug/dL 10/27/18 10:59 Transferrin 194 mg/dL (203-362) L 10/27/18 10:59 Ferritin 150.2 ng/mL (24-336) 10/27/18 10:59 Total Bilirubin 1.00 mg/dL (0.2-1.0) 10/27/18 10:59 AST 26 U/L (13-39) 10/27/18 10:59 ALT 22 U/L (7-52) 10/27/18 10:59 Alkaline Phosphatase 134 U/L (34-104) H 10/27/18 10:59 Ammonia 41 mcmol/L (16-53) 10/27/18 10:59 Total Creatine Kinase 302 U/L (10-223) H 10/27/18 10:59 Troponin I 0.00 ng/mL (<0.04) 10/27/18 10:59 Total Protein 6.9 g/dL (6.4-8.9) 10/27/18 10:59 Albumin 4.3 g/dL (3.2-5.2) 10/27/18 10:59 Globulin 2.6 g/dL (2-4) 10/27/18 10:59 Albumin/Globulin Ratio 1.7 (1-3) 10/27/18 10:59 Vitamin B12 189 pg/mL (180-914) 10/27/18 10:59 Folate 4.38 ng/mL (>3.99) 10/27/18 10:59 TSH 0.67 mcIU/mL (0.34-5.60) 10/27/18 10:59 Urine Color Domenica 10/27/18 12:04 Urine Appearance Cloudy 10/27/18 12:04 Urine pH 5.0 (5-9) 10/27/18 12:04 Ur Specific [place] 1.023 (1.010-1.030) 10/27/18 12:04 Urine Protein Negative (Negative) 10/27/18 12:04 Urine Ketones 1+ (Negative) A 10/27/18 12:04 Urine Blood Negative (Negative) 10/27/18 12:04 Urine Nitrate Negative (Negative) 10/27/18 12:04 Urine Bilirubin Negative (Negative) 10/27/18 12:04 Urine Urobilinogen Negative (Negative) 10/27/18 12:04 Ur Leukocyte Esterase Negative (Negative) 10/27/18 12:04 Urine Glucose Negative (Negative) 10/27/18 12:04 Salicylates < 2.50 mg/dL (<30) 10/27/18 10:59 Urine Opiates Screen None detected (None Detect) 10/27/18 12:04 Acetaminophen < 15 mcg/mL 10/27/18 10:59 Ur Barbiturates Screen None detected (None Detect) 10/27/18 12:04 Ur Phencyclidine Scrn None detected (None Detect) 10/27/18 12:04 Ur Amphetamines Screen Presumptive positive (None Detect) A 10/27/18 12:04 U Benzodiazepines Scrn Presumptive positive (None Detect) A 10/27/18 12:04 Urine Cocaine Screen None detected (None Detect) 10/27/18 12:04 U Cannabinoids Screen None detected (None Detect) 10/27/18 12:04 Serum Alcohol < 10 mg/dL (<10) 10/27/18 10:59
--- NOTE | 2018-10-31 14:48 | CONS ---
CONSULTATION REPORT: DATE OF CONSULT: 10/27/18 ATTENDING PHYSICIAN: Bala Colon MD, who saw and examined the patient in the emergency room and his full dictation is in [employer]. I am dictating this visit into [facility] to provide record of this visit in both systems. CHIEF COMPLAINT: Postop visit, status post left ankle Brostrom and peroneal tenosynovectomy. Date of surgery, 10/13/18. HISTORY OF PRESENT ILLNESS: William is a 58-year-old male, who Dr. Colon and I saw in the emergency room for a post op check when he present with acute psychosis. He reports no pain at the ankle. PHYSICAL EXAM: 5/5 motor strength. Sensation is intact to light touch. The foot is warm and well perfused. Wound closed and dry without erythema, fluctuance, drainage, or other evidence of infection. Skin is intact to inspection and palpation without evidence of infection or RSD. IMPRESSION AND PLAN: Satisfactory postoperative course. Sutures removed wound redressed, placed in a short leg fiberglass cast with ankle in a neutral position. He will remain nonweightbearing LLE. Dr. Colon will see him back in 1 month, roughly 11/27/18. All questions were answered. SHIVAM ANGUIANO [id number]/CPS #: [id number] MTDD
--- NOTE | 2018-10-31 15:22 | PN ---
Subjective Date of Service: 10/31/18 Interval History: Patient is feeling well, patient denies CP, SOB, dizziness, N/V, abdominal pain , diarrhea, F/C, dysuria, or other pain. Patient refuses return to rehab. Patient would like to go back to his apartment. Family History: Unchanged from Admission Social History: Unchanged from Admission Past Medical History: Unchanged from Admission Objective Active Medications: Acetaminophen (Tylenol Tab*) 650 mg PO Q4H PRN PRN Reason: FEVER/PAIN Atorvastatin Calcium (Lipitor*) 40 mg PO BEDTIME [facility] Last Admin: 10/30/18 21:14 Dose: 40 mg Cilostazol (Pletal Tab*) 100 mg PO BID [facility] Last Admin: 10/31/18 08:42 Dose: 100 mg Clopidogrel Bisulfate (Plavix Tab*) 75 mg PO DAILY [facility] Last Admin: 10/31/18 08:42 Dose: 75 mg Cyanocobalamin (Vitamin B12 Tab*) 1,000 mcg PO DAILY [facility] Last Admin: 10/31/18 08:42 Dose: 1,000 mcg Enoxaparin Sodium (Lovenox(*)) 40 mg SUBCUT Q24H [facility] Last Admin: 10/31/18 08:42 Dose: 40 mg Folic Acid (Folvite Tab*) 1 mg PO DAILY [facility] Last Admin: 10/31/18 08:41 Dose: 1 mg Lisinopril (Prinivil Tab*) 20 mg PO DAILY [facility] Last Admin: 10/31/18 08:42 Dose: 20 mg Lorazepam (Ativan Tab(*)) 1 mg PO Q8H PRN PRN Reason: ANXIETY Miscellaneous (Ativan Pyxis Omya) 1 ea N/A .ATIVAN IV MOYA PRN PRN Reason: PYXIS MOYA Multivitamins/Minerals (Theragran/Minerals Tab*) 1 tab PO DAILY [facility] Last Admin: 10/31/18 08:41 Dose: 1 tab Oxycodone/Acetaminophen (Percocet 5/325 Tab*) 1 tab PO Q8H PRN PRN Reason: Pain Last Admin: 10/28/18 02:31 Dose: 1 tab Pharmacy Profile Note (Coumadin Per Pharmacy*) 1 note FOLLOW UP .PER PHARMACY PROTOC [facility]; Protocol Thiamine HCl (Vitamin B-1 Tab*) 100 mg PO DAILY [facility] Last Admin: 10/31/18 08:42 Dose: 100 mg Venlafaxine HCl (Effexor Xr Cap*) 150 mg PO DAILY [facility] Last Admin: 10/31/18 08:42 Dose: 150 mg Warfarin Sodium (Coumadin Tab(*)) 3 mg PO ONCE ONE Stop: 10/31/18 17:01 Vital Signs - 8 hr 10/31/18 10/31/18 10/31/18 08:00 08:08 11:25 Temperature 97.5 F 98.4 F Pulse Rate 100 92 Respiratory 16 18 18 Rate Blood Pressure 127/81 135/75 (mmHg) O2 Sat by Pulse 97 98 Oximetry Oxygen Devices in Use Now: None Appearance: Patient is a 58yo male who appears stated age and is sitting in the bed in NAD. Eyes: No Scleral Icterus, PERRLA Ears/Nose/Mouth/Throat: NL Teeth, Lips, Gums, Clear Oropharnyx, Mucous Membranes Moist Neck: NL Appearance and Movements; NL JVP, Trachea Midline Respiratory: Symmetrical Chest Expansion and Respiratory Effort, Clear to Auscultation Cardiovascular: NL Sounds; No Murmurs; No JVD, RRR, No Edema Abdominal: NL Sounds; No Tenderness; No Distention, No Hepatosplenomegaly Lymphatic: No Cervical Adenopathy Extremities: No Edema, No Clubbing, Cyanosis, - - LLE cast with good distal perfusion. Skin: No Nodules or Sclerosis, - - Bruising on abdomen in various stages of healing. Neurological: Alert and Oriented x 3, NL Sensation, NL Muscle Strength and Tone , - - CN II-XII intact. Result Diagrams: 10/30/18 06:38 10/31/18 05:34 Additional Lab and Data: Laboratory Results - last 24 hr 10/27/18 10:59 Sodium 137 Potassium 4.7 Chloride 106 Carbon Dioxide 21 L Anion Gap 10 BUN 24 Creatinine 1.23 H Est GFR ( Amer) 73.1 Est GFR (Non-Af Amer) 60.4 BUN/Creatinine Ratio 19.5 Glucose 106 H Calcium 9.4 Magnesium 2.0 Iron 63 TIBC 272 % Saturation 23 Unsat Iron Binding < 257 Transferrin 194 L Ferritin 150.2 Total Bilirubin 1.00 AST 26 ALT 22 Alkaline Phosphatase 134 H Total Creatine Kinase 302 H Troponin I 0.00 Total Protein 6.9 Albumin 4.3 Globulin 2.6 Albumin/Globulin Ratio 1.7 Vitamin B12 189 Folate 4.38 TSH 0.67 Salicylates < 2.50 Acetaminophen < 15 Serum Alcohol < 10 Microbiology and Other Data: Microbiology 10/28/18 06:00 Nasal Nasal Screen MRSA (PCR) - Final Mrsa Not Detected Assess/Plan/Problems-Billing 58 year old gentleman with a history of Buerger's disease, DVT, HLD, anxiety and depression, reported Alcohol use who has had several recent admissions with worsening mental status. --AMS: Much improved: --Suspect Toxic encephalopathy: Multifactorial: recent illnesses, multiple medication changes, +/- BZD withdraw, +/- recent/history of EtOH use --No evidence of seizure or stroke --Supplement Thiamin and F.A --B12 replacement From neurologic perspective, he is much improved. Will sign off for now. Continue supportive care. We are available with any new issues or concerns. Thank you for the opportunity to participate in his care. - Patient Problems (1) Altered mental status Current Visit: Yes Status: Acute Code(s): R41.82 - ALTERED MENTAL STATUS, UNSPECIFIED SNOMED Code(s): 641633604 Comment: - Patient presented to ED with AMS. Call was placed to [facility] by Dr Steinberg and staff report he was in his usual state of health until about 2 days ago when he became more altered. - Per nursing notes in chart from [facility] patient was having hallucinations. - Patient is having a fluctuating course, but now appears to be back to baseline. - No need for Higher treatment dose of Thiamine. - MRI negative (2) Thrombocytosis Current Visit: Yes Status: Acute Comment: - Trending down - Could be acute phase reactant. - Appreciate Heme/Onc Consult, continue to trend (3) Toxic encephalopathy Current Visit: Yes Status: Acute Code(s): G92 - TOXIC ENCEPHALOPATHY SNOMED Code(s): 68586968 Comment: - AMS suspected to be secondary to toxic encephalopathy possible due to medications, alcohol or withdrawal. - Patient recently had medications changes with Xanax and Effexor which could have attributed to encephalopathy - EEG completed and shows no Epileptiform discharges - MRI shows no concern for CVA - WAM ordered by psych, now discontinued as patient is no longer requiring ativan - Patient transferred to [facility] on 10/20 from the hospital and he has resided there until this admission. - Per collateral obtained from family by Dr Diehl, patient has not always been forth coming about drinking habits - Thiamine ordered per Neurology, at supplemental not treatment dose. - Continue only ativan 1mg PO Q8H for anxiety. (4) Inability to ambulate due to left ankle or foot Current Visit: No Status: Acute Code(s): R26.2 - DIFFICULTY IN WALKING, NOT ELSEWHERE CLASSIFIED SNOMED Code(s): 904128629 Comment: - S/p left ankle ligament repair on 10/13/[address] Colon - NWB LLE per d/c summary from prior visit - Will obtain a rolling scooter and has been assessed by PT who says he will be able to go home if he gets a rolling scooter. - Continue Percocet - Orthopedics will follow up to assess need for ongoing cast and NWB status. (5) Vitamin B 12 deficiency Current Visit: Yes Status: Acute Code(s): E53.8 - DEFICIENCY OF OTHER SPECIFIED B GROUP VITAMINS SNOMED Code(s): 589722200 Comment: - 189 - Replacement ordered (6) Anxiety and depression Current Visit: No Status: Acute Code(s): F41.9 - ANXIETY DISORDER, UNSPECIFIED; F32.9 - MAJOR DEPRESSIVE DISORDER, SINGLE EPISODE, UNSPECIFIED SNOMED Code(s): 231535342 Comment: - Given acute AMS changes made to medicataions per Psych: Routine Haldol and Wellbutrin discontinued, Xanax discontinued - Now off WAM and home dose Effexor and PRN ativan. - Effexor continued, but at lower dose (7) Buerger's disease Current Visit: No Status: Acute Code(s): I73.1 - THROMBOANGIITIS OBLITERANS [BUERGER'S DISEASE] SNOMED Code(s): 52115615 Comment: - LLE only, s/p femoral, iliac, popliteal stenting and bypasses - Resume Pletal and Plavix. - Bridge while subtherapeutic on coumadin. (8) History of DVT (deep vein thrombosis) Current Visit: No Status: Acute Code(s): Z86.718 - PERSONAL HISTORY OF OTHER VENOUS THROMBOSIS AND EMBOLISM SNOMED Code(s): 334279399 Comment: - Coumadin (9) Hyperlipidemia Current Visit: No Status: Acute Code(s): E78.5 - HYPERLIPIDEMIA, UNSPECIFIED SNOMED Code(s): 78620653 Comment: - Continue atorvastatin (10) Hypertension Current Visit: No Status: Acute Code(s): I10 - ESSENTIAL (PRIMARY) HYPERTENSION SNOMED Code(s): 61969719 Comment: - Normotensive - Continue lisinopril (11) DVT prophylaxis Current Visit: No Status: Acute Code(s): Z29.9 - ENCOUNTER FOR PROPHYLACTIC MEASURES, UNSPECIFIED SNOMED Code(s): 633779099 Comment: - Subtheraperutic on Coumadin, will bridge with Lovenox - Continue dosing per pharmacy (12) Full code status Current Visit: No Status: Acute Code(s): Z78.9 - OTHER SPECIFIED HEALTH STATUS SNOMED Code(s): 849763589 Comment: Status and Disposition: Inpatient. Hopeful D/C to home tomorrow.
[2018-10-31] MEDS ORDERED: Warfarin TAB(*) 3 MG PO ONE (17:00)
[2018-10-31] MEDS: Atorvastatin* 40 MG TAB PO SCH (21:06)
[2018-11-01 05:59] LABS: INR 1.5 (0.82-1.09)
[2018-11-01] MEDS: Clopidogrel TAB* 75 MG PO SCH (08:31)
[2018-11-01] MEDS: Lisinopril TAB* 10 MG PO SCH (08:31)
[2018-11-01] MEDS: Folic Acid TAB* 1 MG PO SCH (08:31)
[2018-11-01] MEDS: Enoxaparin(*) 40 MG/0.4 ML SYR SUBCUT SCH (08:31)
[2018-11-01] MEDS: Multivitamins/Minerals TAB PO SCH (08:32)
[2018-11-01] MEDS: Thiamine TAB* 100 MG TAB PO SCH (08:32)
[2018-11-01] MEDS: Venlafaxine EXT RELEASE CAP* 75 MG PO SCH (08:32)
[2018-11-01] MEDS: Cyanocobalamin TAB* 500 MCG PO SCH (08:32)
[2018-11-01] MEDS: Cilostazol TAB* 100 MG PO SCH (08:32)
[2018-11-01 09:52] VITALS: BP 141/73
--- NOTE | 2018-11-01 10:10 | CONSULT ---
Consult Consult: Reason for consult: Follow up for Altered mental status CC "I am ready to go home" Mr. Castro is a 58-year-old male with past history significant for Depression and Anxiety, hypertension, Buerger's disease, history of DVT, hyperlipidemia, peripheral neuropathy and recent left lateral ligament surgery who recently admitted to this hospital and was discharged on 10/20/18 to [place] [facility] physical rehab. Patient explains how he plans to go back to live at his apartment and work on physical rehabilitation. He stated that he usually takes xanax as needed and never took it 4 times a day , and on average takes it twice a week. He plans to stop drinking alcohol. He denied suicidal ideation intent or plan. He looks forward to going to live at his apartment. Mental Status Exam on Admission APPEARANCE : 58 year old male in hospital room sitting calm in bed BEHAVIOR: cooperative EYE CONTACT: good PSYCHOMOTOR ACTIVITY: no psychomotor agitation MOVEMENTS: no abnormal movements SPEECH : Normal rate, rhythm, volume and tone. MOOD : "fine " AFFECT : euthymic THOUGHT PROCESS: linear and goal directed THOUGHT CONTENT: no delusions PERCEPTION: not responding to internal stimuli SUICIDALITY: no suicidal ideation intent or plan HOMICIDALITY: no homicidal ideation intent or plan Insight/judgment: fair insight and judgment ORIENTATION: Oriented to self, location, or time. Diagnosis on Admission: Alcohol use disorder, Alcohol withdrawal in remission, Anxiolytic withdrawal in remission. Assessment: 58 year old male with history of depression, anxiety, and a history of alcohol abuse presents to the medical floor with acute mental status changes is now coherent displaying organized thought process. Patient no longer shows right eye lateral deviation. Plan # The patient doesnt requires inpatient psychiatric admission at this time. # [facility] protocol for alcohol withdrawal if not scoring for 3 consecutive 8 hour increments can discontinue. #Continue to monitor for signs of benzodiazepine withdrawal. #Continue Folate 1mg daily and thiamine 100mg daily and can continue for 5 days upon discharge # Continue effexor to 150mg daily # Medical management per medical team #Patient no longer requires 1:1 #Substance abuse resources offered and declined #Patient advised of the lethality of combining pain medications, alcohol and benzodiazepines. #Patient advised about mental health services in the community and importance of follow up care. # Psychiatry will continue to follow patient until discharged. Please contact Psychiatry department if you have any questions.
--- NOTE | 2018-11-03 04:10 | DS ---
CC: Dr. Frank Hardy * DISCHARGE SUMMARY: DATE OF ADMISSION: 10/27/18 DATE OF DISCHARGE: 11/01/18 PRIMARY CARE PROVIDER: Dr. Frank Hardy. MY ATTENDING WHILE IN THE HOSPITAL: Dr. Sami Bautista.* (DICTATED BY SHIVAM EVANS) PRIMARY DISCHARGE DIAGNOSIS: Delirium, probable benzodiazepine withdrawal, possible alcohol withdrawal. SECONDARY DISCHARGE DIAGNOSES: 1. Hypertension. 2. Buerger disease. 3. History of DVT, on chronic anticoagulation. 4. Hyperlipidemia. 5. Depression. 6. Anxiety. 7. Peripheral neuropathy. 8. History of alcohol abuse. STUDIES DONE WHILE IN THE HOSPITAL: Brain CT from 10/27/18 read as no acute intracranial pathology. Chest x-ray from 10/27/18 read as no active cardiopulmonary disease noted. Brain MRI from 10/29/18 read as no acute intracranial pathology. Electroencephalogram from 10/28/18 read as abnormal awake and drowsy EEG, just slow posterior dominant rhythm, otherwise there was retained organization reactivity. Findings are suggestive of a mild nonspecific encephalopathy. Please note that the pathology technologist as well as the video recording specialist recorded the patient whole body twitching, fighting the aide, lifting the legs, shaking, and hallucinating. These were not clearly associated with any epileptiform discharges. However, the quality of the study could be limited due to motion artifact. MEDICATIONS AT DISCHARGE: 1. Pletal 100 mg p.o. b.i.d. 2. Warfarin 3.5 mg p.o. daily. 3. Venlafaxine 150 mg p.o. b.i.d. 4. Percocet 5/325 mg 1 tablet p.o. q.4 hours as needed. 5. Lisinopril 20 mg p.o. daily. 6. Lovenox 80 mg subcutaneous b.i.d. 7. Voltaren 1% topical t.i.d. as needed. 8. Plavix 75 mg p.o. daily. 9. Wellbutrin 150 mg p.o. b.i.d. 10. Lipitor 40 mg p.o. at bedtime. 11. Thiamine 100 mg p.o. daily. 12. Multivitamin 1 tablet p.o. daily. 13. Lorazepam 1 mg p.o. q.8 hours as needed for anxiety. 14. Folic acid 1 mg p.o. daily. 15. Vitamin B12 1000 mcg p.o. daily. 16. Tylenol 650 mg p.o. q.4 hours as needed. Medications discontinued at discharge: None. New medications at discharge: 1. Lovenox 100 mg subcutaneous b.i.d. 2. Thiamine 100 mg p.o. b.i.d. 3. Folic acid 1 mg p.o. daily. HOSPITAL COURSE: This is a brief summary of the patient's presentation. For more details, please see the history and physical from Elayne Anna NP, on 10/27/18. In brief, the patient is a 58-year-old male with past medical history significant for the above, who presented to the emergency department after 2 recent hospitalizations, one of which he had peroneus brevis and longus tendon repair with ligamentous reconstruction from which he was discharged home. The patient fell several times at home and then returned to hospital and then he was subsequently discharged to [facility]. The patient was doing well at rehab and the plan was for him to go home; however, patient at that time began to have increased anxiety and altered mental status, making nonsensical comments, shaking, and being combative with the staff at [facility]. The patient was sent to the hospital. The patient in the hospital it was believed that this was due to benzodiazepine or surreptitious alcohol use and subsequent withdrawal. The patient was admitted to the hospital and placed on the WAM protocol. The patient initially had very difficult to control symptoms, however , patient had negative electroencephalogram with negative brain MRI as above. The patient was seen in consultation by Dr. Austin Brand of Neurology, who gave patient IV thiamine; however, thiamine treatment dose for Wernicke's was not continued due to patient's significant improvement. Psychiatry recommended continuation of WAM protocol and decrease of patient's other psychoactive medications. The patient again had a fluctuating course. The patient had severe thrombocytosis on admission, which trended down. The patient was significantly supratherapeutic on his Coumadin. On 10/29/18, his Plavix and Pletal were stopped, and then his INR abruptly decreased to 1.85. The patient was bridged with full dose Lovenox as he had been previously for this given his heart risk for DVT while in the hospital. The patient's mental status improved greatly from 10/29/18 to 11/01/18 with a fluctuating course. The patient's cast had been changed by Orthopedics when he was admitted to the hospital and he remained nonweightbearing on his leg. The patient, on 10/31/18, was competent and refused return to rehab. The patient was seen in consultation by Physical Therapy who said that he would be safe to go home and maintain nonweightbearing status on his left leg. As he was to have a rolling scooter, this was arranged for him, and the patient was stable and therefore discharged home on 11/01/18. PHYSICAL EXAMINATION ON THE DAY OF DISCHARGE: General: The patient is a 58- year- old male, who appears stated age and sitting comfortably in bed, in no acute distress. Vital Signs: At the time of discharge, temperature 97.8, pulse rate 80, respiratory rate 16, oxygen saturation 97% on room air, blood pressure 141/73. HEENT: Normocephalic and atraumatic. Sclerae anicteric. No conjunctival injection. Nasal mucosa moist. Oral mucosa moist. No pharyngeal erythema, discharge, or exudate. Neck: Supple, nontender. No lymphadenopathy. No carotid bruits auscultated. No JVD. Cardiac: Regular rate and rhythm. No clicks, murmurs, gallops, or rubs. Pulses 2+ in the bilateral dorsalis pedis, posterior tibialis, and radial areas. Respiratory: Clear to auscultation bilaterally. No wheezes, rales, or rhonchi. Good air exchange bilaterally. Abdomen: Soft, nontender, nondistended. Bowel sounds present. Normoactive in all 4 quadrants. No hepatosplenomegaly. No abdominal bruits auscultated. No hepatojugular reflux. Genitourinary: No suprapubic or CVA tenderness. Skin: Bruising in various stage of healing across the patient' s body. Neuro: Cranial nerves II through XII intact. No focal deficits. Alert and oriented x3. Psychiatric: Pleasant and cooperative. DISCHARGE PLAN: The patient will be discharged to home. The patient refused return to rehab, and Physical Therapy consultation deemed him adequately safe to return home with knee scooter, which he picked up through [facility] on his way home. The patient will be given lower dose Ativan to be taken as needed. This is a long-term prescription and may be continued through his primary care provider at their discretion. Given the patient's history of alcohol abuse, he may be at greater risk to abuse this medication as well and seemingly had very severe withdrawal from its decrease without sufficient tapering. The patient is to follow up with his primary care provider in 1 week for general medical management. The patient will follow with the [facility] as soon as possible for repeat INR. The patient will be bridged with Lovenox until that time. The patient's INR on the day of discharge was 1.5. The patient should have a regular diet. The patient will be continued on his Pletal, Plavix, and Coumadin for his Buerger's disease. The patient will be continued on thiamine, folic acid, and vitamin B12 supplementation as above. The patient did have a slightly elevated methylmalonic acid in the hospital and his low B12 level may have been contributing to his altered mental status. The patient should return to the hospital for passing out, chest pains , severe altered mental status, or other alarming symptoms. TIME SPENT: Approximately 60 minutes was spent on this discharge of this patient, 30 of which was spent [id number] with the patient obtaining history and physical and discussing treatment plan. SHIVAM EVANS [id number]/[facility] #: [id number] DANIELA
== END 2018-11-01 11:30 | disposition home health service (06) | DRG 896 ==
LOC: ED 09:58 → MED 15:52
PROVIDERS: ADMIT Internal Medicine; ATTEND Internal Medicine
DX: F19.231 Other psychoactive substance dependence with withdrawal delirium (principal); G92 Toxic encephalopathy; F10.231 Alcohol dependence with withdrawal delirium; I73.1 Thromboangiitis obliterans [Buerger's disease]; R79.1 Abnormal coagulation profile; Y90.0 Blood alcohol level of less than 20 mg/100 ml; D47.3 Essential (hemorrhagic) thrombocythemia; G62.9 Polyneuropathy, unspecified; I10 Essential (primary) hypertension; E78.5 Hyperlipidemia, unspecified; E53.8 Deficiency of other specified B group vitamins; F32.9 Major depressive disorder, single episode, unspecified; F41.9 Anxiety disorder, unspecified; Z86.718 Personal history of other venous thrombosis and embolism; Z79.01 Long term (current) use of anticoagulants; Z98.890 Other specified postprocedural states; Z79.1 Long term (current) use of non-steroidal anti-inflammatories (NSAID); Z79.02 Long term (current) use of antithrombotics/antiplatelets; Z79.891 Long term (current) use of opiate analgesic; Z79.899 Other long term (current) drug therapy; Z88.6 Allergy status to analgesic agent; Z91.040 Latex allergy status; Z91.048 Other nonmedicinal substance allergy status; Z82.49 Family history of ischemic heart disease and other diseases of the circulatory system; Z83.3 Family history of diabetes mellitus
CPT/HCPCS: 36415; 70450; 70551; 71045; 80048; 80053; 80307; 80320; 80329; 81003; 82140; 82550; 82607; 82728; 82746; 83540; 83550; 83605; 83735; 83921; 84443; 84484; 85025; 85610; 87641; 93005; 95816; 99284; A9270-GY; G0480; G8978-GP-CJ; G8979-GP-CI; G8987-GO-CI; G8988-GO-CI; G8989-GO-CI; J1630; J1650; J2060; J3411; J3475; J3486

== ENCOUNTER 2020-10-22 08:54 | Inpatient (IN) ==
[2020-10-22] MEDS ORDERED: Cefpodoxime 200 mg (NF) PO SCH (18:00)
[2020-10-23 06:46] LABS: ABS Eosinophils 0.5 10^3/ul (0-0.6); ABS Lymphocytes 1.7 10^3/ul (1.0-4.8); ABS Monocytes 0.8 10^3/ul (0-0.8); ABS Neutrophils 5.2 10^3/ul (1.5-7.7); Eosinophil % 5.6 %; Hematocrit 35 % (42-52); Hemoglobin 11.5 g/dL (14.0-18.0); Lymphocyte % 21.1 %; Mean Corpuscular HGB Conc 33 g/dL (31-36); Mean Corpuscular Hemoglobin 25 pg (27-31); Mean Corpuscular Volume 76 fL (80-94); Mean Platelet Volume 7.7 fL (7.4-10.4); Nucleated Red Blood Cells % 0.1; Platelet Count 674 10^3/uL (150-450); Red Blood Count 4.62 10^6 /uL (4.18-5.48); Red Cell Distribution Width 18 % (10-15); White Blood Count 8.1 10^3/uL (3.5-10.8)
[2020-10-23 07:08] LABS: Albumin 3.5 g/dL (3.2-5.2); Calcium 8.9 mg/dL (8.6-10.3); Potassium 4.4 mmol/L (3.5-5.0); Total Bilirubin 0.4 mg/dL (0.2-1.0)
[2020-10-23 07:14] LABS: Albumin/Globulin Ratio 1.2 (1-3); EGFR African American 108.3 (>60); EGFR Non-African American 89.5 (>60); Globulin 2.9 g/dL (2-4); Total Protein 6.4 g/dL (6.4-8.9)
[2020-10-23] MEDS: Venlafaxine XR 75 mg PO SCH (08:41)
[2020-10-23] MEDS: cefTRIAXone 2 GM ADDV.VIAL 2 GM in NS 0.9% 100 ml BAG 100 ML IV SCH (09:19)
[2020-10-23] MEDS: Heparin 5000 UNITS/ML 1 mL VIAL SUBCUT SCH (20:02)
[2020-10-24] MEDS: Venlafaxine XR 75 mg PO SCH (09:04)
[2020-10-24] MEDS: Heparin 5000 UNITS/ML 1 mL VIAL SUBCUT SCH ×2 (09:04→21:11)
[2020-10-24] MEDS: cefTRIAXone 2 GM ADDV.VIAL 2 GM in NS 0.9% 100 ml BAG 100 ML IV SCH (11:00)
[2020-10-25] MEDS: Heparin 5000 UNITS/ML 1 mL VIAL SUBCUT SCH ×2 (08:57→22:14)
[2020-10-25] MEDS: Venlafaxine XR 75 mg PO SCH (08:58)
[2020-10-25] MEDS: cefTRIAXone 2 GM ADDV.VIAL 2 GM in NS 0.9% 100 ml BAG 100 ML IV SCH (08:58)
[2020-10-25] MEDS: Senna TAB 8.6 mg TAB PO PRN (22:14)
[2020-10-26] MEDS: Heparin 5000 UNITS/ML 1 mL VIAL SUBCUT SCH ×2 (09:07→21:02)
[2020-10-26] MEDS: Venlafaxine XR 75 mg PO SCH (09:07)
[2020-10-26] MEDS: cefTRIAXone 2 GM ADDV.VIAL 2 GM in NS 0.9% 100 ml BAG 100 ML IV SCH (09:41)
[2020-10-27] MEDS: Heparin 5000 UNITS/ML 1 mL VIAL SUBCUT SCH ×2 (08:30→20:44)
[2020-10-27] MEDS: Venlafaxine XR 75 mg PO SCH (08:31)
[2020-10-27] MEDS: cefTRIAXone 2 GM ADDV.VIAL 2 GM in NS 0.9% 100 ml BAG 100 ML IV SCH (09:06)
[2020-10-27] MEDS: diPHENhydraMINE 25 mg TAB PO PRN (18:20)
[2020-10-27] MEDS: Senna TAB 8.6 mg TAB PO PRN (20:44)
[2020-10-28] MEDS: Heparin 5000 UNITS/ML 1 mL VIAL SUBCUT SCH ×2 (09:15→21:24)
[2020-10-28] MEDS: Venlafaxine XR 75 mg PO SCH (09:15)
[2020-10-28] MEDS: cefTRIAXone 2 GM ADDV.VIAL 2 GM in NS 0.9% 100 ml BAG 100 ML IV SCH (09:22)
[2020-10-28] MEDS: diPHENhydraMINE 25 mg TAB PO PRN ×2 (11:00→17:29)
[2020-10-29] MEDS: Heparin 5000 UNITS/ML 1 mL VIAL SUBCUT SCH ×2 (09:04→21:54)
[2020-10-29] MEDS: Venlafaxine XR 75 mg PO SCH (09:05)
[2020-10-29] MEDS: cefTRIAXone 2 GM ADDV.VIAL 2 GM in NS 0.9% 100 ml BAG 100 ML IV SCH (09:50)
[2020-10-30 05:32] LABS: ABS Basophils 0.1 10^3/ul (0-0.2); ABS Eosinophils 0.4 10^3/ul (0-0.6); ABS Lymphocytes 1.8 10^3/ul (1.0-4.8); ABS Monocytes 0.7 10^3/ul (0-0.8); ABS Neutrophils 7.1 10^3/ul (1.5-7.7); Hematocrit 33 % (42-52); Hemoglobin 10.8 g/dL (14.0-18.0); Lymphocyte % 18.2 %; Mean Corpuscular HGB Conc 33 g/dL (31-36); Mean Corpuscular Hemoglobin 24 pg (27-31); Mean Corpuscular Volume 75 fL (80-94); Mean Platelet Volume 7.5 fL (7.4-10.4); Platelet Count 1003 10^3/uL (150-450); Red Blood Count 4.45 10^6 /uL (4.18-5.48); Red Cell Distribution Width 18 % (10-15); White Blood Count 10.1 10^3/uL (3.5-10.8)
[2020-10-30 05:42] LABS: Albumin 3.4 g/dL (3.2-5.2); Albumin/Globulin Ratio 1.2 (1-3); Calcium 8.6 mg/dL (8.6-10.3); EGFR African American 106.9 (>60); EGFR Non-African American 88.3 (>60); Globulin 2.8 g/dL (2-4); Potassium 4.1 mmol/L (3.5-5.0); Total Bilirubin 0.4 mg/dL (0.2-1.0); Total Protein 6.2 g/dL (6.4-8.9)
[2020-10-30] MEDS: Venlafaxine XR 75 mg PO SCH (08:27)
[2020-10-30] MEDS: Heparin 5000 UNITS/ML 1 mL VIAL SUBCUT SCH ×2 (08:27→21:25)
[2020-10-30] MEDS: cefTRIAXone 2 GM ADDV.VIAL 2 GM in NS 0.9% 100 ml BAG 100 ML IV SCH (08:51)
[2020-10-31] MEDS: Heparin 5000 UNITS/ML 1 mL VIAL SUBCUT SCH ×2 (09:11→22:05)
[2020-10-31] MEDS: Venlafaxine XR 75 mg PO SCH (09:11)
[2020-10-31] MEDS: cefTRIAXone 2 GM ADDV.VIAL 2 GM in NS 0.9% 100 ml BAG 100 ML IV SCH (11:02)
[2020-11-01] MEDS: Venlafaxine XR 75 mg PO SCH (08:28)
[2020-11-01] MEDS: Heparin 5000 UNITS/ML 1 mL VIAL SUBCUT SCH ×2 (08:28→21:02)
[2020-11-01] MEDS: cefTRIAXone 2 GM ADDV.VIAL 2 GM in NS 0.9% 100 ml BAG 100 ML IV SCH (09:44)
[2020-11-02] MEDS: Venlafaxine XR 75 mg PO SCH (09:24)
[2020-11-02] MEDS: cefTRIAXone 2 GM ADDV.VIAL 2 GM in NS 0.9% 100 ml BAG 100 ML IV SCH (09:24)
[2020-11-02] MEDS: Heparin 5000 UNITS/ML 1 mL VIAL SUBCUT SCH ×2 (09:25→19:34)
[2020-11-03] MEDS: cefTRIAXone 2 GM ADDV.VIAL 2 GM in NS 0.9% 100 ml BAG 100 ML IV SCH (08:24)
[2020-11-03] MEDS: Heparin 5000 UNITS/ML 1 mL VIAL SUBCUT SCH ×2 (09:13→20:51)
[2020-11-03] MEDS: Venlafaxine XR 75 mg PO SCH (09:24)
[2020-11-03] MEDS: diPHENhydraMINE 25 mg TAB PO PRN (09:58)
[2020-11-04] MEDS: Venlafaxine XR 75 mg PO SCH (08:09)
[2020-11-04] MEDS: Heparin 5000 UNITS/ML 1 mL VIAL SUBCUT SCH ×2 (08:11→21:08)
[2020-11-04] MEDS: cefTRIAXone 2 GM ADDV.VIAL 2 GM in NS 0.9% 100 ml BAG 100 ML IV SCH (08:44)
[2020-11-05] MEDS: cefTRIAXone 2 GM ADDV.VIAL 2 GM in NS 0.9% 100 ml BAG 100 ML IV SCH (07:00)
[2020-11-05] MEDS: Venlafaxine XR 75 mg PO SCH (08:35)
[2020-11-05] MEDS: Heparin 5000 UNITS/ML 1 mL VIAL SUBCUT SCH ×2 (08:37→21:48)
[2020-11-06 06:18] LABS: ABS Eosinophils 0.4 10^3/ul (0-0.6); ABS Lymphocytes 1.7 10^3/ul (1.0-4.8); ABS Monocytes 0.5 10^3/ul (0-0.8); Eosinophil % 5.2 %; Hematocrit 31 % (42-52); Hemoglobin 10.2 g/dL (14.0-18.0); Lymphocyte % 21.9 %; Mean Corpuscular HGB Conc 33 g/dL (31-36); Mean Corpuscular Hemoglobin 25 pg (27-31); Mean Corpuscular Volume 75 fL (80-94); Mean Platelet Volume 7.4 fL (7.4-10.4); Platelet Count 781 10^3/uL (150-450); Red Blood Count 4.16 10^6 /uL (4.18-5.48); Red Cell Distribution Width 18 % (10-15); White Blood Count 7.6 10^3/uL (3.5-10.8)
[2020-11-06 06:33] LABS: Albumin 3.4 g/dL (3.2-5.2); Albumin/Globulin Ratio 1.2 (1-3); Calcium 8.7 mg/dL (8.6-10.3); EGFR African American 106.9 (>60); EGFR Non-African American 88.3 (>60); Globulin 2.8 g/dL (2-4); Potassium 4.3 mmol/L (3.5-5.0); Total Bilirubin 0.3 mg/dL (0.2-1.0); Total Protein 6.2 g/dL (6.4-8.9)
[2020-11-06] MEDS: cefTRIAXone 2 GM ADDV.VIAL 2 GM in NS 0.9% 100 ml BAG 100 ML IV SCH (08:29)
[2020-11-06] MEDS: Venlafaxine XR 75 mg PO SCH (09:23)
[2020-11-06] MEDS: Heparin 5000 UNITS/ML 1 mL VIAL SUBCUT SCH ×2 (09:23→21:22)
[2020-11-07] MEDS: Heparin 5000 UNITS/ML 1 mL VIAL SUBCUT SCH ×2 (08:22→20:39)
[2020-11-07] MEDS: Venlafaxine XR 75 mg PO SCH (08:22)
[2020-11-07] MEDS: cefTRIAXone 2 GM ADDV.VIAL 2 GM in NS 0.9% 100 ml BAG 100 ML IV SCH (10:22)
[2020-11-07] MEDS ORDERED: COVID-19 VACCINE, AD26(JANSSEN)/PF 0.5 ML IM ONE (20:15)
[2020-11-08 06:53] VITALS: BP 136/62
[2020-11-08] MEDS: Heparin 5000 UNITS/ML 1 mL VIAL SUBCUT SCH (08:27)
[2020-11-08] MEDS: Venlafaxine XR 75 mg PO SCH (08:28)
== END 2020-11-08 13:16 ==
LOC: PMRU 16:38
PROVIDERS: ADMIT Physical Medicine & Rehabilitation; ATTEND Physical Medicine & Rehabilitation